=== PATIENT | female | born 1935 | race Caucasian/White ===

== ENCOUNTER 2023-03-17 23:12 | Emergency (ER) | payer MEDICARE, MEDICAID, SELFPAY ==
--- NOTE | ~2023-03-17 | CT_ITS ---
CT of the Abdomen and Pelvis: Indication: Abdominal pain Technique: 2.5 mm axial scans were obtained through the abdomen and pelvis following intravenous adm inistration of 85 cc of Omnipaque 350. Dose reduction technique was used on this scan by utilizing au tomated exposure control and iterative reconstruction technique. The dose-length product (DLP) was 10 58.00 mGy-cm. Findings: Scans through the lung bases demonstrate mild bibasilar atelectatic change. There is diffuse fatty infiltration of liver. There are very small layering gallstones. The spleen, p ancreas, adrenals and kidneys are within normal limits. There are atherosclerotic calcifications of t he aorta. No lymphadenopathy. No bowel obstruction or bowel wall thickening. There is no evidence to suggest acute appendicitis. Images through the pelvis were performed. Urinary bladder unremarkable. No pelvic mass seen. No ascit es. Impression: No acute abnormality. Cholelithiasis. Diffuse fatty infiltration of liver. Reviewed, dictated and finalized at location . RIBUTION SOLICITOR Impression: No acute abnormality. Cholelithiasis. Diffuse fatty infiltration of liver.
[2023-03-17 23:13] VITALS: BP 131/63; PULSE 78; RESP 18; TEMP 36.5; O2SAT 98
[2023-03-18 00:11] VITALS: BP 132/60; PULSE 73; RESP 16; O2SAT 97
[2023-03-18 00:13] LABS: Basophils Absolute Auto 0.1 K/mm3 (0.0-0.1); Basophils Percent Auto 0.7 % (0.2-1.2); Eosinophils Percent Auto 0.4 % (0-4.4); Hematocrit 34.1 % (37.0-47.0); Hemoglobin 10.5 g/dL (12.0-15.0); Immature Granulocyte Absolute 0.07 K/mm3 (0.00-0.031); Lymphocytes Absolute Auto 0.63 K/mm3 (0.9-3.2); Lymphocytes Percent Auto 9.3 % (18.3-44.2); Mean Corpuscular HGB Conc 30.8 g/dl (32-36); Mean Corpuscular Hemoglobin 27.3 pg (26-34); Mean Corpuscular Volume 88.8 fl (80-100); Neutrophils Percent Auto 74.6 % (45.5-73.1); Platelet Count Result 301 k/mm3 (150-375); Red Blood Count 3.84 M/mm3 (4.2-5.4); Red Cell Distribution Width 14.6 % (11.5-14.5); White Blood Count 6.8 K/mm3 (4.5-10.0)
[2023-03-18 00:38] LABS: Alanine Aminotransferase 20 U/L (6-35); Albumin Level 3.4 g/dL (3.5-5.1); Alkaline Phosphatase 128 U/L (38-126); Anion Gap 14 mmol/L (8-16); Aspartate Amino Transferase 20 U/L (14-36); Bilirubin,Total 1.2 mg/dL (0.2-1.3); Blood Urea Nitrogen 36 mg/dL (7-17); Carbon Dioxide 24 mmol/L (22-30); Chloride 104 mmol/L (98-107); Estimated CRCL calculation 28 ml/min; Estimated Glomerular Filt Rate 39; Glucose 277 mg/dL (65-110); Lipase 154 U/L (23-300); Potassium 3.9 mmol/L (3.4-5.0); Sodium 142 mmol/L (137-145)
[2023-03-18 00:40] LABS: Lactic Acid Reflex 1.3 mmol/L (0.7-2.0)
[2023-03-18 00:56] LABS: Estimated CRCL calculation 23 ml/min; Estimated Glomerular Filt Rate 31
[2023-03-18 01:01] LABS: INR 1.3; Partial Thromboplastin Time 39.1 SECONDS (22.3-36.8); Prothrombin Time 16.6 Seconds (11.1-14.7)
[2023-03-18 01:35] VITALS: BP 144/63; PULSE 54; RESP 15; TEMP 36.9; O2SAT 99
--- NOTE | 2023-03-18 01:41 | ED.GENADULT ---
HPI - General Adult General Chief complaint: Recheck/Abnormal Lab/Rx Stated complaint: ABNORMAL KUB AT FACILITY Time Seen by Provider: 03/17/23 23:29 History of Present Illness HPI narrative: Patient is a 7-year-old female who presents emergency department with chief complaint of abnormal abdominal x-ray. Patient from a local nursing facility apparently they did a KUB and notice there were loops of bowel that look enlarged. The patient currently has no complaint Related Data Allergies Allergy/AdvReac Type Severity Reaction Status Date / Time ciprofloxacin [From Cipro] Allergy Other Verified 03/18/23 02:55 levofloxacin Allergy Other Verified 03/18/23 02:55 Penicillins Allergy Other Verified 03/18/23 02:55 Sulfa (Sulfonamide Allergy Other Verified 03/18/23 02:55 Antibiotics) Review of Systems Review of Systems: A 10 system review of systems was completed on the patient and is negative except for what is stated in the HPI. Nursing and ancillary documentation was reviewed. PMFSH Social History Social History Smoking status: Never smoker Exam Narrative: GENERAL: Well-appearing, well-nourished, and in no acute distress. HEAD: Normocephalic, atraumatic. EYES: PERRLA and EOMI. ENT: Nares clear, no rhinorrhea or epistaxis. Mucous membranes moist. NECK: Supple. CHEST: Clear to auscultation. No respiratory distress. HEART: Regular rate and rhythm. No murmur heard. Normal peripheral pulses. ABDOMEN: Soft, nontender, nondistended, normal active bowel sounds. EXTREMITIES: Normal range of motion. No edema. SKIN: Warm, dry, no rash. NEURO: No focal deficits. Alert and oriented x1. PSYCH: Normal mood and affect. Course Vital Signs Vital signs: Vital Signs Temperature 36.5 C 03/17/23 23:13 Pulse Rate 78 03/17/23 23:13 Respiratory Rate 18 03/17/23 23:13 Blood Pressure 131/63 03/17/23 23:13 Pulse Oximetry 98 03/17/23 23:13 Oxygen Delivery Room Air 03/17/23 23:13 Temperature 36.9 C 03/18/23 01:35 Pulse Rate 54 L 03/18/23 01:35 Respiratory Rate 15 03/18/23 01:35 Blood Pressure 144/63 H 03/18/23 01:35 Pulse Oximetry 99 03/18/23 01:35 Oxygen Delivery Room Air 03/17/23 23:13 Medical Decision Making MDM Narrative Medical decision making narrative: Differential diagnosis includes small-bowel obstruction, intra-abdominal infection, Laboratory studies were obtained on the patient which showed a white blood cell count of 6.8 hemoglobin was 10.5 electrolytes showed a creatinine 1.6 glucose was 277 lactic acid was 1.3 bilirubin was 1.2 AST was 20 ALT was 20 alk-phos is [address] scan of the abdomen pelvis was read by [facility] and showed a distended gallbladder but otherwise no acute findings there is no evidence of acute diverticulitis no evidence of small-bowel obstruction and no evidence of acute appendicitis. Vital Signs Vital Signs: Vital Signs Temperature 36.5 C 03/17/23 23:13 Pulse Rate 78 03/17/23 23:13 Respiratory Rate 18 03/17/23 23:13 Blood Pressure 131/63 03/17/23 23:13 Pulse Oximetry 98 03/17/23 23:13 Oxygen Delivery Room Air 03/17/23 23:13 Temperature 36.9 C 03/18/23 01:35 Pulse Rate 54 L 03/18/23 01:35 Respiratory Rate 15 03/18/23 01:35 Blood Pressure 144/63 H 03/18/23 01:35 Pulse Oximetry 99 03/18/23 01:35 Oxygen Delivery Room Air 03/17/23 23:13 Lab Data 03/18/23 00:05 03/18/23 00:31 Labs: Lab Results 03/18/23 03/18/23 03/18/23 Range/Units 00:05 00:31 02:18 WBC 6.8 (4.5-10.0) K/mm3 RBC 3.84 L (4.2-5.4) M/mm3 Hgb 10.5 L (12.0-15.0) g/dL Hct 34.1 L (37.0-47.0) % MCV 88.8 (80-100) fl MCH 27.3 (26-34) pg MCHC 30.8 L (32-36) g/dl RDW 14.6 H (11.5-14.5) % Plt Count 301 (150-375) k/mm3 MPV 10.0 (7.4-10.4) fl Immature Gran % (Auto) 1.0 H
[2023-03-18 02:42] LABS: Appearance Urine Turbid (Clear); Bacteria Urine 4+ /hpf; Bilirubin Urine Negative (Negative); Blood Urine 2+ (Negative); Color Urine Yellow (Yellow); Glucose Urine UA 1+ mg/dL (Negative); Ketones Urine 2+ mg/dL (Negative); Leukocyte Esterase Ur 3+ LEU/UL (Negative); Nitrate Urine Negative (Negative); Protein Urine 3+ mg/dL (Negative); Specific Grav Ur 1.016 (1.001-1.035); Squamous Epithelial Cell Urine None seen /hpf (Few); Urobilinogen Urine 0.2 mg/dL (<2.0); WBC Urine >100 /hpf
[2023-03-18 02:45] LABS: Add Urine Microscopic? YES
[2023-03-18 04:10] VITALS: PULSE 63; RESP 16; O2SAT 98
== END 2023-03-18 04:10 ==
PROVIDERS: Emergency Provider Emergency Medicine; PCP Family Medicine
DX: R93.3 Abnormal findings on diagnostic imaging of other parts of digestive tract (principal); N39.0 Urinary tract infection, site not specified
CPT/HCPCS: 36415; 74177; 80053; 81001; 83605; 83690; 85025; 85610; 85730; 87077; 87086; 87186; 99284; Q9967

== ENCOUNTER 2023-03-25 08:39 | Outpatient (CLI) | payer MEDICARE, MEDICAID, SELFPAY ==
--- NOTE | ~2023-03-25 | NM_ITS ---
EXAMINATION: NM hepatobiliary wo pharm DATE: 03/25/2023 10:34 INDICATION: Cholelithiasis without obstruction COMPARISON: CT dated 03/18/2023 TECHNIQUE: 5 mCi Tc-99m mebrofenin (Choletec) was administered intravenously. Scintigraphic images o f the abdomen were obtained for one hour. At the 1 hour time point, the patient drank 8 oz Ensure, an d imaging was continued for 60 minutes. Gallbladder ejection fraction was calculated by the technolog ist. FINDINGS: There is normal clearance of radiotracer from the blood pool. There is homogeneous tracer u ptake by the liver. Activity progresses to the bowel and gallbladder. The gallbladder ejection fract ion (GBEF) is 80%. Note that with this technique, normal GBEF >= 33%. IMPRESSION: 1. Normal hepatobiliary scan Reviewed, dictated and finalized at location A. H SCIENCE TECHNICIAN
== END 2023-03-25 08:40 | disposition home or self-care (01) ==
PROVIDERS: PCP Family Medicine; Visit Provider Family Medicine
DX: K80.80 Other cholelithiasis without obstruction (principal)
CPT/HCPCS: 78226; A9537

== ENCOUNTER 2023-08-08 16:32 | Emergency (ER) | payer MEDICARE, MEDICAID, SELFPAY ==
--- NOTE | ~2023-08-08 | CT_ITS ---
EXAMINATION: CT brain wo con DATE: 08/08/2023 17:05 INDICATION: Head injury. TECHNIQUE: Computed tomography (CT) of the head was performed without intravenous contrast. The mA wa s adjusted according to patient size. Iterative reconstruction technique was employed. The dose-lengt h product was 605.33 mGy-cm. COMPARISON: None FINDINGS: There are old infarcts involving the right frontal parietal region and right temporal lobe. There are scattered areas of low attenuation in the cerebral white matter. There is no intracranial hemorrhage, acute infarction, or abnormal intracranial mass lesion. There is ex vacuo dilatation of t emporal horn right lateral ventricle. There are likely changes of ocular lens replacement surgeries. There is mild mucosal thickening in the paranasal sinuses. The mastoid air cells are normal. IMPRESSION: 1. 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 2. Mild nonspecific cerebral white matter disease, which likely represents chronic small vessel ische rima disease. Reviewed, dictated and finalized at location A. IMPRESSION: 1. 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 2. 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
[2023-08-08 16:33] VITALS: BP 142/55; PULSE 58; RESP 20; TEMP 36.4; O2SAT 100
--- NOTE | 2023-08-08 16:54 | PC.NURSE ---
pt taken to ct at this time
--- NOTE | 2023-08-08 17:05 | PC.NURSE ---
Pt returned to room 14
--- NOTE | 2023-08-08 17:16 | ED.FALL ---
HPI - Fall General Chief Complaint: Fall Stated Complaint: glf, hit head, blood thinners History of Present Illness HPI Narrative: 88-year-old female presents emergency department from local long-term for evaluation after having a ground level fall. 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 Patient is at her baseline currently. Patient does not recall the fall. Staff states that the fall was unwitnessed and are unsure the patient struck her head but they did note that the patient had hematoma. Patient denies any pain complaints. Related Data Allergies Allergy/AdvReac Type Severity Reaction Status Date / Time ciprofloxacin [From Cipro] Allergy Other Verified 03/18/23 02:55 levofloxacin Allergy Other Verified 03/18/23 02:55 Penicillins Allergy Other Verified 03/18/23 02:55 Sulfa (Sulfonamide Allergy Other Verified 03/18/23 02:55 Antibiotics) Review of Systems Review of Systems: All systems reviewed & are unremarkable except as noted in HPI and below PMFSH Social History Social History Smoking status: Never smoker Exam Narrative: APPEARANCE: Well appearing, no pain, no distress, well-nourished. HEAD: normocephalic, atraumatic. EYES: PERRLA/EOMI, conjunctivae clear. NOSE: Normal no drainage EARS:TMS clear with good light reflex. THROAT: Pharynx clear, no exudate. NECK: Supple. No adenopathy, no masses. RESPIRATORY: Airway patent, respirations nonlabored. Clear to auscultation bilaterally, no rales, rhonchi, wheezing. CARDIOVASCULAR: Regular rate and rhythm without murmurs rubs or gallops. ABDOMINAL: Soft, nontender, nondistended, normal bowel sounds MUSCULOSKELETAL: Moves all extremities. Strength/ROM intact, No edema, No calf tenderness. NEURO: Alert. Cranial nerves II through XII intact. Grossly intact SKIN: Warm, dry. Normal Color Course Vital Signs Vital signs: Vital Signs Temperature 97.5 F L 08/08/23 16:33 Pulse Rate 58 L 08/08/23 16:33 Respiratory Rate 20 08/08/23 16:33 Blood Pressure 142/55 H 08/08/23 16:33 Pulse Oximetry 100 08/08/23 16:33 Oxygen Delivery Room Air 08/08/23 16:33 Temperature 97.5 F L 08/08/23 16:33 Pulse Rate 55 L 08/08/23 17:43 Respiratory Rate 17 08/08/23 17:43 Blood Pressure 126/56 L 08/08/23 17:43 Pulse Oximetry 100 08/08/23 17:43 Oxygen Delivery Room Air 08/08/23 16:33 MDM - Fall MDM Narrative Medical decision making narrative: 88-year-old female presents to the emergency department for evaluation for a ground level fall and suspected head injury. Patient denies any pain or complaint. Patient had no cervical spine tenderness to palpation. Head CT showed no acute hemorrhage or infarct. On re-evaluation patient continues to deny any pain or complaint. Patient was discharged back to her care facility. Differential Diagnosis Differential diagnosis: Likely other (Subarachnoid hemorrhage, subdural hematoma, skull fracture, skeletal muscle injury) Imaging Data Radiologist's impression: Impressions Head CT 08/08/23 17:06 IMPRESSION: 1. 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 2. Mild nonspecific cerebral white matter disease, which likely represents chronic small vessel ischemic disease. Discharge Plan Discharge Clinical Impression: Head injury Patient Disposition: [place] Skilled Nursing/Asst Living Condition: Stable Instructions: Antibiotic Form Additional Instructions: Have close follow-up with your primary care physician Prescriptions: No Action cephalexin 500 mg capsule 500 mg PO Q12H 7 Days Qty: 14 0RF Follow-up/Referrals: Collette Walker MD [Primary Care Provider] -
[2023-08-08 17:43] VITALS: BP 126/56; PULSE 55; RESP 17; O2SAT 100
== END 2023-08-08 18:32 ==
PROVIDERS: Emergency Provider Emergency Medicine; PCP Family Medicine
DX: S09.90XA Unspecified injury of head, initial encounter (principal); F03.90 Unspecified dementia, unspecified severity, without behavioral disturbance, psychotic disturbance, mood disturbance, and anxiety; R90.82 White matter disease, unspecified; W19.XXXA Unspecified fall, initial encounter
CPT/HCPCS: 70450; 99284

== ENCOUNTER 2024-05-28 05:23 | Inpatient (IN) | payer OTHER, SELFPAY ==
[2024-05-28] VITALS (9 sets, daily range): BP systolic 105–162; BP diastolic 56–72; PULSE 58–76; RESP 15–19; TEMP 36.1–37.1; O2SAT 96–99; BMI 34.7
--- NOTE | ~2024-05-28 | CT_ITS ---
Non-contrast CT scan of the Abdomen and Pelvis Clinical indication: Abdominal distention Technique: 2.5 mm axial scans were obtained through the abdomen and pelvis without intravenous or or al contrast. Dose reduction technique was used on this scan by utilizing automated exposure control a nd iterative reconstruction technique. The dose-length product (DLP) was 1318.36 mGy-cm. COMPARISON: 03/18/2023 Findings: Images through the lung bases reveal no abnormalities. There is no evidence of renal or ureteral calculi. The kidneys and the ureters are nondilated. The liver, spleen, pancreas, and adrenals appear normal. Small layering gallstones/gallbladder sludge present. There are atherosclerotic calcifications of the aorta. . There is no evidence of bowel obstruction. Questionable minimal acute diverticulitis at the proximal transverse colon. Images through the pelvis were performed. There is no evidence of ascites or lymphadenopathy. Urinary bladder unremarkable. No pelvic mass seen. Status post hysterectomy. There is fracture of the L1 shanika tebral body, age indeterminate, but new since prior exam. Impression: Questionable minimal acute diverticulitis at the proximal transverse colon. L1 vertebral body compression fracture, age-indeterminate, likely subacute, new from prior exam. Cons ider MR to evaluate for marrow edema as indicated. Cholelithiasis/gallbladder sludge. Reviewed, dictated and finalized at [facility]. Impression: Questionable minimal acute diverticulitis at the proximal transverse colon. L1 vertebral body compression fracture, age-indeterminate, likely subacute, new from prior exam. Consider MR to evaluate for marrow edema as indicated. Cholelithiasis/gallbladder sludge.
--- NOTE | ~2024-05-28 | XR_ITS ---
Portable chest x-ray Comparison: None Clinical History: Altered mental status Findings: There is central congestive change and probable minimal basilar pulmonary edema. Cardiome diastinal silhouette is stable. Bones and soft tissues are unremarkable. Impression: Central congestive change and probable minimal bibasilar pulmonary edema. Reviewed, dictated and finalized at [facility]. Impression: Central congestive change and probable minimal bibasilar pulmonary edema.
--- NOTE | ~2024-05-28 | CT_ITS ---
CT head without contrast Indication: Altered mental status COMPARISON: 08/08/2023 Technique: Serial scans were obtained through the brain without the administration of contrast. Dose reduction technique was used on this scan by utilizing automated exposure control and iterative recon struction technique. The dose-length product (DLP) was 681.00 mGy-cm. Findings: There is no evidence of intracranial hemorrhage, mass lesion, or acute infarct. Stable righ t temporal lobe and right frontal lobe encephalomalacia. The ventricles and subarachnoid spaces are d ilated, consistent with advanced atrophy. Low attenuation regions are seen within the periventricula r white matter bilaterally, likely representing changes from chronic microvascular ischemic disease. There is no evidence of edema, mass effect or midline shift. The visualized paranasal sinuses and m astoid air cells are clear. Impression: No intracranial hemorrhage, mass, or acute infarct. Stable right temporal lobe and right frontal lobe encephalomalacia. Atrophy and chronic white matter changes, as above. Reviewed, dictated and finalized at location [facility]. Impression: No intracranial hemorrhage, mass, or acute infarct. Stable right temporal lobe and right frontal lobe encephalomalacia. Atrophy and chronic white matter changes, as above.
--- NOTE | ~2024-05-28 | US_ITS ---
EXAMINATION: US carotid duplex BI DATE: 05/29/2024 10:55 INDICATION: Transient ischemic attack. Cerebrovascular disease. TECHNIQUE: Grayscale, color Doppler, and pulsed Doppler images of the cervical carotid arteries were obtained. The degree of vessel stenosis is placed in one of the following categories: normal, <50%, 5 0-69%, >=70% but less than near-occlusion, near-occlusion, or total occlusion. Note that percent sten osis relative to normal distal artery lumen diameter is indirectly measured from velocity measurement s as described by Sj, et al. Radiology 2003; 229:340-346. COMPARISON: None. FINDINGS: RIGHT: The right common carotid artery (CCA) peak systolic velocity (PSV) is 79 cm/s. The right internal car otid artery (ICA) PSV is 61 cm/s. The right ICA end-diastolic velocity (EDV) is 8 cm/s. The right ICA /CCA PSV ratio is 0.8. Grayscale and color Doppler images yield an estimate of <50% diameter reductio n from plaque in the ICA. The external carotid artery (ECA) PSV is 85 cm/s. Per notation from the son ographer the patient was disoriented and confused and unable to remain still during evaluation preclu ding assessment of the vertebral arteries. LEFT: The left CCA PSV is 72 cm/s. The left ICA PSV is 54 cm/s. The left ICA EDV is 14 cm/s. The left ICA/C CA PSV ratio is 0.7. Grayscale and color Doppler images yield an estimate of <50% diameter reduction from plaque in the ICA. The ECA PSV is 93 cm/s. IMPRESSION: 1. <50% stenosis in the right internal carotid artery. 2. <50% stenosis in the left internal carotid artery. Reviewed, dictated and finalized at location [facility].
--- NOTE | ~2024-05-28 | MR_ITS ---
MRI of the brain Clinical History: Altered mental status, possible seizure Technique: Axial and sagittal T1-weighted images were acquired. These were followed by axial T2-weigh raul, diffusion weighted, gradient, and FLAIR images. Following intravenous administration of 18 cc Pr oHance gadolinium, T1-weighted fat-sat imaging was performed in the axial and coronal planes. Findings: There is no acute infarct, internal hemorrhage or mass lesion. There is chronic infarct ext ensively involving the anterior right temporal lobe. There are moderate to advanced chronic microvasc ular ischemic changes in the periventricular white matter. Ventricles and subarachnoid spaces are dilated. Orbits are unremarkable. There is mild sinus disease the floor the left maxillary sinus. Remaining paranasal sinuses and mastoid air cells are clear. [place] r intracranial flow voids appear intact. Sagittal midline structures are intact. No abnormal postcontrast enhancement identified. IMPRESSION: No acute abnormality. Chronic right temporal lobe infarct with background moderate to advanced chronic microvascular ischem ic change. Reviewed, dictated and finalized at location . IMPRESSION: No acute abnormality. Chronic right temporal lobe infarct with background moderate to advanced chroni c microvascular ischemic change.
--- NOTE | ~2024-05-28 | MR_ITS ---
EXAMINATION: MR lumbar spine wo con DATE: 05/30/2024 07:29 INDICATION: L1 fracture. TECHNIQUE: Magnetic resonance imaging (MRI) of the lumbar spine was performed without intravenous con trast. COMPARISON: CT 05/28/2024 FINDINGS: There is 11 degrees dextroscoliosis of lower lumbar spine. There is 9 degrees levocurvature of thoracolumbar spine. There is 3 mm anterolisthesis of L3 on L4 and L4 on L5. There is a burst fra cture of L1 with 1/5 loss of height, retropulsion of bone 4 mm into central spinal canal, and edema-l tyshawn marrow signal intensity. There is mildly decreased disc height at L3-L4, severely decreased disc height at L4-L5, and mildly decreased disc height at L5-S1. The distal spinal cord signal intensity i s normal. The conus medullaris is at L1-L2. The following disc levels are specifically discussed: L1-L2: The disc is bulging. There is moderate bilateral facet joint osteoarthritis. There is mild sebastian ateral neural foraminal stenosis. There is mild central canal stenosis. L2-L3: The disc is bulging. There is severe bilateral facet joint osteoarthritis. There is mild bilat eral neural foraminal stenosis. There is mild central canal stenosis. L3-L4: The disc is bulging and has an annular fissure. There is severe bilateral facet joint osteoart hritis. There is mild bilateral neural foraminal stenosis. There is mild central canal stenosis. L4-L5: The disc is bulging and has an annular fissure. There is severe bilateral facet joint osteoart hritis. There is moderate right and mild left neural foraminal stenosis. There is mild central canal stenosis. L5-S1: The disc is bulging. There is severe bilateral facet joint osteoarthritis. There is mild bilat eral neural foraminal stenosis. There is mild central canal stenosis. IMPRESSION: 1. L1 burst fracture, likely subacute. 2. Severe lumbar spondylosis. Reviewed, dictated and finalized at location A.
--- NOTE | 2024-05-28 05:26 | ECG_ITS ---
Test Date: 2024-05-28 05:29:43 Measurements Intervals [place] Rate: 68 P: 55 WA: 192 QRS: -9 QRSD: 78 T: 71 QT: 457 QTc: 489 Interpretive Statements SINUS RHYTHM NONSPECIFIC ST & T-WAVE ABNORMALITY PROLONGED QT INTERVAL No previous ECG available for comparison Electronically Signed On 05-28-2024 11:58:17 CDT by Duncan Gann M.D.
--- NOTE | 2024-05-28 05:28 | ED_ITS ---
HPI - General Adult General Chief complaint: Altered Mental Status Stated complaint: AMS, NEW ONSET SEIZURE? Time Seen by Provider: 05/28/24 05:26 History of Present Illness HPI narrative: Patient is a 8-year-old female who presents emergency department with chief complaint of altered mental status. Patient is from a local [facility] facility and apparently some tear between 445 and now became acutely altered per the EMS report the patient had rapid eye movement and may have had some seizure- like activity. He the patient has not been verbal since the incident patient was reported to have abdominal distension. Related Data Home Medications ?Medication ?Instructions ?Recorded ?Confirmed ?Last Taken ?Type No Home Medications 10/16/23 02/19/24 Unknown History Allergies Allergy/AdvReac Type Severity Reaction Status Date / Time ciprofloxacin (From Cipro) Allergy Other Verified 03/18/23 02:55 levofloxacin Allergy Other Verified 03/18/23 02:55 Penicillins Allergy Other Verified 03/18/23 02:55 Sulfa (Sulfonamide Allergy Other Verified 03/18/23 02:55 Antibiotics) Review of Systems 2 Review of Systems: A 10 system review of systems was completed on the patient and is negative except for what is stated in the HPI. Nursing and ancillary documentation was reviewed. [facility] Social History Social History Smoking status: Never smoker Course Vital Signs Vital signs: Vital Signs Temperature 37.1 C 05/28/24 05:21 Pulse Rate 72 05/28/24 05:21 Respiratory Rate 15 05/28/24 05:21 Blood Pressure 146/72 H 05/28/24 05:21 Pulse Oximetry 96 05/28/24 05:21 Oxygen Delivery Room Air 05/28/24 05:21 Temperature 37.1 C 05/28/24 05:21 Pulse Rate 72 05/28/24 05:21 Respiratory Rate 15 05/28/24 05:21 Blood Pressure 146/72 H 05/28/24 05:21 Pulse Oximetry 96 05/28/24 05:21 Oxygen Delivery Room Air 05/28/24 05:21 Medical Decision Making [facility] Narrative Medical decision making narrative: Differential diagnosis includes UTI, infection, ACS, intracranial hemorrhage, seizure, CVA The patient is contraindicated tPA as the patient may have had seizure-like activity also the patient has prior history of being on anticoagulants Patient initially was not able answer questions subsequently as the patient has been in the emergency department now she is able to answer questions at her baseline Vital Signs Vital Signs: Vital Signs Temperature 37.1 C 05/28/24 05:21 Pulse Rate 72 05/28/24 05:21 Respiratory Rate 15 05/28/24 05:21 Blood Pressure 146/72 H 05/28/24 05:21 Pulse Oximetry 96 05/28/24 05:21 Oxygen Delivery Room Air 05/28/24 05:21 Temperature 37.1 C 05/28/24 05:21 Pulse Rate 72 05/28/24 05:21 Respiratory Rate 15 05/28/24 05:21 Blood Pressure 146/72 H 05/28/24 05:21 Pulse Oximetry 96 05/28/24 05:21 Oxygen Delivery Room Air 05/28/24 05:21 Lab Data 05/28/24 05:43 05/28/24 05:43 Labs: Lab Results 05/28/24 Range/Units 05:43 WBC 7.7 (4.5-10.0) K/mm3 RBC 4.89 (4.2-5.4) M/mm3 Hgb 13.2 (12.0-15.0) g/dL Hct 42.1 (37.0-47.0) % MCV 86.1 (80-100) fl MCH 27.0 (26-34) pg MCHC 31.4 L (32-36) g/dl RDW 14.6 H (11.5-14.5) % Plt Count 332 (150-375) k/mm3 MPV 9.7 (7.4-10.4) fl Immature Gran % (Auto) 1.3 H (0-0.5) % Neut % (Auto) 69.3 (45.5-73.1) % Lymph % (Auto) 17.4 L (18.3-44.2) % [place] % (Auto) 8.6 H (2.6-8.5) % Eos % (Auto) 2.5 (0-4.4) % Baso % (Auto) 0.9 (0.2-1.2) % Lymph # (Auto) 1.33 (0.9-3.2) K/mm3 [place] # (Auto) 0.7 H (0.1-0.6) K/mm3 Eos # (Auto) 0.2 (0-0.3) K/mm3 Baso # (Auto) 0.1 (0.0-0.1) K/mm3 Abs Immat Gran (auto) 0.10 H (0.00-0.031) K/mm3 Absolute Neuts (auto) 5.3 (1.3-6.7) K/mm3 Absolute Nucleated RBC 0.000 (0.0-0.012) K/mm3 Nucleated RBC % 0.0 (0.0-0.2) % PT 13.2 (11.1-14.7) Seconds INR 1.0 APTT 27.2 (22.3-36.8) Seconds Sodium Pending Potassium Pending Chloride Pending Carbon Dioxide Pending Anion Gap Pending BUN Pending Creatinine Pending Estim Creat Clear Calc Pending Estimated GFR Pending Glucose Pending Lactic Acid 3.6 H (0.7-2.0) mmol/L Calcium Pending Magnesium Pending Total Bilirubin Pending AST Pending ALT Pending Alkaline Phosphatase Pending Troponin I Pending NT-Pro-B Natriuret Pep Pending Total Protein Pending Albumin Pending Lipase Pending Procalcitonin 0.1 ng/mL Urine Color Pending Urine Appearance Pending Urine pH Pending Ur Specific [place] Pending Urine Protein Pending Urine Glucose (UA) Pending Urine Ketones Pending Ur Blood (Man) Pending Urine Nitrate Pending Urine Bilirubin Pending Urine Urobilinogen Pending Leukocyte Esterase Rfl Pending Influenza A (RT-PCR) Negative (Negative) Influenza B (RT-PCR) Negative (Negative) RSV (RT-PCR) Negative (Negative) SARS-CoV-2 RNA (RT-PCR) Negative (Negative) ABG Data ABG results: 05/28/24 05:45 Puncture Site Right radial ABG pH 7.424 ABG pCO2 37.7 ABG pO2 69.3 L ABG PO2/FiO2 Ratio 3.30 ABG HCO3 24.1 ABG O2 Saturation 94.3 L ABG O2 Content 17.2 ABG Base Excess 0.0 A-a Gradient 35.3 Oxyhemoglobin 92.6 Total Hemoglobin 13.2 O2 Delivery Device Not Reportable O2 Liters/Min Not Reportable FiO2 21 Discharge Plan Discharge Clinical Impression: Altered mental status Patient Disposition: Still a Patient Condition: Stable Patient Language: Luxembourger Prescriptions: No Action No Home Medications Follow-up/Referrals: Denise,Collette Pineda MD [Primary Care Provider] - Time of Disposition: 06:38
--- OUTSIDE RECORDS SUMMARY | 2024-05-28 05:36 | XMS_ITS | Encounter Summary ---
Author Organization [facility] Health Address [address] [place] [address] Care Team Providers Care Sidewalk Repairer Name Role Phone Ramsey Peguero MD Primary Care Provider [phone] Encounter Details Date Type Department Care Team (Late st Contact Info) Description 11/17/2020 [facility] Outpatient Visit EXTERNAL NON-[facility] DEPT Geovanna Cardenas, PhD [facility] [address] Social History Tobacco Use Types Packs/Day Years Used Date Smoking Tobacco: Never Smokeless Tobacco: Never Alcohol Use Standard Drinks/Week Comments Not Currently 0 (1 standard drink = 0.6 oz pur e alcohol) rarely small amount Sex and Gender Information Value Date Recorded Sex Assigned at Not on file Gender Identity Not on file Sexual Orientation Not on file documented as of this encounter Plan of Treatment Not on file documented as of this encounter Visit Diagnoses Not on filedocumented in this encounter Care Teams Sidewalk Repairer Relationship Specialty Start Date End Date Ramsey Peguero MD [address] [place] [address] PCP - General 04/10/10 documented as of this encounter"
--- OUTSIDE RECORDS SUMMARY | 2024-05-28 05:36 | XMS_ITS | Clinical Summary ---
Author Organization [email or web address] [email or web address] Address [address] [address] Care Team Providers Care Pneumatic Press Hand Name Role Phone Ramsey Peguero MD Primary Care Provider [phone] Source Comments [facility] [email or web address],non-owned Affiliates and Associated Physician Practices is amultiple site organization consisting of ambulatory clinics and hospital sitesin [place], [place], [place] and [place]. This disclosure is being madepursuant to the Care Everywhere program and may not contain all information available regarding this patient. Last updated 17.[email or web address] Allergies Active Allergy Reactions Criticality Noted Date Comments Azithromycin Unknown 09/27/2020 Ciprofloxacin Urticaria,Rash Medium 09/27/2020 Nitrofurantoin Unknown 09/27/2020 Penicillins Unknown 09/27/2020 Quinolones Unknown 09/27/2020 Sulfa Drugs Unknown 09/27/2020 Tetracycline Unknown 09/27/2020 Medications * Be aware that medications may not be up to date on this document. Alwaysverify current medications with the patient. Medication Sig Dispensed Refills Start Date End Date Status metFORMIN (GLUCOPHAGE) 1000 MG tablet Take 1 tablet by mouth 2 times daily 09/16/2020 Active glimepiride (AMARYL) 2 MG tablet Take 1 tablet by mouth 2 times daily 09/16/2020 Active olmesartan (BENICAR) 5 MG tablet Take 1 tablet by mouth once daily Active aluminum & magnesium hydroxide (MAALOX) 200-200 MG/5ML suspension Take 5 mL by mouth every 6 hours as needed for Heartburn Active aspirin EC (ASPIRIN 81) 81 MG tablet Take 81 mg by mouth once daily Active lifitegrast (XIIDRA) 5 % opthalmic solution Instill 1 drop into both eyes 2 times daily 09/30/2019 Active estradiol (ESTRACE) 0.1 MG/GM vaginal cream Two times a week Active Probiotic Product (PROBIOTIC DAILY) capsule Take 1 capsule by mouth once daily Active Calcium Carbonate-Vit D-Min (CALCIUM 1200) 1552-6031 MG-UNIT CHEW Take 1 tablet by mouth once daily Active vitamin D3 (CHOLECALCIFEROL) 25 MCG (1000 UNITS) tablet Take 1,000 Units by mouth once daily Active multivitamin daily tablet Take 1 tablet by mouth daily with food Active B Complex Vitamins (VITAMIN B COMPLEX) tablet Take 1 tablet by mouth once daily Active vitamin C (ASCORBIC ACID) 1000 MG tablet Take 1,000 mg by mouth once daily Active zinc sulfate (ZINC-220) 220 (50 Zn) MG capsule Take 220 mg by mouth once daily Active magnesium 500 MG tablet Take 500 mg by mouth once daily Active Coenzyme Q10 (COQ10) 100 MG Take 1 capsule by mouth once daily Active Nutritional Supplements (OSTEO ADVANCE) TABS Take 1 tablet by mouth once daily Active Krill Oil 500 MG CAPS Take 1 tablet by mouth once daily Active Flaxseed, Linseed, (FLAX SEED OIL) 1000 MG Take 1 capsule by mouth once daily Active Conrad Oil (CONRAD SEED OIL EXTRACT) 1000 MG Take 1 capsule by mouth once daily Active psyllium (METAMUCIL) CAPS capsule Take 3 capsules by mouth 3 times daily Active Family History Medical History Relation Name Comments Alcohol abuse Brother Cancer Brother Diabetes - Type 1 Brother Heart Failure Brother High Cholesterol Brother Hypertension Brother Diabetes - Type 1 Father High Cholesterol Father Hypertension Father Renal Disease Father Alzheimer's Disease Mother Heart Failure Mother High Cholesterol Mother Hypertension Mother Thyroid Disease Mother Cancer - Breast Paternal Aunt Cancer Sister Cataract Sister High Cholesterol Sister Hypertension Sister Other Sister Thyroid Disease Sister Relation Name Status Comments Brother Father Mother Paternal Aunt Sister Social History Tobacco Use Types Packs/Day Years Used Date Smoking Tobacco: Never Smokeless Tobacco: Never Alcohol Use Standard Drinks/Week Comments Not Currently 0 (1 standard drink = 0.6 oz pur e alcohol) rarely small amount Sex and Gender Information Value Date Recorded Sex Assigned at Not on file Gender Identity Not on file Sexual Orientation Not on file Last Filed Vital Signs Vital Sign Reading Time Taken Comments Blood Pressure 140/64 09/27/2020 12:10 PM CDT Pulse 76 09/27/2020 12:10 PM CDT Temperature - - Respiratory Rate 14 09/27/2020 12:10 PM CDT Oxygen Saturation 98% 09/27/2020 12:10 PM CDT Inhaled Oxygen Concentration - - Weight 80.3 kg (177 lb) 09/27/2020 12:10 PM CDT Height 156.2 cm (5' 1.5 ) 09/27/2020 12:10 PM CD T Body Mass Index 32.9 09/27/2020 12:10 PM CDT Plan of Treatment Health Maintenance Due Date Last Done Comments BONE DENSITY TESTING 1935 MEDICARE AWV 12 MONTHS 1935 DTAP/TDAP/TD VACCINES (1 - Tdap) 1956 PNEUMOCOCCAL VACCINE 50+ (1 of 1 - PCV) 07/31/1987 ZOSTER VACCINE (1 of 2) 07/31/1987 Respiratory Syncytial Virus (RSV) Vaccine Pt: or over 60 yrs (1 - 1-dose 75+ series) 2012 COVID-19 VACCINE (3 - season) 2023 04/18/2020, 03/28/2020 INFLUENZA VACCINE (#1) 2023 0, 12/16/2018, 11/27/2017, Additional history exists DEPRESSION SCREENING 03/11/2024 HEPATITIS B VACCINE Aged Out No longe r eligible based on patient's age to complete this topic HIB VACCINE Aged Out No longer eligi ble based on patient's age to complete this topic HPV VACCINE Aged Out No longer eligi ble based on patient's age to complete this topic MENINGOCOCCAL (Group B) VACCINE SHARED DECISION-MAKING Aged Out No longer eligible based on patient's age to complete this topic MENINGOCOCCAL GROUPS A/C/Y/W VACCINE Aged Out No longer eligible based on patient's age to complete this topic Care Teams Pneumatic Press Hand Relationship Specialty Start Date End Date Ramsey Peguero MD [address] [place] [address] PCP - General 04/10/10
[2024-05-28 05:54] LABS: Alveolar/Arterial O2 Gradient 35.3 mmHg; Fractional Inspired Oxygen 21 %; HCO3 ABG 24.1 mEq/l (22.0-26.0); Oxygen Content ABG 17.2 %vol (16.0-22.0); Oxygen Saturation ABG 94.3 % (95.0-100.0); Oxyhemoglobin 92.6 % THb (90.0-100.0); PCO2 ABG 37.7 mmHg (35.0-45.0); PO2 ABG 69.3 mmHg (80.0-100.0); Total Hemoglobin 13.2 g/dL (12.0-18.0); pH ABG 7.424 (7.350-7.450)
[2024-05-28 05:56] LABS: Modified Allen's Test Pass; Site Drawn RIGHT RADIAL
[2024-05-28 06:04] LABS: Basophils Absolute Auto 0.1 K/mm3 (0.0-0.1); Basophils Percent Auto 0.9 % (0.2-1.2); Eosinophils Absolute Auto 0.2 K/mm3 (0-0.3); Eosinophils Percent Auto 2.5 % (0-4.4); Hematocrit 42.1 % (37.0-47.0); Hemoglobin 13.2 g/dL (12.0-15.0); Immature Granulocyte Percent A 1.3 % (0-0.5); Lymphocytes Absolute Auto 1.33 K/mm3 (0.9-3.2); Lymphocytes Percent Auto 17.4 % (18.3-44.2); Mean Corpuscular HGB Conc 31.4 g/dl (32-36); Mean Corpuscular Volume 86.1 fl (80-100); Mean Platelet Volume 9.7 fl (7.4-10.4); Monocytes Absolute Auto 0.7 K/mm3 (0.1-0.6); Monocytes Percent Auto 8.6 % (2.6-8.5); Neutrophils Absolute Auto 5.3 K/mm3 (1.3-6.7); Neutrophils Percent Auto 69.3 % (45.5-73.1); Platelet Count Result 332 k/mm3 (150-375); Red Blood Count 4.89 M/mm3 (4.2-5.4); Red Cell Distribution Width 14.6 % (11.5-14.5); White Blood Count 7.7 K/mm3 (4.5-10.0)
[2024-05-28 06:05] LABS: Lactic Acid Reflex 3.6 mmol/L (0.7-2.0)
[2024-05-28 06:09] LABS: Prothrombin Time 13.2 Seconds (11.1-14.7)
[2024-05-28 06:10] LABS: Partial Thromboplastin Time 27.2 Seconds (22.3-36.8)
[2024-05-28 06:27] LABS: Procalcitonin 0.1 ng/mL
[2024-05-28 06:29] LABS: Influenza A QL RT-PCR Negative (Negative); Influenza B QL RT-PCR Negative (Negative); RSV RNA, RT-PCR Negative (Negative); SARS-CoV-2 RNA PCR Negative (Negative)
[2024-05-28 06:43] LABS: Alanine Aminotransferase 31 U/L (6-35); Albumin Level 4.2 g/dL (3.5-5.1); Alkaline Phosphatase 193 U/L (38-126); Anion Gap 13 mmol/L (4-12); Aspartate Amino Transferase 22 U/L (14-36); Bilirubin,Total 0.8 mg/dL (0.2-1.3); Blood Urea Nitrogen 20 mg/dL (7-17); Calcium 5.3 mg/dL (8.4-10.2); Carbon Dioxide 28 mmol/L (22-30); Chloride 98 mmol/L (98-107); Estimated CRCL calculation 34 ml/min; Estimated Glomerular Filt Rate 43; Glucose 256 mg/dL (65-110); Lipase 267 U/L (23-300); Magnesium 1.7 mg/dL (1.6-2.3); NT Pro B Type Natriuretic Pept 366 pg/mL (19.9-100); Potassium 3.7 mmol/L (3.4-5.0); Sodium 139 mmol/L (137-145); Troponin I < 0.012 ng/mL (0.000-0.034)
[2024-05-28 06:49] LABS: Add Urine Microscopic? YES; Appearance Urine Clear (Clear); Bacteria Urine 4+ /hpf; Bilirubin Urine Negative (Negative); Blood Urine Negative (Negative); Color Urine Yellow (Yellow); Glucose Urine UA 1+ mg/dL (Negative); Ketones Urine Negative (Negative); Leukocyte Esterase Ur Negative LEU/UL (Negative); Need Manual Microscopic Reviewed; Nitrate Urine Positive (Negative); Non Pathogenic Casts 0-2; Protein Urine Negative (Negative); RBC Urine 0-2 /hpf (0-2); Specific Grav Ur 1.012 (1.001-1.035); Squamous Epithelial Cell Urine None Seen /hpf (Few); Urobilinogen Urine 0.2 mg/dL (<2.0); WBC Urine 0-5 /hpf (0-3)
[2024-05-28] MEDS: CALCIUM GLUCONATE 1,000 MG/10 ML VIAL 2000 MG IV PUSH (07:00)
[2024-05-28 07:50] LABS: Reflex Lactic Acid Yes or No Add Lactic
[2024-05-28 08:35] LABS: Lactic Acid 1.7 mmol/L (0.7-2.0)
--- NOTE | 2024-05-28 09:01 | ECG_ITS ---
Test Date: 2024-05-28 09:31:24 Measurements Intervals [place] Rate: 63 P: 14 TN: 176 QRS: -9 QRSD: 74 T: 74 QT: 397 QTc: 409 Interpretive Statements SINUS RHYTHM NONSPECIFIC ST & T-WAVE ABNORMALITY Compared to ECG 05/28/2024 05:29:43 Prolonged QT interval no longer present T-wave abnormality still present Electronically Signed On 05-28-2024 12:09:09 CDT by Duncan Gann M.D.
[2024-05-28 09:30] LABS: Troponin I < 0.012 ng/mL (0.000-0.034)
--- NOTE | 2024-05-28 10:05 | PC.NURSE ---
This patient, Gabriela Gutierrez, was admitted to 3 [facility] Surg Room 316-01. Patient/family oriented to hospital policies and general routines including ID bracelet, bed and alarms, visiting hours, pain management, procedures, bathroom and other care routines, personal items, smoking policy, room service/diet, and visiting hours. Information on how to activate the Rapid Response Team has been discussed. Patient/Family are encouraged to report perceived risks to care and to ask questions if they do not understand what they are told or what they should do.
--- NOTE | 2024-05-28 13:38 | PM.IMHP ---
H&P: HPI History of Present Illness Date/Time: 05/28/24 13:38 Chief Complaint: AMS-Seizures Narrative: ER-HPI narrative: Patient is a 8-year-old female who presents emergency department with chief complaint of altered mental status. Patient is from a local memory care facility and apparently some tear between 445 and now became acutely altered per the EMS report the patient had rapid eye movement and may have had some seizure-like activity. He the patient has not been verbal since the incident patient was reported to have abdominal distension. 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 MRI brain is ordered and pending, patient with c/o of abdominal distension Ct scan showed questionable minimal acute diverticulitis at the proximal transverse colon, will monitor. [facility] Past Medical History Medical History (Updated 05/29/24 @ 09:16 by Henok Kaplan MD) Cerebrovascular disease Social History Social History Smoking status: Never smoker Alcohol intake: never Substance use: never Do You Feel Safe in your Home?: Yes Lack of Transportation: No Lack of Food: Never True Current Housing: I Have Housing Concerned About Future Housing: No Difficulty Paying Gas/Electric Bills: No Difficulty Paying for Meds: No Currently Unemployed: No Education: Master's Degree or Higher Difficulty w/ Childcare or Family Care: No Spiritual care concerns: No Meds Home Medications and Allergies Home Medications ?Medication ?Instructions ?Recorded ?Confirmed ?Type acetaminophen 325 mg tablet 650 mg PO Q4H PRN pain 05/28/24 05/28/24 History (Tylenol) aluminum-mag hydroxide-simethicone 10 ml PO Q6H PRN indigestion 05/28/24 05/28/24 History 400 mg-400 mg-40 mg/5 mL oral susp (Maalox Maximum Strength) aspirin 81 mg chewable tablet 81 mg PO DAILY 05/28/24 05/28/24 History furosemide 40 mg tablet (Lasix) 40 mg PO DAILY 05/28/24 05/28/24 History glucagon HCl 1 mg solution for 1 mg subcut ONCE 05/28/24 05/28/24 History injection (Glucagon (HCl) Emergency Kit) insulin glargine 100 unit/mL (3 10 unit subcut DAILY 05/28/24 05/28/24 History mL) subcutaneous pen (Lantus Solostar U-100 Insulin) insulin glargine 100 unit/mL 10 unit subcut DAILY 05/28/24 05/28/24 History subcutaneous solution (Lantus U-100 Insulin) insulin lispro 100 unit/mL 1 sliding scale dose subcut 05/28/24 05/28/24 History subcutaneous half-unit pen USEASDIRECTD (Humalog Karsten KwikPen (U-100)) insulin lispro 100 unit/mL 5 unit subcut .COMPLEX 05/28/24 05/28/24 History subcutaneous half-unit pen (Humalog Karsten KwikPen (U-100)) losartan 25 mg tablet 25 mg PO DAILY 05/28/24 05/28/24 History magnesium hydroxide 400 mg/5 mL 10 ml PO DAILY 05/28/24 05/28/24 History oral suspension (Milk of Magnesia) metformin 1,000 mg tablet 1,000 mg PO BID 05/28/24 05/28/24 History omeprazole 20 mg tablet,delayed 20 mg PO DAILY 05/28/24 05/28/24 History release ondansetron 4 mg disintegrating 4 mg PO Q6H PRN nausea and vomiting 05/28/24 05/28/24 History tablet peg 400-propylene glycol (PF) 0.4 1 drp EACH EYE TID PRN dry eye(s) 05/28/24 05/28/24 History %-0.3 % eye drops in a dropperette (Systane (PF)) polyethylene glycol 3350 17 gram 17 g PO DAILY 05/28/24 05/28/24 History oral powder packet (Miralax) sennosides 8.6 mg capsule (senna) 8.6 mg PO BID 05/28/24 05/28/24 History trolamine salicylate 10 % topical 1 applic topical TID PRN muscle 05/28/24 05/28/24 History cream (Pain Relief (trolamine pain salicylate)) Allergies Allergy/AdvReac Type Severity Reaction Status Date / Time bromocriptine (From Cycloset) Allergy Unknown Verified 05/28/24 11:05 ciprofloxacin (From Cipro) Allergy Other Verified 03/18/23 02:55 levofloxacin Allergy Other Verified 03/18/23 02:55 morphine Allergy Unknown Verified 05/28/24 11:05 Penicillins Allergy Other Verified 03/18/23 02:55 Quinolones Allergy Hives Verified 05/28/24 11:05 Fexyhap-XIE-OcZ Reductase Allergy Unknown Verified 05/28/24 11:05 Inhibitor Sulfa (Sulfonamide Allergy Other Verified 03/18/23 02:55 Antibiotics) tetracycline Allergy Unknown Verified 05/28/24 11:05 warfarin Allergy Unknown Verified 05/28/24 11:05 cefuroxime AdvReac Mild Rash Verified 05/28/24 11:05 clindamycin AdvReac Hives Verified 05/28/24 11:05 Vital Signs Vital Signs - 24 hr 05/28/24 05:21 05/28/24 07:03 05/28/24 09:01 Temperature 37.1 C Pulse Rate 72 58 L 66 Respiratory Rate 15 19 16 Blood Pressure 146/72 H 128/70 162/69 H Pulse Oximetry 96 99 97 Oxygen Delivery Room Air 05/28/24 09:48 05/28/24 10:15 Temperature 36.1 C L Pulse Rate 62 68 Respiratory Rate 16 16 Blood Pressure 162/69 H 105/64 Pulse Oximetry 98 97 Oxygen Delivery Exam Narrative: Patient is comfortable, NAD HEENT: eyes are clear and none icteric LUNGS: Bilateral fair entry with rales HEART: RR S1S2 ABD: BS+, Soft and nontender Lower extremities: no edema SKIN: nonjaundiced Neuro: grossly intact. H&P: Results Labs Labs: Short CBC 05/28/24 Range/Units 05:43 WBC 7.7 (4.5-10.0) K/mm3 Hgb 13.2 (12.0-15.0) g/dL Hct 42.1 (37.0-47.0) % Plt Count 332 (150-375) k/mm3 BMP 05/28/24 05:43 Sodium 139 Potassium 3.7 Chloride 98 Carbon Dioxide 28 BUN 20 H D Creatinine 1.20 H Glucose 256 H Calcium 5.3 L* Cardiac Enzymes 05/28/24 05/28/24 Range/Units 05:43 09:03 Troponin I < 0.012 < 0.012 (0.000-0.034) ng/mL Liver Function 05/28/24 Range/Units 05:43 Total Bilirubin 0.8 (0.2-1.3) mg/dL AST 22 (14-36) U/L ALT 31 (6-35) U/L Alkaline Phosphatase 193 H (38-126) U/L Albumin 4.2 (3.5-5.1) g/dL Urine 05/28/24 Range/Units 05:43 Urine Color Yellow (Yellow) Urine Appearance Clear (Clear) Urine pH 5.0 (5.0-9.0) Ur Specific [place] 1.012 (1.001-1.035) Urine Protein Negative (Negative) mg/dL Urine Glucose (UA) 1+ H (Negative) mg/dL Assessment and Plan Assessment and plan (1) Dementia with anxiety: Qualifiers: Alzheimer's disease onset: late onset Dementia severity: moderate Dementia type: Alzheimer's Qualified Code(s): G30.1 - Alzheimer's disease with late onset; F02.B4 - Dementia in other diseases classified elsewhere, moderate, with anxiety Code(s): F03.94 - Unspecified dementia, unspecified severity, with anxiety Status: Acute (2) Altered mental status: Code(s): R41.82 - Altered mental status, unspecified Status: Acute (3) 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, unspecified, not intractable, without status epilepticus Status: Acute (4) Diabetes mellitus with diabetic dermatitis: Qualifiers: Diabetes mellitus intermediate teacher insulin use: without intermediate teacher use Diabetes mellitus type: type 2 Qualified Code(s): E11.620 - Type 2 diabetes mellitus with diabetic dermatitis Code(s): E11.620 - Type 2 diabetes mellitus with diabetic dermatitis Status: Acute (5) PVD (peripheral vascular disease): Code(s): I73.9 - Peripheral vascular disease, unspecified Status: Acute Plan 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 MRI brain is ordered and pending, patient with c/o of abdominal distension Ct scan showed questionable minimal acute diverticulitis at the proximal transverse colon, will monitor.
[2024-05-28 14:01] LABS: Vitamin D 25 Hydroxy 38.8 ng/mL
[2024-05-28 14:32] LABS: Folic Acid 17.6 ng/mL (2.76->20)
[2024-05-28] MEDS: metFORMIN HCL 500 MG TABLET 1000 MG PO (17:40)
[2024-05-28] MEDS: SENNOSIDES 8.6 MG TABLET PO (17:40)
[2024-05-28] MEDS: INSULIN ASPART (*BKC) 100 UNITS/ML SUB-Q ×2 (17:44→17:46)
[2024-05-28 17:45] LABS: Glucose Point of Care 227 mg/dl (65-105)
--- NOTE | 2024-05-28 17:48 | P.CONNEU_ITS ---
Assessment and Plan Assessment and plan (1) Altered mental status: Code(s): R41.82 - Altered mental status, unspecified Status: Acute (2) Dementia with anxiety: Qualifiers: Dementia type: Alzheimer's Alzheimer's disease onset: late onset D ementia severity: moderate Qualified Code(s): G30.1 - Alzheimer's disease with late onset; F02.B4 - Dementia in other diseases classified elsewhere, moderate, with anxiety Code(s): F03.94 - Unspecified dementia, unspecified severity, with anxiety Status: Acute (3) Cerebrovascular disease: Code(s): I67.9 - Cerebrovascular disease, unspecified Status: Acute Assessment and Plan: CT scan of brain shows old infarct in the right temporal lobe and right frontal lobe hence the possibility of recurrent cerebrovascular disease may be considered in the differential diagnosis. (4) CKD stage 3 due to type 2 diabetes mellitus: Code(s): E11.22 - Type 2 diabetes mellitus with diabetic chronic kidney disease; N18.30 - Chronic kidney disease, stage 3 unspecified Status: Acute Plan A change in mental status with subsequent return to somewhat of a baseline for a person with history of dementia does raise possibility of seizure disorder or transient ischemic attack or cardiac arrhythmia in terms of differential diagnosis. I would suggest continue to observe her. Serum B12 and vitamin-D and folic acid level and TSH were normal. Electrolytes were normal creatinine was slightly high at 1.00 and GFR was low at 43. Glucose 256. Lactic acid was high at 3.6. Underlying metabolic or infectious etiology may also be a consideration. CT scan of brain did not show any significant abnormalities there is area of encephalomalacia in the right temporal lobe and right frontal lobe which has been noted in the past also. I would suggest an EEG and carotid Doppler study and MRI of the brain besides clinical observation for any further recurrence of the symptoms. Please feel free to call me if you have any questions regarding this consultation. Consult date: 05/28/24 HPI: Gabriela Gutierrez is a 88 year old female Who I am evaluating for altered mental status. Patient wide awake and alert and able to talk but she does not know her current whereabouts. She carries diagnosis of dementia Alzheimer's type and she apparently came from a memory center. There is history of diabetes mellitus. I believe they EMT people have seen something that raise possibility of seizure- like activity. There is no prior history of seizures. She was unable to tell me the month or the year or where she lives at. She told me she lives in [place]. Review of Systems 2 Review of Systems: ROS unobtainable: Yes unobtainable due to mental status PMFSH Past Medical History Medical History (Updated 05/28/24 @ 17:56 by Venice Agrawal MD) Cerebrovascular disease Social History Social History Smoking status: Never smoker Alcohol intake: never Substance use: never Do You Feel Safe in your Home?: Yes Lack of Transportation: No Lack of Food: Never True Current Housing: I Have Housing Concerned About Future Housing: No Difficulty Paying Gas/Electric Bills: No Difficulty Paying for Meds: No Currently Unemployed: No Education: Master's Degree or Higher Difficulty w/ Childcare or Family Care: No Spiritual care concerns: No Meds Home Medications and Allergies Home Medications ?Medication ?Instructions ?Recorded ?Confirmed ?Type acetaminophen 325 mg tablet 650 mg PO Q4H PRN pain 05/28/24 05/28/24 History (Tylenol) aluminum-mag hydroxide-simethicone 10 ml PO Q6H PRN indigestion 05/28/24 05/28/24 History 400 mg-400 mg-40 mg/5 mL oral susp (Maalox Maximum Strength) aspirin 81 mg chewable tablet 81 mg PO DAILY 05/28/24 05/28/24 History furosemide 40 mg tablet (Lasix) 40 mg PO DAILY 05/28/24 05/28/24 History glucagon HCl 1 mg solution for 1 mg subcut ONCE 05/28/24 05/28/24 History injection (Glucagon (HCl) Emergency Kit) insulin glargine 100 unit/mL (3 10 unit subcut DAILY 05/28/24 05/28/24 History mL) subcutaneous pen (Lantus Solostar U-100 Insulin) insulin glargine 100 unit/mL 10 unit subcut DAILY 05/28/24 05/28/24 History subcutaneous solution (Lantus U-100 Insulin) insulin lispro 100 unit/mL 1 sliding scale dose subcut 05/28/24 05/28/24 History subcutaneous half-unit pen USEASDIRECTD (Humalog Karsten KwikPen (U-100)) insulin lispro 100 unit/mL 5 unit subcut .COMPLEX 05/28/24 05/28/24 History subcutaneous half-unit pen (Humalog Karsten IsaacPen (U-100)) losartan 25 mg tablet 25 mg PO DAILY 05/28/24 05/28/24 History magnesium hydroxide 400 mg/5 mL 10 ml PO DAILY 05/28/24 05/28/24 History oral suspension (Milk of Magnesia) metformin 1,000 mg tablet 1,000 mg PO BID 05/28/24 05/28/24 History omeprazole 20 mg tablet,delayed 20 mg PO DAILY 05/28/24 05/28/24 History release ondansetron 4 mg disintegrating 4 mg PO Q6H PRN nausea and vomiting 05/28/24 05/28/24 History tablet peg 400-propylene glycol (PF) 0.4 1 drp EACH EYE TID PRN dry eye(s) 05/28/24 05/28/24 History %-0.3 % eye drops in a dropperette (Systane (PF)) polyethylene glycol 3350 17 gram 17 g PO DAILY 05/28/24 05/28/24 History oral powder packet (Miralax) sennosides 8.6 mg capsule (senna) 8.6 mg PO BID 05/28/24 05/28/24 History trolamine salicylate 10 % topical 1 applic topical TID PRN muscle 05/28/24 05/28/24 History cream (Pain Relief (trolamine pain salicylate)) Allergies Allergy/AdvReac Type Severity Reaction Status Date / Time bromocriptine (From Cycloset) Allergy Unknown Verified 05/28/24 11:05 ciprofloxacin (From Cipro) Allergy Other Verified 03/18/23 02:55 levofloxacin Allergy Other Verified 03/18/23 02:55 morphine Allergy Unknown Verified 05/28/24 11:05 Penicillins Allergy Other Verified 03/18/23 02:55 Quinolones Allergy Hives Verified 05/28/24 11:05 Oyptehz-PKG-EdC Reductase Allergy Unknown Verified 05/28/24 11:05 Inhibitor Sulfa (Sulfonamide Allergy Other Verified 03/18/23 02:55 Antibiotics) tetracycline Allergy Unknown Verified 05/28/24 11:05 warfarin Allergy Unknown Verified 05/28/24 11:05 cefuroxime AdvReac Mild Rash Verified 05/28/24 11:05 clindamycin AdvReac Hives Verified 05/28/24 11:05 Vital Signs Vital Signs - 24 hr 05/28/24 05:21 05/28/24 07:03 05/28/24 09:01 Temperature 98.8 F Pulse Rate 72 58 L 66 Respiratory Rate 15 19 16 Blood Pressure 146/72 H 128/70 162/69 H Pulse Oximetry 96 99 97 Oxygen Delivery Room Air 05/28/24 09:48 05/28/24 10:15 05/28/24 14:00 Temperature 97.0 F L 97.0 F L Pulse Rate 62 68 76 Respiratory Rate 16 16 18 Blood Pressure 162/69 H 105/64 110/58 L Pulse Oximetry 98 97 98 Oxygen Delivery Exam 2 Narrative: Fully conscious alert, no aphasia or dysarthria. She does follow single step command but unable to follow 2 step commands. She does not cooperate very much for the evaluation of visual field. There is no facial asymmetry. Tongue was midline. Other cranials were grossly within normal limits. Motor system moving both upper and lower limbs however does not cooperate fully for me manual motor examination. Sensory is grossly intact. No involuntary movements. No cogwheeling was noted. No evidence of physical abuse noted. No evidence of external trauma to the head. Carotid artery the palpable. No bruit. Results Labs 05/28/24 05:43 05/28/24 05:43 Labs: Short CBC 05/28/24 Range/Units 05:43 WBC 7.7 (4.5-10.0) K/mm3 Hgb 13.2 (12.0-15.0) g/dL Hct 42.1 (37.0-47.0) % Plt Count 332 (150-375) k/mm3 [facility] 05/28/24 05:43 Sodium 139 Potassium 3.7 Chloride 98 Carbon Dioxide 28 BUN 20 H D Creatinine 1.20 H Glucose 256 H Calcium 5.3 L* Cardiac Enzymes 05/28/24 05/28/24 Range/Units 05:43 09:03 Troponin I < 0.012 < 0.012 (0.000-0.034) ng/mL Liver Function 05/28/24 Range/Units 05:43 Total Bilirubin 0.8 (0.2-1.3) mg/dL AST 22 (14-36) U/L ALT 31 (6-35) U/L Alkaline Phosphatase 193 H (38-126) U/L Albumin 4.2 (3.5-5.1) g/dL Urine 05/28/24 Range/Units 05:43 Urine Color Yellow (Yellow) Urine Appearance Clear (Clear) Urine pH 5.0 (5.0-9.0) Ur Specific [place] 1.012 (1.001-1.035) Urine Protein Negative (Negative) mg/dL Urine Glucose (UA) 1+ H (Negative) mg/dL
[2024-05-28 20:41] LABS: Glucose Point of Care 131 mg/dl (65-105)
[2024-05-29] VITALS (9 sets, daily range): BP systolic 122–129; BP diastolic 52–61; PULSE 56–72; RESP 14–17; TEMP 36.1–36.9; O2SAT 98–100
[2024-05-29 06:12] LABS: Hematocrit 38.4 % (37.0-47.0); Hemoglobin 11.8 g/dL (12.0-15.0); Mean Corpuscular HGB Conc 30.7 g/dl (32-36); Mean Corpuscular Hemoglobin 26.8 pg (26-34); Mean Corpuscular Volume 87.3 fl (80-100); Mean Platelet Volume 9.7 fl (7.4-10.4); Platelet Count Result 305 k/mm3 (150-375); Red Cell Distribution Width 14.4 % (11.5-14.5); White Blood Count 8.2 K/mm3 (4.5-10.0)
[2024-05-29 06:25] LABS: Anion Gap 10 mmol/L (4-12); Blood Urea Nitrogen 18 mg/dL (7-17); Calcium 5.8 mg/dL (8.4-10.2); Carbon Dioxide 29 mmol/L (22-30); Chloride 100 mmol/L (98-107); Estimated CRCL calculation 33 ml/min; Estimated Glomerular Filt Rate 47; Glucose 169 mg/dL (65-110); Potassium 4.2 mmol/L (3.4-5.0); Sodium 139 mmol/L (137-145)
[2024-05-29] MEDS: CALCIUM GLUC 2,000 MG/NS 100ML 2,000 MG/100 ML BAG 100 MG IVPB ×2 (06:56→13:10)
[2024-05-29 07:39] LABS: Glucose Point of Care 173 mg/dl (65-105)
[2024-05-29] MEDS: MAGNESIUM HYDROXIDE SUSP 30 ML UDC 10 ML PO (09:22)
[2024-05-29] MEDS: INSULIN GLARGINE (*BKC) 100 UNITS/ML 10 UNITS SUB-Q (09:23)
[2024-05-29] MEDS: polyethylene glycoL 3350 17 GM POWD.PACK PO (09:24)
[2024-05-29] MEDS: FUROSEMIDE 40 MG TABLET PO (09:25)
[2024-05-29] MEDS: PANTOPRAZOLE 40 MG TABLET PO (09:25)
[2024-05-29] MEDS: SENNOSIDES 8.6 MG TABLET PO ×2 (09:25→16:24)
[2024-05-29] MEDS: metFORMIN HCL 500 MG TABLET 1000 MG PO ×2 (09:25→16:24)
[2024-05-29] MEDS: ASPIRIN 81 MG CHEWABLE TABLET PO (09:25)
[2024-05-29] MEDS: LOSARTAN POTASSIUM 25 MG TABLET PO (09:26)
[2024-05-29 11:25] LABS: Glucose Point of Care 203 mg/dl (65-105)
--- NOTE | 2024-05-29 11:33 | PM.IMPN ---
Progress Note: A&P Assessment and Plan (1) Dementia with anxiety: Qualifiers: Alzheimer's disease onset: late onset Dementia severity: moderate Dementia type: Alzheimer's Qualified Code(s): G30.1 - Alzheimer's disease with late onset; F02.B4 - Dementia in other diseases classified elsewhere, moderate, with anxiety Code(s): F03.94 - Unspecified dementia, unspecified severity, with anxiety Status: Acute (2) Altered mental status: Code(s): R41.82 - Altered mental status, unspecified Status: Acute (3) 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, unspecified, not intractable, without status epilepticus Status: Acute (4) Diabetes mellitus with diabetic dermatitis: Qualifiers: Diabetes mellitus joint terminal attack controller insulin use: without joint terminal attack controller use Diabetes mellitus type: type 2 Qualified Code(s): E11.620 - Type 2 diabetes mellitus with diabetic dermatitis Code(s): E11.620 - Type 2 diabetes mellitus with diabetic dermatitis Status: Acute (5) PVD (peripheral vascular disease): Code(s): I73.9 - Peripheral vascular disease, unspecified Status: Acute Plan This is an 88-year-old female who presents to the ER with altered mental status. Patient has underlying dementia and from a local memory care center. Per EMS patient had rapid eye movement and had seizure-like activity has been nonverbal since the incident. Details not available. On ED evaluation her vitals were stable. Initially was unable to answer questions however was back to her baseline subsequently. Laboratory studies showed WBC of 7.7 hemoglobin 13.2 hematocrit of 42 platelet count of 332 ABG 7.42/37/69/24. Lactic acid high at 3.6. Chem panel with creatinine 1.1. Unremarkable electrolytes. Calcium low at 5.8. Troponin negative. Repeat lactate was 1.7. Vitamin-D 38.8 normal folate normal B12 normal at [address] head with no acute abnormality with stable right temporal lobe and right frontal lobe in encephalomalacia. He is admitted for further treatment. Neurology consulted. EEG pending and MRI brain with no acute abnormality. Chronic right temporal lobe infarct with background moderate to advanced chronic microvascular ischemic change noted. Carotid Doppler with less than 50% stenosis right and left internal carotid artery. Chest x-ray with central congestive change and probable minimal bibasilar pulmonary edema. CT abdomen pelvis with questionable minimal acute diverticulitis at proximal transverse colon. L1 vertebral body compression fracture age indeterminate likely subacute new from prior exam. Cholelithiasis/gallbladder sludge. UA negative urine culture growing E coli. Patient asymptomatic. 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 This is a chronic problem not able to take calcium supplement at home Will give calcium gluconate History of parathyroidectomy L1 vertebral body compression fracture age indeterminate no reports of back pain likely subacute. Will get MRI to further evaluate. This fracture was not present in March 2023 scan. If marrow edema and recent may benefit from TLSO brace. Neurosurgery consultation Minimal acute diverticulitis at proximal transverse colon questionable will treat with Zosyn. All also cover for UTI Hypertension Type 2 diabetes on insulin DVT prophylaxis Lovenox CKD stage 3 Code status full code Subjective Date/time seen: 05/29/24 11:33 Interval history: No overnight events reported. No new complaints. Patient almost back to baseline. Senior Environmental Technician at bedside Review of Systems Review of Systems: All systems reviewed & are unremarkable except as noted in HPI and below Exam Narrative: Patient is comfortable, NAD HEENT: eyes are clear and none icteric LUNGS: Bilateral fair entry with rales HEART: RR S1S2 ABD: BS+, Soft and nontender Lower extremities: no edema SKIN: nonjaundiced Neuro: grossly intact. Objective Data Vital Signs Vital Signs: Vital Signs - 24 hr 05/28/24 14:00 05/28/24 16:00 05/28/24 20:00 Temperature 97.0 F L Pulse Rate 76 66 67 Respiratory Rate 18 Blood Pressure 110/58 L Pulse Oximetry 98 Oxygen Delivery 05/28/24 21:34 05/29/24 00:00 05/29/24 04:00 Temperature 97.7 F Pulse Rate 69 56 L 57 L Respiratory Rate 16 Blood Pressure 127/56 L Pulse Oximetry 99 Oxygen Delivery 05/29/24 05:32 05/29/24 08:00 05/29/24 08:00 Temperature 97.2 F L Pulse Rate 70 59 L Respiratory Rate 16 Blood Pressure 129/61 Pulse Oximetry 100 100 Oxygen Delivery Room Air Intake/Output Intake/Output: Intake & Output 05/26/24 05/27/24 05/28/24 05/29/24 23:59 23:59 23:59 23:59 Intake Total 237 337 Output Total 300 Balance 237 37 Meds/Results Medications: Active Medications Generic Name Dose Route Start Last Admin Trade Name Freq PRN Reason Stop Dose Admin Acetaminophen 650 mg 05/28/24 14:33 Acetaminophen 325 Mg Tablet PO Q4H PRN pain Al Hydrox/Mg Hydrox/Simethicone 20 ml 05/28/24 14:53 Mag Hydrox/Al Hydrox/Simeth 30 Ml Udc PO Q6H PRN Indigestion Artificial Tears 1 drop 05/28/24 14:59 Artificial Tears Ophth Soln 15 Ml Bottle EACH EYE TID PRN Dry Eye(s) Aspirin 81 mg 05/29/24 09:00 05/29/24 09:25 Aspirin 81 Mg Chewable Tablet PO 81 mg DAILY OSCAR Administration Dextrose 12.5 gm 05/28/24 14:34 Dextrose 50% 25 Gm/50 Ml Syringe IV PUSH PRN PRN Hypoglycemia Protocol Furosemide 40 mg 05/29/24 09:00 05/29/24 09:25 Furosemide 40 Mg Tablet PO 40 mg DAILY OSCAR Administration Glucagon 1 mg 05/28/24 14:34 Glucagon For Inj 1 Mg Vial IM PRN PRN Hypoglycemia Protocol Glucose 15 gm 05/28/24 14:34 Glucose Oral Gel 15 Gm Of Glucse In 37.5 Gm Tube PO PRN PRN Hypoglycemia Protocol Dextrose 1,000 mls @ 100 mls/hr 05/28/24 14:34 Dextrose 5% 1,000 Ml IVPB PRN PRN Hypoglycemia Protocol Insulin Aspart 5 units 05/28/24 17:00 05/29/24 07:50 Insulin Aspart (*Bkc) 100 Units/Ml SUB-Q Not Given TIDWM OSCAR Insulin Aspart 1 - 2 units 05/28/24 21:00 05/28/24 23:01 Insulin Aspart (*Bkc) 100 Units/Ml SUB-Q Not Given [facility] Protocol Insulin Aspart 2 - 5 units 05/28/24 17:00 05/29/24 09:10 Insulin Aspart (*Bkc) 100 Units/Ml SUB-Q Not Given TIDWM [facility] Protocol Insulin Glargine 10 units 05/29/24 09:00 05/29/24 09:23 Insulin Glargine (*Bkc) 100 Units/Ml SUB-Q 10 units DAILY OSCAR Administration Losartan Potassium 25 mg 05/29/24 09:00 05/29/24 09:26 Losartan Potassium 25 Mg Tablet PO 25 mg DAILY OSCAR Administration Magnesium Hydroxide 10 ml 05/29/24 09:00 05/29/24 09:22 Magnesium Hydroxide Susp 30 Ml Udc PO 10 ml DAILY OSCAR Administration Metformin HCl 1,000 mg 05/28/24 17:00 05/29/24 09:25 Metformin Hcl 500 Mg Tablet PO 1,000 mg BID OSCAR Administration Ondansetron HCl 4 mg 05/28/24 14:33 Ondansetron Hcl Odt 4 Mg Tablet PO Q6H PRN nausea and vomiting Pantoprazole Sodium 40 mg 05/29/24 09:00 05/29/24 09:25 Pantoprazole 40 Mg Tablet PO 40 mg QAM OSCAR Administration Polyethylene Glycol 17 gm 05/29/24 09:00 05/29/24 09:24 Polyethylene Glycol 3350 17 Gm Powd.Pack PO 17 gm DAILY OSCAR Administration Senna 8.6 mg 05/28/24 17:00 05/29/24 09:25 Sennosides 8.6 Mg Tablet PO 8.6 mg BID OSCAR Administration Trolamine Salicylate 1 applic 05/28/24 14:33 Trolamine Salicylate 10% (*Bkc) 113 Gm Cream TOPICAL TID PRN muscle pain Radiology Results: ITS Impressions Abdomen/Pelvis CT 05/28/24 06:21 Impression: Questionable minimal acute diverticulitis at the proximal transverse colon. L1 vertebral body compression fracture, age-indeterminate, likely subacute, new from prior exam. Consider MR to evaluate for marrow edema as indicated. Cholelithiasis/gallbladder sludge. Head CT 05/28/24 06:23 Impression: No intracranial hemorrhage, mass, or acute infarct. Stable right temporal lobe and right frontal lobe encephalomalacia. Atrophy and chronic white matter changes, as above. Chest X-Ray 05/28/24 06:24 Impression: Central congestive change and probable minimal bibasilar pulmonary edema. Carotid Doppler Study 05/29/24 11:02 IMPRESSION: 1. <50% stenosis in the right internal carotid artery. 2. <50% stenosis in the left internal carotid artery. Brain MRI 05/29/24 11:09 IMPRESSION: No acute abnormality. Chronic right temporal lobe infarct with background moderate to advanced chronic microvascular ischemic change. Labs Labs: Laboratory Results - last 24 hr 05/28/24 05/28/24 05/28/24 13:06 17:41 20:19 WBC RBC Hgb Hct MCV MCH MCHC RDW Plt Count MPV Sodium Potassium Chloride Carbon Dioxide Anion Gap BUN Creatinine Estim Creat Clear Calc Estimated GFR Glucose POC Capillary Glucose 227 H 131 H Calcium Vitamin B12 585.0 Vitamin D 25-Hydroxy 38.8 Folate 17.6 TSH 1.660 05/29/24 05/29/24 05/29/24 05:29 07:31 11:17 WBC 8.2 RBC 4.40 Hgb 11.8 L Hct 38.4 MCV 87.3 MCH 26.8 MCHC 30.7 L RDW 14.4 Plt Count 305 MPV 9.7 Sodium 139 Potassium 4.2 Chloride 100 Carbon Dioxide 29 Anion Gap 10 BUN 18 H Creatinine 1.11 H Estim Creat Clear Calc 33 Estimated GFR 47 L Glucose 169 H POC Capillary Glucose 173 H 203 H Calcium 5.8 L* Vitamin B12 Vitamin D 25-Hydroxy Folate TSH
[2024-05-29] MEDS: INSULIN ASPART (*BKC) 100 UNITS/ML SUB-Q ×3 (11:50→16:25)
--- NOTE | 2024-05-29 13:27 | PCNEURO ---
EEG has been completed this AM. There will not be a Neurologist here to read it until this weekend.
[2024-05-29] MEDS: PIPERACILLN/TAZ 3.375GM/NS50ML 3.375 GM/50 ML BAG IVPB ×2 (14:36→20:26)
--- NOTE | 2024-05-29 16:19 | WPDNEUROSGPN ---
Progress Note: A&P Assessment and Plan (1) Burst fracture of lumbar vertebra: Code(s): S32.001A - Stable burst fracture of unspecified lumbar vertebra, initial encounter for closed fracture Status: Acute Plan I received a consult request this afternoon or this patient who was found to have an L1 burst fracture after presenting from her care home for altered mental status. I will see the patient in formal consult tomorrow. I have contacted [facility] who will fit her for an LSO brace either later today or tomorrow morning. She may be up and out of bed even without the brace and may work with physical therapy. Subjective Date/time seen: 05/29/24 16:19 Objective Data Vital Signs Vital Signs: Vital Signs - 24 hr 05/28/24 20:00 05/28/24 21:34 05/29/24 00:00 Temperature 97.7 F Pulse Rate 67 69 56 L Respiratory Rate 16 Blood Pressure 127/56 L Pulse Oximetry 99 Oxygen Delivery 05/29/24 04:00 05/29/24 05:32 05/29/24 08:00 Temperature 97.2 F L Pulse Rate 57 L 70 Respiratory Rate 16 Blood Pressure 129/61 Pulse Oximetry 100 100 Oxygen Delivery Room Air 05/29/24 08:00 05/29/24 12:00 05/29/24 14:00 Temperature 98.5 F Pulse Rate 59 L 67 72 Respiratory Rate 17 Blood Pressure 122/53 L Pulse Oximetry 100 Oxygen Delivery Intake/Output Intake/Output: Intake & Output 05/26/24 05/27/24 05/28/24 05/29/24 23:59 23:59 23:59 23:59 Intake Total 237 487 Output Total 300 Balance 237 187 Meds/Results Medications: Active Medications Generic Name Dose Route Start Last Admin Trade Name Freq PRN Reason Stop Dose Admin Acetaminophen 650 mg 05/28/24 14:33 Acetaminophen 325 Mg Tablet PO Q4H PRN pain Al Hydrox/Mg Hydrox/Simethicone 20 ml 05/28/24 14:53 Mag Hydrox/Al Hydrox/Simeth 30 Ml Udc PO Q6H PRN Indigestion Artificial Tears 1 drop 05/28/24 14:59 Artificial Tears Ophth Soln 15 Ml Bottle EACH EYE TID PRN Dry Eye(s) Aspirin 81 mg 05/29/24 09:00 05/29/24 09:25 Aspirin 81 Mg Chewable Tablet PO 81 mg DAILY OSCAR Administration Dextrose 12.5 gm 05/28/24 14:34 Dextrose 50% 25 Gm/50 Ml Syringe IV PUSH PRN PRN Hypoglycemia Protocol Furosemide 40 mg 05/29/24 09:00 05/29/24 09:25 Furosemide 40 Mg Tablet PO 40 mg DAILY OSCAR Administration Glucagon 1 mg 05/28/24 14:34 Glucagon For Inj 1 Mg Vial IM PRN PRN Hypoglycemia Protocol Glucose 15 gm 05/28/24 14:34 Glucose Oral Gel 15 Gm Of Glucse In 37.5 Gm Tube PO PRN PRN Hypoglycemia Protocol Dextrose 1,000 mls @ 100 mls/hr 05/28/24 14:34 Dextrose 5% 1,000 Ml IVPB PRN PRN Hypoglycemia Protocol Piperacillin/Tazobactam/Dextrose 3.375 gm in 50 mls @ 100 mls/hr 05/29/24 14:00 05/29/24 15:06 Zosyn 3.375 Gm/Ns 50 Ml IVPB Infused Q6H OSCAR Infusion Insulin Aspart 5 units 05/28/24 17:00 05/29/24 11:50 Insulin Aspart (*Bkc) 100 Units/Ml SUB-Q 5 units TIDWM OSCAR Administration Insulin Aspart 1 - 2 units 05/28/24 21:00 05/28/24 23:01 Insulin Aspart (*Bkc) 100 Units/Ml SUB-Q Not Given HS [facility]SCAR Protocol Insulin Aspart 2 - 5 units 05/28/24 17:00 05/29/24 11:50 Insulin Aspart (*Bkc) 100 Units/Ml SUB-Q 2 units TIDWM OSCAR Administration Protocol Insulin Glargine 10 units 05/29/24 09:00 05/29/24 09:23 Insulin Glargine (*Bkc) 100 Units/Ml SUB-Q 10 units DAILY OSCAR Administration Losartan Potassium 25 mg 05/29/24 09:00 05/29/24 09:26 Losartan Potassium 25 Mg Tablet PO 25 mg DAILY OSCAR Administration Magnesium Hydroxide 10 ml 05/29/24 09:00 05/29/24 09:22 Magnesium Hydroxide Susp 30 Ml Udc PO 10 ml DAILY OSCAR Administration Metformin HCl 1,000 mg 05/28/24 17:00 05/29/24 09:25 Metformin Hcl 500 Mg Tablet PO 1,000 mg BID OSCAR Administration Ondansetron HCl 4 mg 05/28/24 14:33 Ondansetron Hcl Odt 4 Mg Tablet PO Q6H PRN nausea and vomiting Pantoprazole Sodium 40 mg 05/29/24 09:00 05/29/24 09:25 Pantoprazole 40 Mg Tablet PO 40 mg QAM OSCAR Administration Polyethylene Glycol 17 gm 05/29/24 09:00 05/29/24 09:24 Polyethylene Glycol 3350 17 Gm Powd.Pack PO 17 gm DAILY OSCAR Administration Senna 8.6 mg 05/28/24 17:00 05/29/24 09:25 Sennosides 8.6 Mg Tablet PO 8.6 mg BID OSCAR Administration Trolamine Salicylate 1 applic 05/28/24 14:33 Trolamine Salicylate 10% (*Bkc) 113 Gm Cream TOPICAL TID PRN muscle pain Radiology Results: ITS Impressions Abdomen/Pelvis CT 05/28/24 06:21 Impression: Questionable minimal acute diverticulitis at the proximal transverse colon. L1 vertebral body compression fracture, age-indeterminate, likely subacute, new from prior exam. Consider MR to evaluate for marrow edema as indicated. Cholelithiasis/gallbladder sludge. Head CT 05/28/24 06:23 Impression: No intracranial hemorrhage, mass, or acute infarct. Stable right temporal lobe and right frontal lobe encephalomalacia. Atrophy and chronic white matter changes, as above. Chest X-Ray 05/28/24 06:24 Impression: Central congestive change and probable minimal bibasilar pulmonary edema. Carotid Doppler Study 05/29/24 11:02 IMPRESSION: 1. <50% stenosis in the right internal carotid artery. 2. <50% stenosis in the left internal carotid artery. Brain MRI 05/29/24 11:09 IMPRESSION: No acute abnormality. Chronic right temporal lobe infarct with background moderate to advanced chronic microvascular ischemic change. Labs Labs: Laboratory Results - last 24 hr 05/28/24 05/28/24 05/29/24 17:41 20:19 05:29 WBC 8.2 RBC 4.40 Hgb 11.8 L Hct 38.4 MCV 87.3 MCH 26.8 MCHC 30.7 L RDW 14.4 Plt Count 305 MPV 9.7 Sodium 139 Potassium 4.2 Chloride 100 Carbon Dioxide 29 Anion Gap 10 BUN 18 H Creatinine 1.11 H Estim Creat Clear Calc 33 Estimated GFR 47 L Glucose 169 H POC Capillary Glucose 227 H 131 H Calcium 5.8 L* 05/29/24 05/29/24 07:31 11:17 WBC RBC Hgb Hct MCV MCH MCHC RDW Plt Count MPV Sodium Potassium Chloride Carbon Dioxide Anion Gap BUN Creatinine Estim Creat Clear Calc Estimated GFR Glucose POC Capillary Glucose 173 H 203 H Calcium
[2024-05-29 16:34] LABS: Glucose Point of Care 131 mg/dl (65-105)
[2024-05-29 21:23] LABS: Glucose Point of Care 195 mg/dl (65-105)
[2024-05-30] VITALS (8 sets, daily range): BP systolic 117–145; BP diastolic 50–60; PULSE 59–78; RESP 14–20; TEMP 36.2–37.1; O2SAT 97–100
[2024-05-30] MEDS: PIPERACILLN/TAZ 3.375GM/NS50ML 3.375 GM/50 ML BAG IVPB ×4 (01:32→20:54)
--- NOTE | 2024-05-30 06:59 | PC.NURSE ---
Patient off unit to get MRI of lumbar. Transported by lab animal technician.
[2024-05-30 07:00] LABS: Hematocrit 37.5 % (37.0-47.0); Hemoglobin 11.8 g/dL (12.0-15.0); Mean Corpuscular HGB Conc 31.5 g/dl (32-36); Mean Corpuscular Volume 85.8 fl (80-100); Mean Platelet Volume 9.7 fl (7.4-10.4); Platelet Count Result 285 k/mm3 (150-375); Red Blood Count 4.37 M/mm3 (4.2-5.4); Red Cell Distribution Width 14.2 % (11.5-14.5); White Blood Count 6.8 K/mm3 (4.5-10.0)
[2024-05-30 07:25] LABS: Anion Gap 9 mmol/L (4-12); Blood Urea Nitrogen 17 mg/dL (7-17); Carbon Dioxide 27 mmol/L (22-30); Chloride 102 mmol/L (98-107); Estimated CRCL calculation 36 ml/min; Estimated Glomerular Filt Rate 51; Glucose 183 mg/dL (65-110); Potassium 3.8 mmol/L (3.4-5.0); Sodium 138 mmol/L (137-145)
[2024-05-30 07:53] LABS: Glucose Point of Care 191 mg/dl (65-105)
[2024-05-30] MEDS: CALCIUM GLUC 2,000 MG/NS 100ML 2,000 MG/100 ML BAG 100 MG IVPB (09:50)
[2024-05-30] MEDS: polyethylene glycoL 3350 17 GM POWD.PACK PO (10:05)
[2024-05-30] MEDS: MAGNESIUM HYDROXIDE SUSP 30 ML UDC 10 ML PO (10:05)
[2024-05-30] MEDS: ASPIRIN 81 MG CHEWABLE TABLET PO (10:07)
[2024-05-30] MEDS: PANTOPRAZOLE 40 MG TABLET PO (10:07)
[2024-05-30] MEDS: metFORMIN HCL 500 MG TABLET 1000 MG PO ×2 (10:08→17:33)
[2024-05-30] MEDS: LOSARTAN POTASSIUM 25 MG TABLET PO (10:08)
[2024-05-30] MEDS: FUROSEMIDE 40 MG TABLET PO (10:09)
[2024-05-30] MEDS: SENNOSIDES 8.6 MG TABLET PO ×2 (10:09→17:33)
[2024-05-30] MEDS: INSULIN GLARGINE (*BKC) 100 UNITS/ML 10 UNITS SUB-Q (10:13)
[2024-05-30 11:51] LABS: Glucose Point of Care 259 mg/dl (65-105)
--- NOTE | 2024-05-30 12:54 | P.CONNS_ITS ---
Assessment and Plan Assessment and plan (1) Burst fracture of lumbar vertebra: Code(s): S32.001A - Stable burst fracture of unspecified lumbar vertebra, initial encounter for closed fracture Status: Acute Plan Ms. Gutierrez is an 88-year-old female admitted for a seizure who was found to have an L1 burst fracture on abdominal imaging obtained seemingly for abdominal distention on admission. She does not complain of back pain or lower-extremity symptoms. She has not been out of bed since admission. She does not have any obvious focal neurologic deficit on exam. Imaging reveals a L1 burst fracture with no kyphosis, minimal retropulsion, and no significant central stenosis. She has been fitted for an LSO brace which she can wear for comfort when out of bed. She does not need to wear this in bed or at rest. She may be out of bed to chair. I recommend PT/OT evaluations for mobilization. I will arrange for follow up in our clinic in 4-6 weeks. Consult date: 05/30/24 HPI: Gabriela Gutierrez is a 88 year old female with hisotry of DM, HTN, dementia who was admitted on 05/28 for altered mental status related to a suspected seizure at her memory-care center. She was non-verbal on arrival to the hospital, but there was a report of abdominal distention which is presumably why an abdominal CT was obtained. This also showed an L1 burst fracture for which Neurosurgery was consulted. She has made improvements with her ability to speak, and on evaluation today she denied any back or leg pain or paresthesias. She does not think she has been out of bed or up to walk since admission and is unaware of whether she has pain when upright. Review of Systems 2 Review of Systems: All systems reviewed & are unremarkable except as noted in HPI and below [facility] Past Medical History Medical History (Updated 05/29/24 @ 16:22 by Krystal Choudhary MD) Cerebrovascular disease Social History Social History Smoking status: Never smoker Alcohol intake: never Substance use: never Do You Feel Safe in your Home?: Yes Lack of Transportation: No Lack of Food: Never True Current Housing: I Have Housing Concerned About Future Housing: No Difficulty Paying Gas/Electric Bills: No Difficulty Paying for Meds: No Currently Unemployed: No Education: Master's Degree or Higher Difficulty w/ Childcare or Family Care: No Spiritual care concerns: No Meds Home Medications and Allergies Home Medications ?Medication ?Instructions ?Recorded ?Confirmed ?Type acetaminophen 325 mg tablet 650 mg PO Q4H PRN pain 05/28/24 05/28/24 History (Tylenol) aluminum-mag hydroxide-simethicone 10 ml PO Q6H PRN indigestion 05/28/24 05/28/24 History 400 mg-400 mg-40 mg/5 mL oral susp (Maalox Maximum Strength) aspirin 81 mg chewable tablet 81 mg PO DAILY 05/28/24 05/28/24 History furosemide 40 mg tablet (Lasix) 40 mg PO DAILY 05/28/24 05/28/24 History glucagon HCl 1 mg solution for 1 mg subcut ONCE 05/28/24 05/28/24 History injection (Glucagon (HCl) Emergency Kit) insulin glargine 100 unit/mL (3 10 unit subcut DAILY 05/28/24 05/28/24 History mL) subcutaneous pen (Lantus Solostar U-100 Insulin) insulin glargine 100 unit/mL 10 unit subcut DAILY 05/28/24 05/28/24 History subcutaneous solution (Lantus U-100 Insulin) insulin lispro 100 unit/mL 1 sliding scale dose subcut 05/28/24 05/28/24 History subcutaneous half-unit pen USEASDIRECTD (Humalog Karsten KwikPen (U-100)) insulin lispro 100 unit/mL 5 unit subcut .COMPLEX 05/28/24 05/28/24 History subcutaneous half-unit pen (Humalog Karsten KwikPen (U-100)) losartan 25 mg tablet 25 mg PO DAILY 05/28/24 05/28/24 History magnesium hydroxide 400 mg/5 mL 10 ml PO DAILY 05/28/24 05/28/24 History oral suspension (Milk of Magnesia) metformin 1,000 mg tablet 1,000 mg PO BID 05/28/24 05/28/24 History omeprazole 20 mg tablet,delayed 20 mg PO DAILY 05/28/24 05/28/24 History release ondansetron 4 mg disintegrating 4 mg PO Q6H PRN nausea and vomiting 05/28/24 05/28/24 History tablet peg 400-propylene glycol (PF) 0.4 1 drp EACH EYE TID PRN dry eye(s) 05/28/24 05/28/24 History %-0.3 % eye drops in a dropperette (Systane (PF)) polyethylene glycol 3350 17 gram 17 g PO DAILY 05/28/24 05/28/24 History oral powder packet (Miralax) sennosides 8.6 mg capsule (senna) 8.6 mg PO BID 05/28/24 05/28/24 History trolamine salicylate 10 % topical 1 applic topical TID PRN muscle 05/28/24 05/28/24 History cream (Pain Relief (trolamine pain salicylate)) Allergies Allergy/AdvReac Type Severity Reaction Status Date / Time bromocriptine (From Cycloset) Allergy Unknown Verified 05/28/24 11:05 ciprofloxacin (From Cipro) Allergy Other Verified 03/18/23 02:55 levofloxacin Allergy Other Verified 03/18/23 02:55 morphine Allergy Unknown Verified 05/28/24 11:05 Penicillins Allergy Other Verified 03/18/23 02:55 Quinolones Allergy Hives Verified 05/28/24 11:05 [id number] Reductase Allergy Unknown Verified 05/28/24 11:05 Inhibitor Sulfa (Sulfonamide Allergy Other Verified 03/18/23 02:55 Antibiotics) tetracycline Allergy Unknown Verified 05/28/24 11:05 warfarin Allergy Unknown Verified 05/28/24 11:05 cefuroxime AdvReac Mild Rash Verified 05/28/24 11:05 clindamycin AdvReac Hives Verified 05/28/24 11:05 Vital Signs Vital Signs - 24 hr 05/29/24 14:00 05/29/24 16:00 05/29/24 20:02 Temperature 98.5 F Pulse Rate 72 64 62 Respiratory Rate 17 Blood Pressure 122/53 L Pulse Oximetry 100 Oxygen Delivery 05/29/24 20:56 05/29/24 21:50 05/30/24 00:02 Temperature 96.9 F L Pulse Rate 63 62 Respiratory Rate 14 Blood Pressure 125/52 L Pulse Oximetry 98 Oxygen Delivery Room Air 05/30/24 04:02 05/30/24 05:32 Temperature 97.1 F L Pulse Rate 59 L 65 Respiratory Rate 14 Blood Pressure 145/60 H Pulse Oximetry 100 Oxygen Delivery Exam 2 Narrative: Expressive aphasia Alert and oriented to self. Nonsensical words used to answer questions related to location and date Unable to name 2/2 objects but able to repeat phrase after some hesitation Some difficulty with following commands due to aphasia EOMI Symmetric smile Midline tongue protrusion Moving all extremities well with equal strength, but this is again somewhat limited due to her aphasia Lifting legs off bed Sensation intact to light touch Results Labs 05/30/24 06:27 05/30/24 06:27 Labs: Short CBC 05/30/24 Range/Units 06:27 WBC 6.8 (4.5-10.0) K/mm3 Hgb 11.8 L (12.0-15.0) g/dL Hct 37.5 (37.0-47.0) % Plt Count 285 (150-375) k/mm3 BMP 05/30/24 06:27 Sodium 138 Potassium 3.8 Chloride 102 Carbon Dioxide 27 BUN 17 Creatinine 1.02 H Glucose 183 H Calcium 6.0 L Imaging My impression: I personally reviewed the CT lumbar spine which shows an L1 burst fracture which shows 20% loss of height, no kyphosis, and 2-3mm of retropulsion without significant central stenosis I personally reviewed the MRI lumbar spine which shows an acute L1 burst fracture with small amount of retropulsion and no central stenosis
[2024-05-30] MEDS: INSULIN ASPART (*BKC) 100 UNITS/ML SUB-Q ×2 (13:05→17:37)
--- NOTE | 2024-05-30 13:06 | P.PNIM_ITS ---
Progress Note: A&P Assessment and Plan (1) Dementia with anxiety: Qualifiers: Dementia type: Alzheimer's Alzheimer's disease onset: late onset Dementia severity: moderate Qualified Code(s): G30.1 - Alzheimer's disease with late onset; F02.B4 - Dementia in other diseases classified elsewhere, moderate, with anxiety Code(s): F03.94 - Unspecified dementia, unspecified severity, with anxiety Status: Acute (2) Altered mental status: Code(s): R41.82 - Altered mental status, unspecified Status: Acute (3) 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, unspecified, not intractable, without status epilepticus Status: Acute (4) Diabetes mellitus with diabetic dermatitis: Qualifiers: Diabetes mellitus type: type 2 Diabetes mellitus buttermaker continuous churn insulin use: without buttermaker continuous churn use Qualified Code(s): E11.620 - Type 2 diabetes mellitus with diabetic dermatitis Code(s): E11.620 - Type 2 diabetes mellitus with diabetic dermatitis Status: Acute (5) PVD (peripheral vascular disease): Code(s): I73.9 - Peripheral vascular disease, unspecified Status: Acute Plan This is an 88-year-old female who presents to the ER with altered mental status. Patient has underlying dementia and from a local memory care center. Per EMS patient had rapid eye movement and had seizure-like activity has been nonverbal since the incident. Details not available. On ED evaluation her vitals were stable. Initially was unable to answer questions however was back to her baseline subsequently. Laboratory studies showed WBC of 7.7 hemoglobin 13.2 hematocrit of 42 platelet count of 332 ABG 7.42/37/69/24. Lactic acid high at 3.6. Chem panel with creatinine 1.1. Unremarkable electrolytes. Calcium low at 5.8. Troponin negative. Repeat lactate was 1.7. Vitamin-D 38.8 normal folate normal B12 normal at [address] head with no acute abnormality with stable right temporal lobe and right frontal lobe in encephalomalacia. He is admitted for further treatment. Neurology consulted. EEG pending and MRI brain with no acute abnormality. Chronic right temporal lobe infarct with background moderate to advanced chronic microvascular ischemic change noted. Carotid Doppler with less than 50% christophe nosis right and left internal carotid artery. Chest x-ray with central congestive change and probable minimal bibasilar pulmonary edema. CT abdomen pelvis with questionable minimal acute diverticulitis at proximal transverse colon. L1 vertebral body compression fracture age indeterminate likely subacute new from prior exam. Cholelithiasis/gallbladder sludge. UA negative urine culture growing E coli. Patient asymptomatic. Will hold off on antibiotic however on Zosyn. 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 This is a chronic problem not able to take calcium supplement at home Will give calcium gluconate History of parathyroidectomy L1 vertebral body compression fracture age indeterminate no reports of back pain likely subacute. Will get MRI to further evaluate. This fracture was not present in March 2023 scan. If marrow edema and recent may benefit from TLSO brace. Neurosurgery consultation Minimal acute diverticulitis at proximal transverse colon questionable will treat with Zosyn. This will also cover for UTI Hypertension Type 2 diabetes on insulin DVT prophylaxis Lovenox CKD stage 3 Code status full code Subjective Date/time seen: 05/30/24 13:06 Interval history: No overnight events. Patient demented. Denies any abdominal pain. Denies any back pain. Review of Systems Review of Systems: All systems reviewed & are unremarkable except as noted in HPI and below Exam Narrative: Patient is comfortable, NAD HEENT: eyes are clear and none icteric LUNGS: Bilateral fair entry with rales HEART: RR S1S2 ABD: BS+, Soft and nontender Lower extremities: no edema SKIN: nonjaundiced Neuro: grossly intact. Objective Data Vital Signs Vital Signs: Vital Signs - 24 hr 05/29/24 14:00 05/29/24 16:00 05/29/24 20:02 Temperature 98.5 F Pulse Rate 72 64 62 Respiratory Rate 17 Blood Pressure 122/53 L Pulse Oximetry 100 Oxygen Delivery 05/29/24 20:56 05/29/24 21:50 05/30/24 00:02 Temperature 96.9 F L Pulse Rate 63 62 Respiratory Rate 14 Blood Pressure 125/52 L Pulse Oximetry 98 Oxygen Delivery Room Air 05/30/24 04:02 05/30/24 05:32 Temperature 97.1 F L Pulse Rate 59 L 65 Respiratory Rate 14 Blood Pressure 145/60 H Pulse Oximetry 100 Oxygen Delivery Intake/Output Intake/Output: Intake & Output 05/27/24 05/28/24 05/29/24 05/30/24 23:59 23:59 23:59 23:59 Intake Total 237 1037 680 Output Total 800 400 Balance 237 237 280 Meds/Results Medications: Active Medications Generic Name Dose Route Start Last Admin Trade Name Freq PRN Reason Stop Dose Admin Acetaminophen 650 mg 05/28/24 14:33 Acetaminophen 325 Mg Tablet PO Q4H PRN pain Al Hydrox/Mg Hydrox/Simethicone 20 ml 05/28/24 14:53 Mag Hydrox/Al Hydrox/Simeth 30 Ml Udc PO Q6H PRN Indigestion Artificial Tears 1 drop 05/28/24 14:59 Artificial Tears Ophth Soln 15 Ml Bottle EACH EYE TID PRN Dry Eye(s) Aspirin 81 mg 05/29/24 09:00 05/30/24 10:07 Aspirin 81 Mg Chewable Tablet PO 81 mg DAILY OSCAR Administration Dextrose 12.5 gm 05/28/24 14:34 Dextrose 50% 25 Gm/50 Ml Syringe IV PUSH PRN PRN Hypoglycemia Protocol Furosemide 40 mg 05/29/24 09:00 05/30/24 10:09 Furosemide 40 Mg Tablet PO 40 mg DAILY OSCAR Administration Glucagon 1 mg 05/28/24 14:34 Glucagon For Inj 1 Mg Vial IM PRN PRN Hypoglycemia Protocol Glucose 15 gm 05/28/24 14:34 Glucose Oral Gel 15 Gm Of Glucse In 37.5 Gm Tube PO PRN PRN Hypoglycemia Protocol Dextrose 1,000 mls @ 100 mls/hr 05/28/24 14:34 Dextrose 5% 1,000 Ml IVPB PRN PRN Hypoglycemia Protocol Piperacillin/Tazobactam/Dextrose 3.375 gm in 50 mls @ 100 mls/hr 05/29/24 14:00 05/30/24 10:32 Zosyn 3.375 Gm/Ns 50 Ml IVPB Infused Q6H [facility] Infusion Insulin Aspart 5 units 05/28/24 17:00 05/30/24 09:56 Insulin Aspart (*Bkc) 100 Units/Ml SUB-Q Not Given TIDWM [facility]SCAR Insulin Aspart 1 - 2 units 05/28/24 21:00 05/29/24 20:34 Insulin Aspart (*Bkc) 100 Units/Ml SUB-Q Not Given HS [facility] Protocol Insulin Aspart 2 - 5 units 05/28/24 17:00 05/30/24 09:57 Insulin Aspart (*Bkc) 100 Units/Ml SUB-Q Not Given TIDWM [facility] Protocol Insulin Glargine 10 units 05/29/24 09:00 05/30/24 10:13 Insulin Glargine (*Bkc) 100 Units/Ml SUB-Q 10 units DAILY OSCAR Administration Losartan Potassium 25 mg 05/29/24 09:00 05/30/24 10:08 Losartan Potassium 25 Mg Tablet PO 25 mg DAILY OSCAR Administration Magnesium Hydroxide 10 ml 05/29/24 09:00 05/30/24 10:05 Magnesium Hydroxide Susp 30 Ml Udc PO 10 ml DAILY OSCAR Administration Metformin HCl 1,000 mg 05/28/24 17:00 05/30/24 10:08 Metformin Hcl 500 Mg Tablet PO 1,000 mg BID OSCAR Administration Ondansetron HCl 4 mg 05/28/24 14:33 Ondansetron Hcl Odt 4 Mg Tablet PO Q6H PRN nausea and vomiting Pantoprazole Sodium 40 mg 05/29/24 09:00 05/30/24 10:07 Pantoprazole 40 Mg Tablet PO 40 mg QAM [facility] Administration Polyethylene Glycol 17 gm 05/29/24 09:00 05/30/24 10:05 Polyethylene Glycol 3350 17 Gm Powd.Pack PO 17 gm DAILY OSCAR Administration Senna 8.6 mg 05/28/24 17:00 05/30/24 10:09 Sennosides 8.6 Mg Tablet PO 8.6 mg BID OSCAR Administration Trolamine Salicylate 1 applic 05/28/24 14:33 Trolamine Salicylate 10% (*Bkc) 113 Gm Cream TOPICAL TID PRN muscle pain Radiology Results: ITS Impressions Abdomen/Pelvis CT 05/28/24 06:21 Impression: Questionable minimal acute diverticulitis at the proximal transverse colon. L1 vertebral body compression fracture, age-indeterminate, likely subacute, new from prior exam. Consider MR to evaluate for marrow edema as indicated. Cholelithiasis/gallbladder sludge. Head CT 05/28/24 06:23 Impression: No intracranial hemorrhage, mass, or acute infarct. Stable right temporal lobe and right frontal lobe encephalomalacia. Atrophy and chronic white matter changes, as above. Chest X-Ray 05/28/24 06:24 Impression: Central congestive change and probable minimal bibasilar pulmonary edema. Carotid Doppler Study 05/29/24 11:02 IMPRESSION: 1. <50% stenosis in the right internal carotid artery. 2. <50% stenosis in the left internal carotid artery. Brain MRI 05/29/24 11:09 IMPRESSION: No acute abnormality. Chronic right temporal lobe infarct with background moderate to advanced chronic microvascular ischemic change. Labs Labs: Laboratory Results - last 24 hr 05/29/24 05/29/24 05/30/24 16:19 20:33 06:27 WBC 6.8 RBC 4.37 Hgb 11.8 L Hct 37.5 MCV 85.8 MCH 27.0 MCHC 31.5 L RDW 14.2 Plt Count 285 MPV 9.7 Sodium 138 Potassium 3.8 Chloride 102 Carbon Dioxide 27 Anion Gap 9 BUN 17 Creatinine 1.02 H Estim Creat Clear Calc 36 Estimated GFR 51 L Glucose 183 H POC Capillary Glucose 131 H 195 H Calcium 6.0 L 05/30/24 05/30/24 07:41 11:36 WBC RBC Hgb Hct MCV MCH MCHC RDW Plt Count MPV Sodium Potassium Chloride Carbon Dioxide Anion Gap BUN Creatinine Estim Creat Clear Calc Estimated GFR Glucose POC Capillary Glucose 191 H 259 H Calcium
[2024-05-30 16:25] LABS: Glucose Point of Care 215 mg/dl (65-105)
--- NOTE | 2024-05-30 16:41 | WPDNEUROLOGY ---
Neurology EEG Report General Information Date of Study: 05/29/24 TEST Electroencephalogram DIAGNOSIS dementia and sudden changes in mental status CONDITION OF RECORDING bedside EEG NUMBER 25-33 CLINICAL HISTORY history of sudden change in mental status in a patient with history of dementia EEG DESCRIPTION the background activity consists of mixed frequency low amplitude activity predominantly in theta range. Significant muscle tension artifacts were noted. Patient unable to cooperate during the study since he could not keep eyes closed and would not keep her jaw relaxed. She kept clenching her jaw which produced muscle tension artifacts throughout. Hyperventilation or photic stimulation are not performed. The test was ended early due to the patient's movement and pulling off some of the electrodes. IMPRESSION This is a limited EEG recording performed in the awake state due to presence of significant muscle tension artifact due to clenching of the jaw. Patient unable to cooperate. During the portion which could be interpreted there is diffuse background slowing suggestive of generalized encephalopathy. No focal or paroxysmal abnormalities were noted. If clinically relevant a follow-up study with recording of sleep may be helpful.
--- NOTE | 2024-05-30 17:47 | WPDNEUROPN ---
Progress Note: A&P Assessment and Plan (1) 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, unspecified, not intractable, without status epilepticus Status: Acute (2) Burst fracture of lumbar vertebra: Code(s): S32.001A - Stable burst fracture of unspecified lumbar vertebra, initial encounter for closed fracture Status: Acute (3) Alzheimer's dementia with anxiety: Code(s): G30.9 - Alzheimer's disease, unspecified; F02.84 - Dementia in other diseases classified elsewhere, unspecified severity, with anxiety Status: Acute Plan I discussed with the hospitalist team regarding the patient. MRI of the brain did not show any acute or new findings however there is a chronic right temporal infarct with background of moderate to severe chronic microvascular ischemic changes. Of course this could be a source for her having a seizure. The overall picture does raise possibility of partial complex seizures and hence I would suggest to keep her Keppra 500 mg twice a day. Carotid Doppler study shows less than 50% narrowing in both carotid arteries. EEG was inconclusive since there is significant muscle tension artifact. In the readable portion no focal or paroxysmal epileptiform abnormalities were seen. Subjective Date/time seen: 05/30/24 17:47 Interval history: Patient 88 years old white female seen for follow-up evaluation. I saw her previously on 05/28/2024 for change in mental status. She underwent MRI of the brain and carotid Doppler study and EEG as I had suggested. The patient did have some episode at the beginning that was suspicious or seizure-like activity. She has not had any further spells. There is also finding of a burst fracture of L1 for which the patient is being evaluated by the neuro surgical service. There is history of diabetes mellitus. She denies any active symptoms. Review of Systems Review of Systems: No additional symptoms reported at this time. Exam Narrative: Fully conscious alert. No aphasia or dysarthria. No involuntary movements. Exam showed cranial nerves and motor system was within acceptable normal limits. Objective Data Vital Signs Vital Signs: Vital Signs - 24 hr 05/29/24 20:02 05/29/24 20:56 05/29/24 21:50 Temperature 96.9 F L Pulse Rate 62 63 Respiratory Rate 14 Blood Pressure 125/52 L Pulse Oximetry 98 Oxygen Delivery Room Air 05/30/24 00:02 05/30/24 04:02 05/30/24 05:32 Temperature 97.1 F L Pulse Rate 62 59 L 65 Respiratory Rate 14 Blood Pressure 145/60 H Pulse Oximetry 100 Oxygen Delivery 05/30/24 14:00 Temperature 97.9 F Pulse Rate 72 Respiratory Rate 20 Blood Pressure 117/52 L Pulse Oximetry 97 Oxygen Delivery Intake/Output Intake/Output: Intake & Output 05/27/24 05/28/24 05/29/24 05/30/24 23:59 23:59 23:59 23:59 Intake Total 237 1037 680 Output Total 800 400 Balance 237 237 280 Meds/Results Medications: Active Medications Generic Name Dose Route Start Last Admin Trade Name Freq PRN Reason Stop Dose Admin Acetaminophen 650 mg 05/28/24 14:33 Acetaminophen 325 Mg Tablet PO Q4H PRN pain Al Hydrox/Mg Hydrox/Simethicone 20 ml 05/28/24 14:53 Mag Hydrox/Al Hydrox/Simeth 30 Ml Udc PO Q6H PRN Indigestion Artificial Tears 1 drop 05/28/24 14:59 Artificial Tears Ophth Soln 15 Ml Bottle EACH EYE TID PRN Dry Eye(s) Aspirin 81 mg 05/29/24 09:00 05/30/24 10:07 Aspirin 81 Mg Chewable Tablet PO 81 mg DAILY OSCAR Administration Dextrose 12.5 gm 05/28/24 14:34 Dextrose 50% 25 Gm/50 Ml Syringe IV PUSH PRN PRN Hypoglycemia Protocol Furosemide 40 mg 05/29/24 09:00 05/30/24 10:09 Furosemide 40 Mg Tablet PO 40 mg DAILY OSCAR Administration Glucagon 1 mg 05/28/24 14:34 Glucagon For Inj 1 Mg Vial IM PRN PRN Hypoglycemia Protocol Glucose 15 gm 05/28/24 14:34 Glucose Oral Gel 15 Gm Of Glucse In 37.5 Gm Tube PO PRN PRN Hypoglycemia Protocol Dextrose 1,000 mls @ 100 mls/hr 05/28/24 14:34 Dextrose 5% 1,000 Ml IVPB PRN PRN Hypoglycemia Protocol Piperacillin/Tazobactam/Dextrose 3.375 gm in 50 mls @ 100 mls/hr 05/29/24 14:00 05/30/24 13:37 Zosyn 3.375 Gm/Ns 50 Ml IVPB 100 mls/hr Q6H [facility] Administration Insulin Aspart 5 units 05/28/24 17:00 05/30/24 17:44 Insulin Aspart (*Bkc) 100 Units/Ml SUB-Q Not Given TIDWM [facility] Insulin Aspart 1 - 2 units 05/28/24 21:00 05/29/24 20:34 Insulin Aspart (*Bkc) 100 Units/Ml SUB-Q Not Given HS [facility] Protocol Insulin Aspart 2 - 5 units 05/28/24 17:00 05/30/24 17:37 Insulin Aspart (*Bkc) 100 Units/Ml SUB-Q 2 units TIDWM OSCAR Administration Protocol Insulin Glargine 10 units 05/29/24 09:00 05/30/24 10:13 Insulin Glargine (*Bkc) 100 Units/Ml SUB-Q 10 units DAILY OSCAR Administration Levetiracetam 500 mg 05/30/24 21:00 Levetiracetam 500 Mg Tablet PO Q12HR [facility] Losartan Potassium 25 mg 05/29/24 09:00 05/30/24 10:08 Losartan Potassium 25 Mg Tablet PO 25 mg DAILY OSCAR Administration Magnesium Hydroxide 10 ml 05/29/24 09:00 05/30/24 10:05 Magnesium Hydroxide Susp 30 Ml Udc PO 10 ml DAILY OSCAR Administration Metformin HCl 1,000 mg 05/28/24 17:00 05/30/24 17:33 Metformin Hcl 500 Mg Tablet PO 1,000 mg BID OSCAR Administration Ondansetron HCl 4 mg 05/28/24 14:33 Ondansetron Hcl Odt 4 Mg Tablet PO Q6H PRN nausea and vomiting Pantoprazole Sodium 40 mg 05/29/24 09:00 05/30/24 10:07 Pantoprazole 40 Mg Tablet PO 40 mg QAM [facility]AR Administration Polyethylene Glycol 17 gm 05/29/24 09:00 05/30/24 10:05 Polyethylene Glycol 3350 17 Gm Powd.Pack PO 17 gm DAILY OSCAR Administration Senna 8.6 mg 05/28/24 17:00 05/30/24 17:33 Sennosides 8.6 Mg Tablet PO 8.6 mg BID OSCAR Administration Trolamine Salicylate 1 applic 05/28/24 14:33 Trolamine Salicylate 10% (*Bkc) 113 Gm Cream TOPICAL TID PRN muscle pain Radiology Results: ITS Impressions Abdomen/Pelvis CT 05/28/24 06:21 Impression: Questionable minimal acute diverticulitis at the proximal transverse colon. L1 vertebral body compression fracture, age-indeterminate, likely subacute, new from prior exam. Consider MR to evaluate for marrow edema as indicated. Cholelithiasis/gallbladder sludge. Head CT 05/28/24 06:23 Impression: No intracranial hemorrhage, mass, or acute infarct. Stable right temporal lobe and right frontal lobe encephalomalacia. Atrophy and chronic white matter changes, as above. Chest X-Ray 05/28/24 06:24 Impression: Central congestive change and probable minimal bibasilar pulmonary edema. Carotid Doppler Study 05/29/24 11:02 IMPRESSION: 1. <50% stenosis in the right internal carotid artery. 2. <50% stenosis in the left internal carotid artery. Brain MRI 05/29/24 11:09 IMPRESSION: No acute abnormality. Chronic right temporal lobe infarct with background moderate to advanced chronic microvascular ischemic change. Labs Labs: Laboratory Results - last 24 hr 05/29/24 05/30/24 05/30/24 20:33 06:27 07:41 WBC 6.8 RBC 4.37 Hgb 11.8 L Hct 37.5 MCV 85.8 MCH 27.0 MCHC 31.5 L RDW 14.2 Plt Count 285 MPV 9.7 Sodium 138 Potassium 3.8 Chloride 102 Carbon Dioxide 27 Anion Gap 9 BUN 17 Creatinine 1.02 H Estim Creat Clear Calc 36 Estimated GFR 51 L Glucose 183 H POC Capillary Glucose 195 H 191 H Calcium 6.0 L 05/30/24 05/30/24 11:36 16:19 WBC RBC Hgb Hct MCV MCH MCHC RDW Plt Count MPV Sodium Potassium Chloride Carbon Dioxide Anion Gap BUN Creatinine Estim Creat Clear Calc Estimated GFR Glucose POC Capillary Glucose 259 H 215 H Calcium
[2024-05-30 20:45] LABS: Glucose Point of Care 127 mg/dl (65-105)
[2024-05-30] MEDS: levETIRAcetam 500 MG TABLET PO (20:55)
[2024-05-31] VITALS (10 sets, daily range): BP systolic 103–157; BP diastolic 43–58; PULSE 57–78; RESP 18–20; TEMP 35.7–37; O2SAT 98–99
[2024-05-31] MEDS: PIPERACILLN/TAZ 3.375GM/NS50ML 3.375 GM/50 ML BAG IVPB ×2 (01:35→08:44)
[2024-05-31 07:37] LABS: Hematocrit 39.9 % (37.0-47.0); Hemoglobin 12.1 g/dL (12.0-15.0); Mean Corpuscular HGB Conc 30.3 g/dl (32-36); Mean Corpuscular Hemoglobin 26.7 pg (26-34); Mean Corpuscular Volume 88.1 fl (80-100); Mean Platelet Volume 9.4 fl (7.4-10.4); Platelet Count Result 320 k/mm3 (150-375); Red Blood Count 4.53 M/mm3 (4.2-5.4); Red Cell Distribution Width 14.7 % (11.5-14.5); White Blood Count 8.4 K/mm3 (4.5-10.0)
[2024-05-31 07:45] LABS: Anion Gap 9 mmol/L (4-12); Blood Urea Nitrogen 23 mg/dL (7-17); Calcium 6.4 mg/dL (8.4-10.2); Carbon Dioxide 31 mmol/L (22-30); Chloride 100 mmol/L (98-107); Estimated CRCL calculation 22 ml/min; Estimated Glomerular Filt Rate 29; Glucose 150 mg/dL (65-110); Potassium 4.8 mmol/L (3.4-5.0); Sodium 140 mmol/L (137-145)
[2024-05-31 08:24] LABS: Glucose Point of Care 237 mg/dl (65-105)
[2024-05-31] MEDS: PANTOPRAZOLE 40 MG TABLET PO (08:24)
[2024-05-31] MEDS: FUROSEMIDE 40 MG TABLET PO (08:24)
[2024-05-31] MEDS: ASPIRIN 81 MG CHEWABLE TABLET PO (08:24)
[2024-05-31] MEDS: SENNOSIDES 8.6 MG TABLET PO ×2 (08:24→17:44)
[2024-05-31] MEDS: levETIRAcetam 500 MG TABLET PO ×2 (08:24→21:11)
[2024-05-31] MEDS: metFORMIN HCL 500 MG TABLET 1000 MG PO ×2 (08:24→17:44)
[2024-05-31] MEDS: LOSARTAN POTASSIUM 25 MG TABLET PO (08:25)
[2024-05-31] MEDS: INSULIN GLARGINE (*BKC) 100 UNITS/ML 10 UNITS SUB-Q (08:25)
[2024-05-31] MEDS: INSULIN ASPART (*BKC) 100 UNITS/ML SUB-Q ×5 (08:26→17:51)
[2024-05-31 11:34] LABS: Glucose Point of Care 142 mg/dl (65-105)
--- NOTE | 2024-05-31 12:49 | P.PNIM_ITS ---
Progress Note: A&P Assessment and Plan (1) Dementia with anxiety: Qualifiers: Dementia type: Alzheimer's Alzheimer's disease onset: late onset Dementia severity: moderate Qualified Code(s): G30.1 - Alzheimer's disease with late onset; F02.B4 - Dementia in other diseases classified elsewhere, moderate, with anxiety Code(s): F03.94 - Unspecified dementia, unspecified severity, with anxiety Status: Acute (2) Altered mental status: Code(s): R41.82 - Altered mental status, unspecified Status: Acute (3) 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, unspecified, not intractable, without status epilepticus Status: Acute (4) Diabetes mellitus with diabetic dermatitis: Qualifiers: Diabetes mellitus type: type 2 Diabetes mellitus intermediate project manager insulin use: without intermediate project manager use Qualified Code(s): E11.620 - Type 2 diabetes mellitus with diabetic dermatitis Code(s): E11.620 - Type 2 diabetes mellitus with diabetic dermatitis Status: Acute (5) PVD (peripheral vascular disease): Code(s): I73.9 - Peripheral vascular disease, unspecified Status: Acute Plan This is an 88-year-old female who presents to the ER with altered mental status. Patient has underlying dementia and from a local memory care center. Per EMS patient had rapid eye movement and had seizure-like activity has been nonverbal since the incident. Details not available. On ED evaluation her vitals were stable. Initially was unable to answer questions however was back to her baseline subsequently. Laboratory studies showed WBC of 7.7 hemoglobin 13.2 hematocrit of 42 platelet count of 332 ABG 7.42/37/69/24. Lactic acid high at 3.6. Chem panel with creatinine 1.1. Unremarkable electrolytes. Calcium low at 5.8. Troponin negative. Repeat lactate was 1.7. Vitamin-D 38.8 normal folate normal B12 normal at [address] head with no acute abnormality with stable right temporal lobe and right frontal lobe in encephalomalacia. He is admitted for further treatment. Neurology consulted. EEG pending and MRI brain with no acute abnormality. Chronic right temporal lobe infarct with background moderate to advanced chronic microvascular ischemic change noted. Carotid Doppler with less than 50% christophe nosis right and left internal carotid artery. Chest x-ray with central congestive change and probable minimal bibasilar pulmonary edema. CT abdomen pelvis with questionable minimal acute diverticulitis at proximal transverse colon. L1 vertebral body compression fracture age indeterminate likely subacute new from prior exam. Cholelithiasis/gallbladder sludge. UA negative urine culture growing E coli. Patient asymptomatic. Will hold off on antibiotic however on Zosyn. Urine culture growing E coli pansensitive. 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 This is a chronic problem not able to take calcium supplement at home Continue calcium gluconate. Continue oral calcium supplementation History of parathyroidectomy L1 vertebral body compression fracture age indeterminate no reports of back pain likely subacute. MRI performed pending result This fracture was not present in March 2023 scan. If marrow edema and recent may benefit from TLSO brace. Neurosurgery consultation. TLSO brace when ambulating ordered by Neurosurgery Minimal acute diverticulitis at proximal transverse colon questionable will treat with Zosyn. This will also cover for UTI. Will switch to Augmentin AVRIL creatinine bumped up today to 1.6. Will continue to monitor. Hold diuretics and losartan today. Hypertension Type 2 diabetes on insulin DVT prophylaxis Lovenox CKD stage 3 Code status full code Subjective Date/time seen: 05/31/24 12:49 Interval history: No overnight events. Denies any new complaints. Denies back pain or abdominal pain. No diarrhea. No nausea vomiting. Review of Systems Review of Systems: All systems reviewed & are unremarkable except as noted in HPI and below Exam Narrative: Patient is comfortable, NAD HEENT: eyes are clear and none icteric LUNGS: Bilateral fair entry with rales HEART: RR S1S2 ABD: BS+, Soft and nontender Lower extremities: no edema SKIN: nonjaundiced Neuro: grossly intact. Objective Data Vital Signs Vital Signs: Vital Signs - 24 hr 05/30/24 14:00 05/30/24 16:01 05/30/24 20:00 Temperature 97.9 F Pulse Rate 72 71 74 Respiratory Rate 20 Blood Pressure 117/52 L Pulse Oximetry 97 Oxygen Delivery 05/30/24 21:14 05/31/24 00:00 05/31/24 04:00 Temperature 98.8 F Pulse Rate 78 64 69 Respiratory Rate 18 Blood Pressure 128/50 L Pulse Oximetry 97 Oxygen Delivery 05/31/24 04:46 05/31/24 08:00 05/31/24 08:00 Temperature 98.6 F Pulse Rate 67 57 L Respiratory Rate 18 Blood Pressure 104/58 L Pulse Oximetry 99 Oxygen Delivery Room Air 05/31/24 08:25 05/31/24 12:00 Temperature Pulse Rate 58 L 66 Respiratory Rate Blood Pressure 157/58 H Pulse Oximetry Oxygen Delivery Intake/Output Intake/Output: Intake & Output 05/28/24 05/29/24 05/30/24 05/31/24 23:59 23:59 23:59 23:59 Intake Total 237 1037 1308 50 Output Total 800 1100 250 Balance 237 237 208 -200 Meds/Results Medications: Active Medications Generic Name Dose Route Start Last Admin Trade Name Freq PRN Reason Stop Dose Admin Acetaminophen 650 mg 05/28/24 14:33 Acetaminophen 325 Mg Tablet PO Q4H PRN pain Al Hydrox/Mg Hydrox/Simethicone 20 ml 05/28/24 14:53 Mag Hydrox/Al Hydrox/Simeth 30 Ml Udc PO Q6H PRN Indigestion Amoxicillin/Clavulanate Potassium 1 tablet 05/31/24 21:00 Amoxicillin/Clavulanate K 875-125 Mg Tab PO Q12HR OSCAR Artificial Tears 1 drop 05/28/24 14:59 Artificial Tears Ophth Soln 15 Ml Bottle EACH EYE TID PRN Dry Eye(s) Aspirin 81 mg 05/29/24 09:00 05/31/24 08:24 Aspirin 81 Mg Chewable Tablet PO 81 mg DAILY OSCAR Administration Dextrose 12.5 gm 05/28/24 14:34 Dextrose 50% 25 Gm/50 Ml Syringe IV PUSH PRN PRN Hypoglycemia Protocol Furosemide 40 mg 05/29/24 09:00 05/31/24 08:24 Furosemide 40 Mg Tablet PO 40 mg DAILY OSCAR Administration Glucagon 1 mg 05/28/24 14:34 Glucagon For Inj 1 Mg Vial IM PRN PRN Hypoglycemia Protocol Glucose 15 gm 05/28/24 14:34 Glucose Oral Gel 15 Gm Of Glucse In 37.5 Gm Tube PO PRN PRN Hypoglycemia Protocol Dextrose 1,000 mls @ 100 mls/hr 05/28/24 14:34 Dextrose 5% 1,000 Ml IVPB PRN PRN Hypoglycemia Protocol Insulin Aspart 5 units 05/28/24 17:00 05/31/24 11:46 Insulin Aspart (*Bkc) 100 Units/Ml SUB-Q 5 units TIDWM OSCAR Administration Insulin Aspart 1 - 2 units 05/28/24 21:00 05/30/24 20:55 Insulin Aspart (*Bkc) 100 Units/Ml SUB-Q Not Given HS [facility] Protocol Insulin Aspart 2 - 5 units 05/28/24 17:00 05/31/24 11:42 Insulin Aspart (*Bkc) 100 Units/Ml SUB-Q Not Given TIDWM [facility] Protocol Insulin Glargine 10 units 05/29/24 09:00 05/31/24 08:25 Insulin Glargine (*Bkc) 100 Units/Ml SUB-Q 10 units DAILY OSCAR Administration Levetiracetam 500 mg 05/30/24 21:00 05/31/24 08:24 Levetiracetam 500 Mg Tablet PO 500 mg Q12HR OSCAR Administration Losartan Potassium 25 mg 05/29/24 09:00 05/31/24 08:25 Losartan Potassium 25 Mg Tablet PO 25 mg DAILY OSCAR Administration Magnesium Hydroxide 10 ml 05/29/24 09:00 05/31/24 08:45 Magnesium Hydroxide Susp 30 Ml Udc PO Not Given DAILY OSCAR Metformin HCl 1,000 mg 05/28/24 17:00 05/31/24 08:24 Metformin Hcl 500 Mg Tablet PO 1,000 mg BID OSCAR Administration Ondansetron HCl 4 mg 05/28/24 14:33 Ondansetron Hcl Odt 4 Mg Tablet PO Q6H PRN nausea and vomiting Pantoprazole Sodium 40 mg 05/29/24 09:00 05/31/24 08:24 Pantoprazole 40 Mg Tablet PO 40 mg QAM OSCAR Administration Polyethylene Glycol 17 gm 05/29/24 09:00 05/31/24 08:45 Polyethylene Glycol 3350 17 Gm Powd.Pack PO Not Given DAILY OSCAR Senna 8.6 mg 05/28/24 17:00 05/31/24 08:24 Sennosides 8.6 Mg Tablet PO 8.6 mg BID OSCAR Administration Trolamine Salicylate 1 applic 05/28/24 14:33 Trolamine Salicylate 10% (*Bkc) 113 Gm Cream TOPICAL TID PRN muscle pain Radiology Results: ITS Impressions Abdomen/Pelvis CT 05/28/24 06:21 Impression: Questionable minimal acute diverticulitis at the proximal transverse colon. L1 vertebral body compression fracture, age-indeterminate, likely subacute, new from prior exam. Consider MR to evaluate for marrow edema as indicated. Cholelithiasis/gallbladder sludge. Head CT 05/28/24 06:23 Impression: No intracranial hemorrhage, mass, or acute infarct. Stable right temporal lobe and right frontal lobe encephalomalacia. Atrophy and chronic white matter changes, as above. Chest X-Ray 05/28/24 06:24 Impression: Central congestive change and probable minimal bibasilar pulmonary edema. Carotid Doppler Study 05/29/24 11:02 IMPRESSION: 1. <50% stenosis in the right internal carotid artery. 2. <50% stenosis in the left internal carotid artery. Brain MRI 05/29/24 11:09 IMPRESSION: No acute abnormality. Chronic right temporal lobe infarct with background moderate to advanced chronic microvascular ischemic change. Labs Labs: Laboratory Results - last 24 hr 05/30/24 05/30/24 05/31/24 16:19 19:48 07:27 WBC 8.4 RBC 4.53 Hgb 12.1 Hct 39.9 MCV 88.1 MCH 26.7 MCHC 30.3 L RDW 14.7 H Plt Count 320 MPV 9.4 Sodium 140 Potassium 4.8 Chloride 100 Carbon Dioxide 31 H Anion Gap 9 BUN 23 H Creatinine 1.66 H Estim Creat Clear Calc 22 Estimated GFR 29 L Glucose 150 H POC Capillary Glucose 215 H 127 H Calcium 6.4 L 05/31/24 05/31/24 08:17 11:30 WBC RBC Hgb Hct MCV MCH MCHC RDW Plt Count MPV Sodium Potassium Chloride Carbon Dioxide Anion Gap BUN Creatinine Estim Creat Clear Calc Estimated GFR Glucose POC Capillary Glucose 237 H 142 H Calcium
[2024-05-31 16:12] LABS: Glucose Point of Care 215 mg/dl (65-105)
[2024-05-31] MEDS: AMOXICILLIN/CLAVULANATE K 875-125 MG TAB 1 TABLET PO (21:11)
[2024-05-31 21:28] LABS: Glucose Point of Care 152 mg/dl (65-105)
[2024-06-01] VITALS (10 sets, daily range): BP systolic 117–130; BP diastolic 58–71; PULSE 62–77; RESP 18–20; TEMP 36.4–37.1; O2SAT 97–98
[2024-06-01 06:28] LABS: Hematocrit 42.4 % (37.0-47.0); Hemoglobin 12.8 g/dL (12.0-15.0); Mean Corpuscular HGB Conc 30.2 g/dl (32-36); Mean Corpuscular Hemoglobin 26.7 pg (26-34); Mean Corpuscular Volume 88.5 fl (80-100); Mean Platelet Volume 9.6 fl (7.4-10.4); Platelet Count Result 321 k/mm3 (150-375); Red Blood Count 4.79 M/mm3 (4.2-5.4); Red Cell Distribution Width 14.7 % (11.5-14.5); White Blood Count 8.9 K/mm3 (4.5-10.0)
[2024-06-01 06:44] LABS: Alanine Aminotransferase 18 U/L (6-35); Albumin Level 3.7 g/dL (3.5-5.1); Alkaline Phosphatase 141 U/L (38-126); Anion Gap 9 mmol/L (4-12); Aspartate Amino Transferase 17 U/L (14-36); Bilirubin,Total 0.5 mg/dL (0.2-1.3); Blood Urea Nitrogen 29 mg/dL (7-17); Calcium 6.2 mg/dL (8.4-10.2); Carbon Dioxide 28 mmol/L (22-30); Chloride 102 mmol/L (98-107); Estimated CRCL calculation 23 ml/min; Estimated Glomerular Filt Rate 30; Glucose 143 mg/dL (65-110); Magnesium 2.1 mg/dL (1.6-2.3); Potassium 4.3 mmol/L (3.4-5.0); Sodium 139 mmol/L (137-145)
[2024-06-01 08:23] LABS: Glucose Point of Care 170 mg/dl (65-105)
[2024-06-01 08:28] LABS: Methylmalonic Acid 226 nmol/L (85-423)
[2024-06-01] MEDS: INSULIN ASPART (*BKC) 100 UNITS/ML SUB-Q ×2 (08:38→12:09)
[2024-06-01] MEDS: INSULIN GLARGINE (*BKC) 100 UNITS/ML 10 UNITS SUB-Q (08:39)
[2024-06-01] MEDS: AMOXICILLIN/CLAVULANATE K 875-125 MG TAB 1 TABLET PO ×2 (08:40→21:10)
[2024-06-01] MEDS: levETIRAcetam 500 MG TABLET PO ×2 (08:40→21:10)
[2024-06-01] MEDS: PANTOPRAZOLE 40 MG TABLET PO (08:40)
[2024-06-01] MEDS: SENNOSIDES 8.6 MG TABLET PO ×2 (08:40→16:40)
[2024-06-01] MEDS: ASPIRIN 81 MG CHEWABLE TABLET PO (08:41)
[2024-06-01] MEDS: metFORMIN HCL 500 MG TABLET 1000 MG PO (08:41)
[2024-06-01 12:23] LABS: Glucose Point of Care 178 mg/dl (65-105)
--- NOTE | 2024-06-01 14:30 | P.PNIM_ITS ---
Progress Note: A&P Assessment and Plan (1) Dementia with anxiety: Qualifiers: Dementia type: Alzheimer's Alzheimer's disease onset: late onset Dementia severity: moderate Qualified Code(s): G30.1 - Alzheimer's disease with late onset; F02.B4 - Dementia in other diseases classified elsewhere, moderate, with anxiety Code(s): F03.94 - Unspecified dementia, unspecified severity, with anxiety Status: Acute (2) Altered mental status: Code(s): R41.82 - Altered mental status, unspecified Status: Acute (3) 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, unspecified, not intractable, without status epilepticus Status: Acute (4) Diabetes mellitus with diabetic dermatitis: Qualifiers: Diabetes mellitus type: type 2 Diabetes mellitus 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 Patient has underlying dementia and from a local memory care center. Per EMS patient had rapid eye movement and had seizure-like activity has been nonverbal since the incident. Details not available. On ED evaluation her vitals were stable. Initially was unable to answer questions however was back to her baseline subsequently. Laboratory studies showed WBC of 7.7 hemoglobin 13.2 hematocrit of 42 platelet count of 332 ABG 7.42/37/69/24. Lactic acid high at 3.6. Chem panel with creatinine 1.1. Unremarkable electrolytes. Calcium low at 5.8. Troponin negative. Repeat lactate was 1.7. Vitamin-D 38.8 normal folate normal B12 normal at [address] head with no acute abnormality with stable right temporal lobe and right frontal lobe in encephalomalacia. Chest x-ray with central congestive change and probable minimal bibasilar pulmonary edema. CT abdomen pelvis with questionable minimal acute diverticulitis at proximal transverse colon. L1 vertebral body compression fracture age indeterminate likely subacute new from prior exam. Cholelithiasis/gallbladder sludge. He is admitted for further treatment. Neurology consulted. EEG inconclusive and MRI brain with no acute abnormality. Chronic right temporal lobe infarct with background moderate to advanced chronic microvascular ischemic change noted. Carotid Doppler with less than 50% stenosis right and left internal carotid artery. Since possibility of seizure discussed with neurology and started on Keppra. UA negative urine culture growing E coli. Patient asymptomatic. Will hold off on antibiotic however on Zosyn. Urine culture growing E coli pansensitive. 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 This is a chronic problem not able to take calcium supplement at home Continue calcium gluconate. Continue oral calcium supplementation History of parathyroidectomy L1 vertebral body compression fracture age indeterminate no reports of back pain likely subacute. MRI performed pending result This fracture was not present in March 2023 scan. If marrow edema and recent may benefit from TLSO brace. Neurosurgery consultation. TLSO brace when ambulating ordered by Neurosurgery. Will have PT OT see Minimal acute diverticulitis at proximal transverse colon questionable will treat with Zosyn. This will also cover for UTI. Will switch to Augmentin to finish the course AVRIL creatinine bumped up today to 1.6. Will continue to monitor. Held losartan and diuretic. Creatinine stable today continue to monitor Hypertension Type 2 diabetes on insulin DVT prophylaxis Lovenox CKD stage 3 Code status full code Subjective Date/time seen: 06/01/24 14:30 Interval history: No overnight events. No new complaints. Denies any back pain or abdominal pain. Has not been up yet. Therapy evaluation pending Review of Systems 2 Review of Systems: All systems reviewed & are unremarkable except as noted in HPI and below Exam Narrative: Patient is comfortable, NAD HEENT: eyes are clear and none icteric LUNGS: Bilateral fair entry with rales HEART: RR S1S2 ABD: BS+, Soft and nontender Lower extremities: no edema SKIN: nonjaundiced Neuro: grossly intact. Objective Data Vital Signs Vital Signs: Vital Signs - 24 hr 05/31/24 16:02 05/31/24 20:03 05/31/24 21:13 Temperature Pulse Rate 72 78 Respiratory Rate Blood Pressure Pulse Oximetry Oxygen Delivery Room Air 05/31/24 21:28 06/01/24 00:03 06/01/24 04:03 Temperature 97.6 F Pulse Rate 78 73 62 Respiratory Rate 20 Blood Pressure 104/51 L Pulse Oximetry 98 Oxygen Delivery 06/01/24 06:00 06/01/24 08:00 06/01/24 08:00 Temperature 98.0 F Pulse Rate 68 64 Respiratory Rate 20 Blood Pressure 117/71 Pulse Oximetry 97 Oxygen Delivery Room Air 06/01/24 12:00 06/01/24 13:55 Temperature 97.6 F Pulse Rate 63 66 Respiratory Rate 20 Blood Pressure 130/58 L Pulse Oximetry 98 Oxygen Delivery Intake/Output Intake/Output: Intake & Output 05/29/24 05/30/24 05/31/24 06/01/24 23:59 23:59 23:59 23:59 Intake Total 1037 1308 490 410 Output Total 800 1100 1050 200 Balance 237 208 -560 210 Meds/Results Medications: Active Medications Generic Name Dose Route Start Last Admin Trade Name Freq PRN Reason Stop Dose Admin Acetaminophen 650 mg 05/28/24 14:33 Acetaminophen 325 Mg Tablet PO Q4H PRN pain Al Hydrox/Mg Hydrox/Simethicone 20 ml 05/28/24 14:53 Mag Hydrox/Al Hydrox/Simeth 30 Ml Udc PO Q6H PRN Indigestion Amoxicillin/Clavulanate Potassium 1 tablet 05/31/24 21:00 06/01/24 08:40 Amoxicillin/Clavulanate K 875-125 Mg Tab PO 1 tablet Q12HR OSCAR Administration Artificial Tears 1 drop 05/28/24 14:59 Artificial Tears Ophth Soln 15 Ml Bottle EACH EYE TID PRN Dry Eye(s) Aspirin 81 mg 05/29/24 09:00 06/01/24 08:41 Aspirin 81 Mg Chewable Tablet PO 81 mg DAILY OSCAR Administration Dextrose 12.5 gm 05/28/24 14:34 Dextrose 50% 25 Gm/50 Ml Syringe IV PUSH PRN PRN Hypoglycemia Protocol Furosemide 40 mg 05/29/24 09:00 05/31/24 08:24 Furosemide 40 Mg Tablet PO 40 mg DAILY OSCAR Administration Glucagon 1 mg 05/28/24 14:34 Glucagon For Inj 1 Mg Vial IM PRN PRN Hypoglycemia Protocol Glucose 15 gm 05/28/24 14:34 Glucose Oral Gel 15 Gm Of Glucse In 37.5 Gm Tube PO PRN PRN Hypoglycemia Protocol Dextrose 1,000 mls @ 100 mls/hr 05/28/24 14:34 Dextrose 5% 1,000 Ml IVPB PRN PRN Hypoglycemia Protocol Insulin Aspart 5 units 05/28/24 17:00 06/01/24 12:09 Insulin Aspart (*Bkc) 100 Units/Ml SUB-Q 5 units TIDWM OSCAR Administration Insulin Aspart 1 - 2 units 05/28/24 21:00 05/31/24 21:13 Insulin Aspart (*Bkc) 100 Units/Ml SUB-Q Not Given HS [facility] Protocol Insulin Aspart 2 - 5 units 05/28/24 17:00 06/01/24 12:10 Insulin Aspart (*Bkc) 100 Units/Ml SUB-Q Not Given TIDWM [facility] Protocol Insulin Glargine 10 units 05/29/24 09:00 06/01/24 08:39 Insulin Glargine (*Bkc) 100 Units/Ml SUB-Q 10 units DAILY OSCAR Administration Levetiracetam 500 mg 05/30/24 21:00 06/01/24 08:40 Levetiracetam 500 Mg Tablet PO 500 mg Q12HR OSCAR Administration Losartan Potassium 25 mg 05/29/24 09:00 05/31/24 08:25 Losartan Potassium 25 Mg Tablet PO 25 mg DAILY OSCAR Administration Magnesium Hydroxide 10 ml 05/29/24 09:00 06/01/24 08:41 Magnesium Hydroxide Susp 30 Ml Udc PO Not Given DAILY OSCAR Metformin HCl 1,000 mg 05/28/24 17:00 06/01/24 08:41 Metformin Hcl 500 Mg Tablet PO 1,000 mg BID OSCAR Administration Ondansetron HCl 4 mg 05/28/24 14:33 Ondansetron Hcl Odt 4 Mg Tablet PO Q6H PRN nausea and vomiting Pantoprazole Sodium 40 mg 05/29/24 09:00 06/01/24 08:40 Pantoprazole 40 Mg Tablet PO 40 mg QAM OSCAR Administration Polyethylene Glycol 17 gm 05/29/24 09:00 06/01/24 08:41 Polyethylene Glycol 3350 17 Gm Powd.Pack PO Not Given DAILY OSCAR Senna 8.6 mg 05/28/24 17:00 06/01/24 08:40 Sennosides 8.6 Mg Tablet PO 8.6 mg BID OSCAR Administration Trolamine Salicylate 1 applic 05/28/24 14:33 Trolamine Salicylate 10% (*Bkc) 113 Gm Cream TOPICAL TID PRN muscle pain Radiology Results: ITS Impressions Abdomen/Pelvis CT 05/28/24 06:21 Impression: Questionable minimal acute diverticulitis at the proximal transverse colon. L1 vertebral body compression fracture, age-indeterminate, likely subacute, new from prior exam. Consider MR to evaluate for marrow edema as indicated. Cholelithiasis/gallbladder sludge. Head CT 05/28/24 06:23 Impression: No intracranial hemorrhage, mass, or acute infarct. Stable right temporal lobe and right frontal lobe encephalomalacia. Atrophy and chronic white matter changes, as above. Chest X-Ray 05/28/24 06:24 Impression: Central congestive change and probable minimal bibasilar pulmonary edema. Carotid Doppler Study 05/29/24 11:02 IMPRESSION: 1. <50% stenosis in the right internal carotid artery. 2. <50% stenosis in the left internal carotid artery. Brain MRI 05/29/24 11:09 IMPRESSION: No acute abnormality. Chronic right temporal lobe infarct with background moderate to advanced chronic microvascular ischemic change. Lumbar Spine MRI 05/31/24 17:04 IMPRESSION: 1. L1 burst fracture, likely subacute. 2. Severe lumbar spondylosis. Labs Labs: Laboratory Results - last 24 hr 05/28/24 05/31/24 05/31/24 13:06 16:08 20:52 WBC RBC Hgb Hct MCV MCH MCHC RDW Plt Count MPV Sodium Potassium Chloride Carbon Dioxide Anion Gap BUN Creatinine Estim Creat Clear Calc Estimated GFR Glucose POC Capillary Glucose 215 H 152 H Calcium Magnesium Total Bilirubin AST ALT Alkaline Phosphatase Total Protein Albumin Methylmalonic Acid 226 06/01/24 06/01/24 06/01/24 06:14 08:19 12:08 WBC 8.9 RBC 4.79 Hgb 12.8 Hct 42.4 MCV 88.5 MCH 26.7 MCHC 30.2 L RDW 14.7 H Plt Count 321 MPV 9.6 Sodium 139 Potassium 4.3 Chloride 102 Carbon Dioxide 28 Anion Gap 9 BUN 29 H Creatinine 1.62 H Estim Creat Clear Calc 23 Estimated GFR 30 L Glucose 143 H POC Capillary Glucose 170 H 178 H Calcium 6.2 L Magnesium 2.1 Total Bilirubin 0.5 AST 17 ALT 18 Alkaline Phosphatase 141 H Total Protein 7.0 Albumin 3.7 Methylmalonic Acid
[2024-06-01 16:09] LABS: Vitamin B1 6 nmol/L (8-30)
[2024-06-01] MEDS: THIAMINE HCL 100 MG TABLET PO (16:40)
[2024-06-01 16:51] LABS: Glucose Point of Care 56 mg/dl (65-105)
[2024-06-01 17:21] LABS: Glucose Point of Care 106 mg/dl (65-105)
[2024-06-01 21:03] LABS: Glucose Point of Care 197 mg/dl (65-105)
[2024-06-02 00:03] VITALS: PULSE 67
[2024-06-02 04:02] VITALS: PULSE 60
[2024-06-02 05:34] VITALS: BP 118/56; PULSE 69; RESP 16; TEMP 37; O2SAT 98
[2024-06-02 06:18] LABS: Basophils Absolute Auto 0.1 K/mm3 (0.0-0.1); Basophils Percent Auto 0.9 % (0.2-1.2); Eosinophils Absolute Auto 0.2 K/mm3 (0-0.3); Eosinophils Percent Auto 1.8 % (0-4.4); Hematocrit 40.1 % (37.0-47.0); Hemoglobin 12.5 g/dL (12.0-15.0); Immature Granulocyte Absolute 0.06 K/mm3 (0.00-0.031); Immature Granulocyte Percent A 0.6 % (0-0.5); Lymphocytes Absolute Auto 1.03 K/mm3 (0.9-3.2); Lymphocytes Percent Auto 10.7 % (18.3-44.2); Mean Corpuscular HGB Conc 31.2 g/dl (32-36); Mean Corpuscular Hemoglobin 27.1 pg (26-34); Mean Corpuscular Volume 86.8 fl (80-100); Mean Platelet Volume 9.6 fl (7.4-10.4); Monocytes Absolute Auto 0.8 K/mm3 (0.1-0.6); Monocytes Percent Auto 8.2 % (2.6-8.5); Neutrophils Absolute Auto 7.5 K/mm3 (1.3-6.7); Neutrophils Percent Auto 77.8 % (45.5-73.1); Platelet Count Result 308 k/mm3 (150-375); Red Blood Count 4.62 M/mm3 (4.2-5.4); Red Cell Distribution Width 14.7 % (11.5-14.5); White Blood Count 9.6 K/mm3 (4.5-10.0)
[2024-06-02 06:31] LABS: Alanine Aminotransferase 17 U/L (6-35); Albumin Level 3.6 g/dL (3.5-5.1); Alkaline Phosphatase 129 U/L (38-126); Anion Gap 9 mmol/L (4-12); Aspartate Amino Transferase 16 U/L (14-36); Bilirubin,Total 0.7 mg/dL (0.2-1.3); Blood Urea Nitrogen 30 mg/dL (7-17); Calcium 6.1 mg/dL (8.4-10.2); Carbon Dioxide 29 mmol/L (22-30); Chloride 101 mmol/L (98-107); Estimated CRCL calculation 30 ml/min; Estimated Glomerular Filt Rate 42; Glucose 173 mg/dL (65-110); Potassium 4.2 mmol/L (3.4-5.0); Sodium 139 mmol/L (137-145)
[2024-06-02 07:55] LABS: Glucose Point of Care 175 mg/dl (65-105)
[2024-06-02 08:00] VITALS: PULSE 61
[2024-06-02] MEDS: polyethylene glycoL 3350 17 GM POWD.PACK PO (08:47)
[2024-06-02] MEDS: ASPIRIN 81 MG CHEWABLE TABLET PO (08:47)
[2024-06-02] MEDS: levETIRAcetam 500 MG TABLET PO (08:47)
[2024-06-02] MEDS: THIAMINE HCL 100 MG TABLET PO (08:47)
[2024-06-02] MEDS: SENNOSIDES 8.6 MG TABLET PO (08:47)
[2024-06-02] MEDS: MAGNESIUM HYDROXIDE SUSP 30 ML UDC 10 ML PO (08:47)
[2024-06-02] MEDS: PANTOPRAZOLE 40 MG TABLET PO (08:47)
[2024-06-02] MEDS: metFORMIN HCL 500 MG TABLET 1000 MG PO (08:47)
[2024-06-02] MEDS: AMOXICILLIN/CLAVULANATE K 875-125 MG TAB 1 TABLET PO (08:47)
[2024-06-02] MEDS: INSULIN ASPART (*BKC) 100 UNITS/ML SUB-Q ×2 (09:04→12:39)
[2024-06-02] MEDS: INSULIN GLARGINE (*BKC) 100 UNITS/ML 10 UNITS SUB-Q (09:05)
--- NOTE | 2024-06-02 11:07 | PCPTNOTE ---
Addendum entered by Nereyda Collins DPT 06/02/24 11:09: RN aware. Original Note: Attempted evaluation 1105, patient drowsy and not participating any sort of active movement. Will follow.
[2024-06-02 11:35] LABS: Glucose Point of Care 149 mg/dl (65-105)
[2024-06-02 12:00] VITALS: PULSE 69
[2024-06-02 14:00] VITALS: BP 105/46; PULSE 74; RESP 14; TEMP 36.5; O2SAT 97
--- NOTE | 2024-06-02 14:13 | PM.DS ---
DS: Admitting Diagnosis Discharge Date 06/02/2024 Admitting Diagnosis Altered mental status/seizure DS: Discharge Diagnosis Discharge Diagnosis (1) Dementia with anxiety: Qualifiers: Dementia type: Alzheimer's Alzheimer's disease onset: late onset Dementia severity: moderate Qualified Code(s): G30.1 - Alzheimer's disease with late onset; F02.B4 - Dementia in other diseases classified elsewhere, moderate, with anxiety Code(s): F03.94 - Unspecified dementia, unspecified severity, with anxiety Status: Acute (2) Altered mental status: Code(s): R41.82 - Altered mental status, unspecified Status: Acute (3) 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, unspecified, not intractable, without status epilepticus Status: Acute (4) Diabetes mellitus with diabetic dermatitis: Qualifiers: Diabetes mellitus type: type 2 Diabetes mellitus biomass facilitator insulin use: without biomass facilitator use Qualified Code(s): E11.620 - Type 2 diabetes mellitus with diabetic dermatitis Code(s): E11.620 - Type 2 diabetes mellitus with diabetic dermatitis Status: Acute (5) PVD (peripheral vascular disease): Code(s): I73.9 - Peripheral vascular disease, unspecified Status: Acute DS: Summary Hospital Course Hospital Course: This is an 88-year-old female who presents to the ER with altered mental status. Patient has underlying dementia and from a local memory care center. Per EMS patient had rapid eye movement and had seizure-like activity has been nonverbal since the incident. Details not available. On ED evaluation her vitals were stable. Initially was unable to answer questions however was back to her baseline subsequently. Laboratory studies showed WBC of 7.7 hemoglobin 13.2 hematocrit of 42 platelet count of 332 ABG 7.42/37/69/24. Lactic acid high at 3.6. Chem panel with creatinine 1.1. Unremarkable electrolytes. Calcium low at 5.8. Troponin negative. Repeat lactate was 1.7. Vitamin-D 38.8 normal folate normal B12 normal at [address] head with no acute abnormality with stable right temporal lobe and right frontal lobe in encephalomalacia. Chest x-ray with central congestive change and probable minimal bibasilar pulmonary edema. CT abdomen pelvis with questionable minimal acute diverticulitis at proximal transverse colon. L1 vertebral body compression fracture age indeterminate likely subacute new from prior exam. Cholelithiasis/gallbladder sludge. He is admitted for further treatment. Neurology consulted. EEG inconclusive and MRI brain with no acute abnormality. Chronic right temporal lobe infarct with background moderate to advanced chronic microvascular ischemic change noted. Carotid Doppler with less than 50% stenosis right and left internal carotid artery. Since possibility of seizure discussed with neurology and started on Keppra. Continue Keppra at discharge UA negative urine culture growing E coli. Patient asymptomatic. Will hold off on antibiotic however on Zosyn. Urine culture growing E coli pansensitive. Will switch to Augmentin to cover for UTI as well as possible diverticulitis. 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 This is a chronic problem not able to take calcium supplement at home Continue calcium gluconate. Continue oral calcium supplementation History of parathyroidectomy L1 vertebral body compression fracture age indeterminate no reports of back pain likely subacute. MRI performed and reported subacute L1 burst fracture. This fracture was not present in March 2023 scan. TLSO brace has been fitted and she will use when ambulating. Neurosurgery consultation. Follow-up with neurosurgery as an outpatient basis. TLSO brace when ambulating ordered by Neurosurgery. PT OT evaluated the patient during the hospital stay. Minimal acute diverticulitis at proximal transverse colon questionable will treat with Zosyn. This will also cover for UTI. Will switch to Augmentin to finish the 7 days course AVRIL creatinine bumped up today to 1.6. Will continue to monitor. Held losartan and diuretic. Creatinine stable and improved by the time of discharge. Continue to monitor. Will resume losartan however will stop Lasix. Hypertension Type 2 diabetes on insulin DVT prophylaxis Lovenox CKD stage 3 Code status full code Time Spent with Patient Time attestation: Total time spent providing and/or coordinating discharge services: 40 minutes Exam Narrative: Patient is comfortable, NAD HEENT: eyes are clear and none icteric LUNGS: Bilateral fair entry with rales HEART: RR S1S2 ABD: BS+, Soft and nontender Lower extremities: no edema SKIN: nonjaundiced Neuro: grossly intact. DS: Data Data Completed and Pending Labs on day of discharge: Labs from last 24 hours 06/02/24 06/02/24 06/02/24 11:23 07:39 06:04 WBC 9.6 RBC 4.62 Hgb 12.5 Hct 40.1 MCV 86.8 MCH 27.1 MCHC 31.2 L RDW 14.7 H Plt Count 308 MPV 9.6 Immature Gran % (Auto) 0.6 H Neut % (Auto) 77.8 H Lymph % (Auto) 10.7 L [place] % (Auto) 8.2 Eos % (Auto) 1.8 Baso % (Auto) 0.9 Lymph # (Auto) 1.03 [place] # (Auto) 0.8 H Eos # (Auto) 0.2 Baso # (Auto) 0.1 Abs Immat Gran (auto) 0.06 H Absolute Neuts (auto) 7.5 H Absolute Nucleated RBC 0.000 Nucleated RBC % 0.0 Sodium 139 Potassium 4.2 Chloride 101 Carbon Dioxide 29 Anion Gap 9 BUN 30 H Creatinine 1.22 H Estim Creat Clear Calc 30 Estimated GFR 42 L Glucose 173 H POC Capillary Glucose 149 H 175 H Calcium 6.1 L Magnesium 2.0 Total Bilirubin 0.7 AST 16 ALT 17 Alkaline Phosphatase 129 H Total Protein 7.0 Albumin 3.6 Vitamin B1 06/01/24 06/01/24 06/01/24 20:44 17:11 16:43 WBC RBC Hgb Hct MCV MCH MCHC RDW Plt Count MPV Immature Gran % (Auto) Neut % (Auto) Lymph % (Auto) [place] % (Auto) Eos % (Auto) Baso % (Auto) Lymph # (Auto) [place] # (Auto) Eos # (Auto) Baso # (Auto) Abs Immat Gran (auto) Absolute Neuts (auto) Absolute Nucleated RBC Nucleated RBC % Sodium Potassium Chloride Carbon Dioxide Anion Gap BUN Creatinine Estim Creat Clear Calc Estimated GFR Glucose POC Capillary Glucose 197 H 106 H 56 L* Calcium Magnesium Total Bilirubin AST ALT Alkaline Phosphatase Total Protein Albumin Vitamin B1 05/28/24 13:06 WBC RBC Hgb Hct MCV MCH MCHC RDW Plt Count MPV Immature Gran % (Auto) Neut % (Auto) Lymph % (Auto) [place] % (Auto) Eos % (Auto) Baso % (Auto) Lymph # (Auto) [place] # (Auto) Eos # (Auto) Baso # (Auto) Abs Immat Gran (auto) Absolute Neuts (auto) Absolute Nucleated RBC Nucleated RBC % Sodium Potassium Chloride Carbon Dioxide Anion Gap BUN Creatinine Estim Creat Clear Calc Estimated GFR Glucose POC Capillary Glucose Calcium Magnesium Total Bilirubin AST ALT Alkaline Phosphatase Total Protein Albumin Vitamin B1 6 L Imaging Radiologist's impression: ITS Impressions Abdomen/Pelvis CT 05/28/24 06:21 Impression: Questionable minimal acute diverticulitis at the proximal transverse colon. L1 vertebral body compression fracture, age-indeterminate, likely subacute, new from prior exam. Consider MR to evaluate for marrow edema as indicated. Cholelithiasis/gallbladder sludge. Head CT 05/28/24 06:23 Impression: No intracranial hemorrhage, mass, or acute infarct. Stable right temporal lobe and right frontal lobe encephalomalacia. Atrophy and chronic white matter changes, as above. Chest X-Ray 05/28/24 06:24 Impression: Central congestive change and probable minimal bibasilar pulmonary edema. Carotid Doppler Study 05/29/24 11:02 IMPRESSION: 1. <50% stenosis in the right internal carotid artery. 2. <50% stenosis in the left internal carotid artery. Brain MRI 05/29/24 11:09 IMPRESSION: No acute abnormality. Chronic right temporal lobe infarct with background moderate to advanced chronic microvascular ischemic change. Lumbar Spine MRI 05/31/24 17:04 IMPRESSION: 1. L1 burst fracture, likely subacute. 2. Severe lumbar spondylosis. Discharge Plan Discharge Attending physician on discharge: Surya Jacques Consulting providers: [place] Agrawal; Krystal Choudhary Discharging Clinician: Surya Jacques Anticipated Discharge Date/Time: 06/02/24 14:16 Patient Disposition: NH Group Home/Asst Living Activity: as tolerated Diet: heart healthy and diabetic Patient Instructions: Antibiotic Form Patient Language: Ethiopian Stand Alone Forms: General Discharge Information Follow-up/Referrals: Adeola,Clive Fish DO [Primary Care Provider] - 1 Week Venice Agrawal MD [Physician] - 4 Weeks Krystal Choudhary MD [Physician] - 4 Weeks Discharge Medications: New levetiracetam [Keppra] 500 mg Tablet 500 mg PO Q12HR Qty: 60 0RF thiamine HCl (vitamin B1) [Vitamin B-1] 100 mg Tablet 100 mg PO QAM Qty: 30 0RF amoxicillin-pot clavulanate [Augmentin] 500-125 mg tablet 1 tablet PO Q12H Qty: 6 0RF Continued aspirin 81 mg tablet,chewable 81 mg PO DAILY glucagon HCl [Glucagon (HCl) Emergency Kit] 1 mg recon soln 1 mg subcut ONCE insulin lispro [Humalog Karsten KwikPen U-100] 100 unit/mL insulin pen, half-unit 5 unit subcut .COMPLEX Rx Instructions: 5 units subcutaneously with meals; insulin lispro [Humalog Karsten KwikPen U-100] 100 unit/mL insulin pen, half-unit 1 sliding scale dose subcut USEASDIRECTD insulin glargine [Lantus Solostar U-100 Insulin] 100 unit/mL (3 mL) insulin pen 10 unit subcut DAILY insulin glargine [Lantus U-100 Insulin] 100 unit/mL solution 10 unit subcut DAILY losartan 25 mg tablet 25 mg PO DAILY alum-mag hydroxide-simeth [Maalox Maximum Strength] 400-400-40 mg/5 mL suspension 10 ml PO Q6H PRN (Reason: indigestion) metformin 1,000 mg tablet 1,000 mg PO BID magnesium hydroxide [Milk of Magnesia] 400 mg/5 mL suspension 10 ml PO DAILY omeprazole 20 mg tablet,delayed release (DR/EC) 20 mg PO DAILY ondansetron 4 mg tablet,disintegrating 4 mg PO Q6H PRN (Reason: nausea and vomiting) trolamine salicylate [Pain Relief (trolamine salicy)] 10 % cream 1 applic topical TID PRN (Reason: muscle pain) senna 8.6 mg capsule 8.6 mg PO BID acetaminophen [Tylenol] 325 mg tablet 650 mg PO Q4H PRN (Reason: pain) polyethylene glycol 3350 [Miralax] 17 gram powder in packet 17 g PO DAILY Systane (PF) 0.4-0.3 % dropperette 1 drp EACH EYE TID PRN (Reason: dry eye(s)) Discontinued furosemide [Lasix] 40 mg tablet 40 mg PO DAILY Date of admission: 05/28/24 11:40 Primary Care Provider: Adeola,Clive Fish Admitting Provider: Elkin Arroyo Attending physician on admission: Elkin Arroyo Condition: Stable
[2024-06-02 17:07] LABS: Glucose Point of Care 66 mg/dl (65-105)
[2024-06-02 17:25] LABS: Glucose Point of Care 91 mg/dl (65-105)
== END 2024-06-02 17:30 | DRG 101 ==
LOC: ANHED 06:38 → ANH3MEDSUR 08:41
PROVIDERS: Family Medicine; Psychiatry & Neurology Neurology; Admitting Provider Hospitalist; Emergency Provider Emergency Medicine; PCP Internal Medicine; Visit Provider Internal Medicine
DX: R56.9 Unspecified convulsions (principal); F02.B4 Dementia in other diseases classified elsewhere, moderate, with anxiety; K57.32 Diverticulitis of large intestine without perforation or abscess without bleeding; N39.0 Urinary tract infection, site not specified; S32.011A Stable burst fracture of first lumbar vertebra, initial encounter for closed fracture; I12.9 Hypertensive chronic kidney disease with stage 1 through stage 4 chronic kidney disease, or unspecified chronic kidney disease; N18.30 Chronic kidney disease, stage 3 unspecified; E11.22 Type 2 diabetes mellitus with diabetic chronic kidney disease; E11.51 Type 2 diabetes mellitus with diabetic peripheral angiopathy without gangrene; E83.51 Hypocalcemia; K80.20 Calculus of gallbladder without cholecystitis without obstruction; G30.9 Alzheimer's disease, unspecified; Z20.822 Contact with and (suspected) exposure to COVID-19; Z86.73 Personal history of transient ischemic attack (TIA), and cerebral infarction without residual deficits; Z79.82 Long term (current) use of aspirin; Z79.4 Long term (current) use of insulin
CPT/HCPCS: 36415; 36600; 70450; 70553; 71045; 72148; 74176; 80048; 80053; 81001; 82306; 82607; 82746; 82805; 82948; 83605; 83690; 83735; 83880; 83921; 84145; 84425; 84443; 84484; 85018; 85025; 85027; 85610; 85730; 87086; 87186; 87637; 93005; 93880; 95816; 97166; A9270; A9579; G0378; J0612; J0613; J1815; J2543

== ENCOUNTER 2024-06-15 14:03 | Inpatient (IN) | payer OTHER, SELFPAY ==
[2024-06-15] VITALS (8 sets, daily range): BP systolic 87–144; BP diastolic 57–82; PULSE 63–87; RESP 16–27; TEMP 36.1–36.6; O2SAT 97–100
--- NOTE | ~2024-06-15 | XR_ITS ---
EXAMINATION: XR lumbar spine 2-3V DATE: 06/16/2024 16:48 INDICATION: L1 burst fracture TECHNIQUE: Anteroposterior and lateral views of the lumbar spine were obtained. COMPARISON: Lumbar spine MR dated 05/30/2024 FINDINGS: 13 degrees thoracolumbar levoscoliosis and 10 degrees lower lumbar dextrocurvature. Sagittal alignmen t is normal. No significant interval change in approximately 20% central to anterior vertebral body h eight loss such with the previously noted L1 burst fracture. Remaining vertebral body heights are nor mal. There is severe disc height loss at L4-L5 and mild disc height loss at L3-L4 and L5-S1. There is slight widening of the disc spaces at T12-L1 and L1-L2 on either side of the burst fracture. Severe right and moderate left sacroiliac osteoarthritis. Mild bilateral hip osteoarthritis. There are a few surgical clips projecting along the right anterior margin of L1-L3. IMPRESSION: 1. L1 burst fracture with no change in 20% anterior to central vertebral body height loss. 2. Mild S-shaped scoliosis of the lumbar and lower thoracic spine with severe lower lumbar spondylosi s. Reviewed, dictated and finalized at location B. IMPRESSION: 1. L1 burst fracture with no change in 20% anterior to central vertebral body h eight loss. 2. Mild S-shaped scoliosis of the lumbar and lower thoracic spine with severe l ower lumbar spondylosis.
--- NOTE | 2024-06-15 15:27 | ED_ITS ---
HPI - General Adult General Chief complaint: GI Bleed <Thania Sosa PA-C - Last Filed: 06/15/24 19:04> Stated complaint: Blood in stool-[place], A/O x 2 <Thania Sosa PA-C - Last Filed: 06/15/24 19:04> Time Seen by Provider: 06/15/24 15:28 <Thania Sosa PA-C - Last Filed: 06/15/24 19:04> This is a 88 year old female that presents to the ER blood in stool. Reports she had a bowel movement at her facility which contained blood. Facility sent her in for further evaluation. No previous history of GI bleeding. She takes Aspirin daily. <Thania Sosa PA-C - Last Filed: 06/15/24 19:04> Source: other (patient's caregiver) <Thania Sosa PA-C - Last Filed: 06/15/24 19:04> Mode of arrival: wheelchair <Thania Sosa PA-C - Last Filed: 06/15/24 19:04> Limitations: dementia <Thania Sosa PA-C - Last Filed: 06/15/24 19:04> History of Present Illness HPI narrative: Agree with HPI. Recent hospitalization here. <Bernard Avelar MD - Last Filed: 06/15/24 18:47> Related Data Home medications: Home Medications ?Medication ?Instructions ?Recorded ?Confirmed ?Last Taken ?Type acetaminophen 325 mg tablet 650 mg PO Q4H PRN pain 05/28/24 06/09/24 Unknown History (Tylenol) aluminum-mag hydroxide-simethicone 10 ml PO Q6H PRN indigestion 05/28/24 06/09/24 Unknown History 400 mg-400 mg-40 mg/5 mL oral susp (Maalox Maximum Strength) aspirin 81 mg chewable tablet 81 mg PO DAILY 05/28/24 06/09/24 Unknown History glucagon HCl 1 mg solution for 1 mg subcut ONCE 05/28/24 06/09/24 Unknown History injection (Glucagon (HCl) Emergency Kit) insulin glargine 100 unit/mL (3 10 unit subcut DAILY 05/28/24 06/09/24 Unknown History mL) subcutaneous pen (Lantus Solostar U-100 Insulin) insulin glargine 100 unit/mL 10 unit subcut DAILY 05/28/24 06/09/24 Unknown History subcutaneous solution (Lantus U-100 Insulin) insulin lispro 100 unit/mL 1 sliding scale dose subcut 05/28/24 06/09/24 Unknown History subcutaneous half-unit pen USEASDIRECTD (Humalog Karsten KwikPen (U-100)) insulin lispro 100 unit/mL 5 unit subcut .COMPLEX 05/28/24 06/09/24 Unknown History subcutaneous half-unit pen (Humalog Karsten KwikPen (U-100)) losartan 25 mg tablet 25 mg PO DAILY 05/28/24 06/09/24 Unknown History magnesium hydroxide 400 mg/5 mL 10 ml PO DAILY 05/28/24 06/09/24 Unknown History oral suspension (Milk of Magnesia) metformin 1,000 mg tablet 1,000 mg PO BID 05/28/24 06/09/24 Unknown History omeprazole 20 mg tablet,delayed 20 mg PO DAILY 05/28/24 06/09/24 Unknown History release ondansetron 4 mg disintegrating 4 mg PO Q6H PRN nausea and vomiting 05/28/24 06/09/24 Unknown History tablet peg 400-propylene glycol (PF) 0.4 1 drp EACH EYE TID PRN dry eye(s) 05/28/24 06/09/24 Unknown History %-0.3 % eye drops in a dropperette (Systane (PF)) polyethylene glycol 3350 17 gram 17 g PO DAILY 05/28/24 06/09/24 05/27/24 08:45 History oral powder packet (Miralax) sennosides 8.6 mg capsule (senna) 8.6 mg PO BID 05/28/24 06/09/24 Unknown History trolamine salicylate 10 % topical 1 applic topical TID PRN muscle 05/28/24 06/09/24 Unknown History cream (Pain Relief (trolamine pain salicylate)) <Thania Sosa PA-C - Last Filed: 06/15/24 19:04> Allergies/adverse reactions: Allergies Allergy/AdvReac Type Severity Reaction Status Date / Time bromocriptine (From Cycloset) Allergy Unknown Verified 06/09/24 15:41 ciprofloxacin (From Cipro) Allergy Other Verified 06/09/24 15:41 levofloxacin Allergy Other Verified 06/09/24 15:41 morphine Allergy Unknown Verified 06/09/24 15:41 Penicillins Allergy Other Verified 06/09/24 15:41 Quinolones Allergy Hives Verified 06/09/24 15:41 [id number]-[id number]-[id number] Reductase Allergy Unknown Verified 06/09/24 15:41 Inhibitor Sulfa (Sulfonamide Allergy Other Verified 06/09/24 15:41 Antibiotics) tetracycline Allergy Unknown Verified 06/09/24 15:41 warfarin Allergy Unknown Verified 06/09/24 15:41 cefuroxime AdvReac Mild Rash Verified 06/09/24 15:41 clindamycin AdvReac Hives Verified 06/09/24 15:41 <Thania Sosa PA-C - Last Filed: 06/15/24 19:04> Review of Systems 2 Review of Systems: ROS unobtainable: Yes unobtainable due to mental status <Bernard Avelar MD - Last Filed: 06/15/24 18:47> PMFSH Past Medical History Medical History: Medical History (Updated 06/15/24 @ 18:45 by Bernard Avelar MD) Alzheimer's dementia with anxiety Seizure cerebral CKD stage 3 due to type 2 diabetes mellitus Cholelithiasis Diabetes mellitus with diabetic dermatitis PVD (peripheral vascular disease) Benign essential HTN Cerebrovascular disease <Thania Sosa PA-C - Last Filed: 06/15/24 19:04> Social History Social History: Social History Smoking status: Never smoker Alcohol intake: never Substance use: never Do You Feel Safe in your Home?: Yes Lack of Transportation: No Lack of Food: Never True Current Housing: I Have Housing Concerned About Future Housing: No Difficulty Paying Gas/Electric Bills: No Difficulty Paying for Meds: No Currently Unemployed: No Education: Master's Degree or Higher Difficulty w/ Childcare or Family Care: No Spiritual care concerns: No <Thania Sosa PA-C - Last Filed: 06/15/24 19:04> Exam 2 Narrative: GENERAL: Well-appearing, well-nourished, and in no acute distress. HEAD: Normocephalic, atraumatic. ENT: Mucous membranes moist. CHEST: Clear to auscultation. No respiratory distress. HEART: Regular rate and rhythm. Normal peripheral pulses. ABDOMEN: Soft, nontender, nondistended. Maroon stool that is soft but not liquid on digital rectal exam. No external hemorrhoids. EXTREMITIES: Normal range of motion. No edema. SKIN: Warm, dry, no rash. NEURO: Alert and oriented x3. PSYCH: Normal mood and affect. <Bernard Avelar MD - Last Filed: 06/15/24 18:47> Course Course Emergency Course: Patient caregiver informed of diagnosis and treatment plan. GI consulted. Admit to hospitalist service. B.i.d. PPI, clear liquids, NPO at midnight. < Bernard Avelar MD - Last Filed: 06/15/24 18:47> Vital Signs Vital signs: Vital Signs Temperature 97.9 F 06/15/24 14:34 Pulse Rate 76 06/15/24 14:34 Respiratory Rate 16 06/15/24 14:34 Blood Pressure 134/60 06/15/24 14:34 Pulse Oximetry 99 06/15/24 14:34 Oxygen Delivery Room Air 06/15/24 14:34 Temperature 97.9 F 06/15/24 14:34 Pulse Rate 77 06/15/24 16:54 Respiratory Rate 18 06/15/24 16:54 Blood Pressure 125/57 L 06/15/24 16:54 Pulse Oximetry 99 06/15/24 16:54 Oxygen Delivery Room Air 06/15/24 16:54 <Thania Sosa PA-C - Last Filed: 06/15/24 19:04> Vital Signs Temperature 97.9 F 06/15/24 14:34 Pulse Rate 76 06/15/24 14:34 Respiratory Rate 16 06/15/24 14:34 Blood Pressure 134/60 06/15/24 14:34 Pulse Oximetry 99 06/15/24 14:34 Oxygen Delivery Room Air 06/15/24 14:34 Temperature 97.9 F 06/15/24 14:34 Pulse Rate 77 06/15/24 16:54 Respiratory Rate 18 06/15/24 16:54 Blood Pressure 125/57 L 06/15/24 16:54 Pulse Oximetry 99 06/15/24 16:54 Oxygen Delivery Room Air 06/15/24 16:54 <Bernard Avelar MD - Last Filed: 06/15/24 18:47> Medical Decision Making Vital Signs Vital Signs: Vital Signs Temperature 97.9 F 06/15/24 14:34 Pulse Rate 76 06/15/24 14:34 Respiratory Rate 16 06/15/24 14:34 Blood Pressure 134/60 06/15/24 14:34 Pulse Oximetry 99 06/15/24 14:34 Oxygen Delivery Room Air 06/15/24 14:34 Temperature 97.9 F 06/15/24 14:34 Pulse Rate 77 06/15/24 16:54 Respiratory Rate 18 06/15/24 16:54 Blood Pressure 125/57 L 06/15/24 16:54 Pulse Oximetry 99 06/15/24 16:54 Oxygen Delivery Room Air 06/15/24 16:54 <Thania Sosa PA-C - Last Filed: 06/15/24 19:04> Vital Signs Temperature 97.9 F 06/15/24 14:34 Pulse Rate 76 06/15/24 14:34 Respiratory Rate 16 06/15/24 14:34 Blood Pressure 134/60 06/15/24 14:34 Pulse Oximetry 99 06/15/24 14:34 Oxygen Delivery Room Air 06/15/24 14:34 Temperature 97.9 F 06/15/24 14:34 Pulse Rate 77 06/15/24 16:54 Respiratory Rate 18 06/15/24 16:54 Blood Pressure 125/57 L 06/15/24 16:54 Pulse Oximetry 99 06/15/24 16:54 Oxygen Delivery Room Air 06/15/24 16:54 <Bernard Avelar MD - Last Filed: 06/15/24 18:47> Lab Data Result diagrams: 06/15/24 16:52 06/15/24 16:52 <Thania Sosa PA-C - Last Filed: 06/15/24 19:04> Labs: Lab Results 06/15/24 Range/Units 16:52 WBC 10.2 H (4.5-10.0) K/mm3 RBC 4.32 (4.2-5.4) M/mm3 Hgb 11.6 L (12.0-15.0) g/dL Hct 37.2 (37.0-47.0) % MCV 86.1 (80-100) fl MCH 26.9 (26-34) pg MCHC 31.2 L (32-36) g/dl RDW 15.2 H (11.5-14.5) % Plt Count 364 (150-375) k/mm3 MPV 9.4 (7.4-10.4) fl Immature Gran % (Auto) 1.1 H (0-0.5) % Neut % (Auto) 74.6 H (45.5-73.1) % Lymph % (Auto) 15.0 L (18.3-44.2) % [place] % (Auto) 7.1 (2.6-8.5) % Eos % (Auto) 1.5 (0-4.4) % Baso % (Auto) 0.7 (0.2-1.2) % Lymph # (Auto) 1.53 (0.9-3.2) K/mm3 [place] # (Auto) 0.7 H (0.1-0.6) K/mm3 Eos # (Auto) 0.2 (0-0.3) K/mm3 Baso # (Auto) 0.1 (0.0-0.1) K/mm3 Abs Immat Gran (auto) 0.11 H (0.00-0.031) K/mm3 Absolute Neuts (auto) 7.6 H (1.3-6.7) K/mm3 Absolute Nucleated RBC 0.000 (0.0-0.012) K/mm3 Nucleated RBC % 0.0 (0.0-0.2) % PT 14.3 (11.1-14.7) Seconds INR 1.1 APTT 25.8 (22.3-36.8) Seconds Sodium 136 L (137-145) mmol/L Potassium 4.6 (3.4-5.0) mmol/L Chloride 101 (98-107) mmol/L Carbon Dioxide 23 (22-30) mmol/L Anion Gap 12 (4-12) mmol/L BUN 24 H (7-17) mg/dL Creatinine 0.95 (0.7-1.0) mg/dL Estim Creat Clear Calc 39 ml/min Estimated GFR 56 L (59 - ) Glucose 212 H (65-110) mg/dL Calcium 6.6 L (8.4-10.2) mg/dL Total Bilirubin 0.2 (0.2-1.3) mg/dL AST 16 (14-36) U/L ALT 21 (6-35) U/L Alkaline Phosphatase 181 H (38-126) U/L Total Protein 7.0 (6.3-8.2) g/dL Albumin 3.6 (3.5-5.1) g/dL Blood Type B Positive Antibody Screen Negative <Thania Sosa PA-C - Last Filed: 06/15/24 19:04> Lab Results 06/15/24 Range/Units 16:52 WBC 10.2 H (4.5-10.0) K/mm3 RBC 4.32 (4.2-5.4) M/mm3 Hgb 11.6 L (12.0-15.0) g/dL Hct 37.2 (37.0-47.0) % MCV 86.1 (80-100) fl MCH 26.9 (26-34) pg MCHC 31.2 L (32-36) g/dl RDW 15.2 H (11.5-14.5) % Plt Count 364 (150-375) k/mm3 MPV 9.4 (7.4-10.4) fl Immature Gran % (Auto) 1.1 H (0-0.5) % Neut % (Auto) 74.6 H (45.5-73.1) % Lymph % (Auto) 15.0 L (18.3-44.2) % [place] % (Auto) 7.1 (2.6-8.5) % Eos % (Auto) 1.5 (0-4.4) % Baso % (Auto) 0.7 (0.2-1.2) % Lymph # (Auto) 1.53 (0.9-3.2) K/mm3 [place] # (Auto) 0.7 H (0.1-0.6) K/mm3 Eos # (Auto) 0.2 (0-0.3) K/mm3 Baso # (Auto) 0.1 (0.0-0.1) K/mm3 Abs Immat Gran (auto) 0.11 H (0.00-0.031) K/mm3 Absolute Neuts (auto) 7.6 H (1.3-6.7) K/mm3 Absolute Nucleated RBC 0.000 (0.0-0.012) K/mm3 Nucleated RBC % 0.0 (0.0-0.2) % PT 14.3 (11.1-14.7) Seconds INR 1.1 APTT 25.8 (22.3-36.8) Seconds Sodium 136 L (137-145) mmol/L Potassium 4.6 (3.4-5.0) mmol/L Chloride 101 (98-107) mmol/L Carbon Dioxide 23 (22-30) mmol/L Anion Gap 12 (4-12) mmol/L BUN 24 H (7-17) mg/dL Creatinine 0.95 (0.7-1.0) mg/dL Estim Creat Clear Calc 39 ml/min Estimated GFR 56 L (59 - ) Glucose 212 H (65-110) mg/dL Calcium 6.6 L (8.4-10.2) mg/dL Total Bilirubin 0.2 (0.2-1.3) mg/dL AST 16 (14-36) U/L ALT 21 (6-35) U/L Alkaline Phosphatase 181 H (38-126) U/L Total Protein 7.0 (6.3-8.2) g/dL Albumin 3.6 (3.5-5.1) g/dL Blood Type B Positive Antibody Screen Negative <Bernard Avelar MD - Last Filed: 06/15/24 18:47> Discharge Plan Discharge Clinical Impression: Acute upper GI bleeding <Thania Sosa PA-C - Last Filed: 06/15/24 19:04> Patient Disposition: Still a Patient <Thania Sosa PA-C - Last Filed: 06/15/24 19:04> Condition: Stable <Thania Sosa PA-C - Last Filed: 06/15/24 19:04> Patient Language: [place]ian <Thania Sosa PA-C - Last Filed: 06/15/24 19:04> Prescriptions: No Action aspirin 81 mg tablet,chewable 81 mg PO DAILY glucagon HCl [Glucagon (HCl) Emergency Kit] 1 mg recon soln 1 mg subcut ONCE insulin lispro [Humalog Karsten KwikPen U-100] 100 unit/mL insulin pen, half- unit 5 unit subcut .COMPLEX Rx Instructions: 5 units subcutaneously with meals; insulin lispro [Humalog Karsten KwikPen U-100] 100 unit/mL insulin pen, half- unit 1 sliding scale dose subcut USEASDIRECTD insulin glargine [Lantus Solostar U-100 Insulin] 100 unit/mL (3 mL) insulin pen 10 unit subcut DAILY insulin glargine [Lantus U-100 Insulin] 100 unit/mL solution 10 unit subcut DAILY losartan 25 mg tablet 25 mg PO DAILY alum-mag hydroxide-simeth [Maalox Maximum Strength] 400-400-40 mg/5 mL suspension 10 ml PO Q6H PRN (Reason: indigestion) metformin 1,000 mg tablet 1,000 mg PO BID magnesium hydroxide [Milk of Magnesia] 400 mg/5 mL suspension 10 ml PO DAILY omeprazole 20 mg tablet,delayed release (DR/EC) 20 mg PO DAILY ondansetron 4 mg tablet,disintegrating 4 mg PO Q6H PRN (Reason: nausea and vomiting) trolamine salicylate [Pain Relief (trolamine salicy)] 10 % cream 1 applic topical TID PRN (Reason: muscle pain) senna 8.6 mg capsule 8.6 mg PO BID acetaminophen [Tylenol] 325 mg tablet 650 mg PO Q4H PRN (Reason: pain) polyethylene glycol 3350 [Miralax] 17 gram powder in packet 17 g PO DAILY Systane (PF) 0.4-0.3 % dropperette 1 drp EACH EYE TID PRN (Reason: dry eye(s)) levetiracetam [Keppra] 500 mg Tablet 500 mg PO Q12HR Qty: 60 0RF thiamine HCl (vitamin B1) [Vitamin B-1] 100 mg Tablet 100 mg PO QAM Qty: 30 0RF <Thania Sosa PA-C - Last Filed: 06/15/24 19:04> Follow-up/Referrals: Adeola,Clive Fish DO [Primary Care Provider] - <Thania Sosa PA-C - Last Filed: 06/15/24 19:04>
--- OUTSIDE RECORDS SUMMARY | 2024-06-15 16:07 | XMS_ITS | Continuity of Care Document ---
Author Organization [facility] Address [address] [place] [address] Phone Care Team Providers Care Parts Interpreter Name Role Phone Rupal Jain PA-C Unavailable Unavailable Allergies, Adverse Reactions, Alerts Substance Reaction Status Criticality NITROFURANTOIN MACROCRYSTALLINE Active No Information nitrofurantoin Active No Informatio n Quinolones Active No Information Sulfa (Sulfonamide Antibiotics) Active No Information CIPROFLOXACIN HCL Active No Informa tion ciprofloxacin Active No Information PENICILLIN Active No Information Medications Medication Instructions Dosage Effective Dates (start - stop) Status Comments METFORMIN HCL ER (unknown strength) Not Available - Active BENICAR (unknown strength) Not Available - Active ASPIRIN EC (unknown strength) Not Available - Active XIIDRA (unknown strength) Not Available - Active ESTRACE (unknown strength) Not Available - Active Procedures Procedure Date RADEX KNE COMPL 4/MORE VIEWS OFFICE/OUTPATIENT VISIT NEW Advance Directives Directive Yes / No Effective Date File Name No Information Encounters Encounter Description Practice Location Reason(s) For Visit Diagnoses Date Provider Providers Copied on Encounter OFFICE/OUTPAT IENT VISIT NEW [facility] , [address], [place], [address], tel:[phone] [facility] Pain in right kneeBody mass index (BMI) 30.0-30.9, adult Cristobal Goldsmith. [address], [place], [place], [id number]. tel:[phone] Referring Provider: Ramsey Peguero, [address] [place] [address], [place], [address] . tel:[phone] Family History Family Member Type Diagnosis Age At Onset Father Problem (finding) Renal disease Father Problem (finding) Maternal history of libby betes mellitus Payers Payer name Insurance type Covered democrat ID Truong richards(s) Medicare E2 OT [id number] Miscellaneous/Courtesy Claim OT ILL LISA Social History Type Description Quantity Date Captured Comments Alcohol Use Details No Caffeine Use Details Unknown Tobacco Use Status Never smoked tobacco 2016 Smoking Status Never smoker Non-Smoking Tobacco Use Details : No Details Available : No Details Available Sex Female Vital Signs Date / Time: Height Weight BMI Pulse Rate Blood Pressure Temperature Respiratory Rate Body Surface Area Head Circumference Head Circ. Percentile Wt./Joao. Percentile BMI percentile Pulse Ox Inhaled Ox 2:46 PM 61.00 in 74.389 kg (164.00 lbs) 30.9 9 kg/m eter (2) 119/61 mm[Hg] Chief Complaint And Reason For Visit No Information Reason For Referral Reason For Referral No Information Plan Of Treatment Date Type Action Status Referral Ordered: RADEX KNE COMPL 4/MORE VIEWS RT knee ordered History Of Present Illness Encounter Date Complaint History Of Prese nt Illness No Information Functional Status Date Functional Assessmen t No Information Instructions Date Instruction Additional Infor mation Discussed treatment options Rela raul to Pain in right knee Call for increase in pain Relate d to Pain in right knee Weight loss from baseline weight Related to Body mass index (BMI) 30.0-30.9, adult Assessments Type Assessment Date assessment Pain in right knee assessment Body mass index (BMI) 30.0-30.9, adult Patient Care Teams Name Effective Dates (start - stop) Status Members No Information
--- OUTSIDE RECORDS SUMMARY | 2024-06-15 16:07 | XMS_ITS | Encounter Summary ---
Author Organization [facility] Address [address] [place] [address] Phone Care Team Providers Care Glass Science Engineer Name Role Phone Unknown, Notinfile Primary Care Provider Unavail able Unknown, Notinfile Primary Care Provider Unavail able Ramsey Peguero MD Primary Care Provider + [phone] Meera Arredondo CARBON PLANT GRINDER Primary Care Provi marjorie Sony Martel MD Unavailable +[phone] Ramsey Peguero MD Primary Care Provider + [phone] Ximena Kulkarni MD Primary Care Provider [phone] Ramsey Peguero MD Primary Care Provider + [phone] Renae Nguyen MD Primary Care Provider Soumya Lockwood CARBON PLANT GRINDER Primary Care Provider Tia Medeiros MD Unavailable [phone] Renny Maldonado MD Unavailable +[phone] Hernandez Méndez DDS Unavailable [phone] Stephie Mcintosh OD Unavailable [phone] Leatha Landon MD Unavailable [phone] Ruel Lucio PhD Unavailable +[phone] Encounter Details Date Type Department Care Team (Latest Contact Info) Description 06/26/2017 Orders Only [facility] CONVERSION Scanning, Provider Social History Tobacco Use Types Packs/Day Years Used Date Smoking Tobacco: Never Alcohol Use Standard Drinks/Week Comments No 0 (1 standard drink = 0.6 oz pur e alcohol) Comments Unknown Sex and Gender Information Value Date Recorded Sex Assigned at Not on file Legal Sex Female 8:21 PM MANAGEMENT TRAINEE MARKETING Gender Identity Not on file Sexual Orientation Not on file documented as of this encounter Plan of Treatment Not on file documented as of this encounter Procedures Procedure Name Priority Date/Time Associated Diagnosis Comments VASCULAR LABORATORY REPORT 06/26/2017 4:37 PM CDT VASCULAR LABORATORY REPORT 06/26/2017 3:50 PM CDT documented in this encounter Results * VASCULAR LABORATORY REPORT (06/26/2017 4:37 PM CDT) Anatomical Region Laterality Modality Ultrasound us Provider Scanning CV VASCULAR PROCEDURES Final R esult * VASCULAR LABORATORY REPORT (06/26/2017 3:50 PM CDT) Anatomical Region Laterality Modality Ultrasound us Provider Scanning CV VASCULAR PROCEDURES Final R esult documented in this encounter Visit Diagnoses Not on filedocumented in this encounter Care Teams Glass Science Engineer Relationship Specialty Start Date End Date Unknown, Notinfile PCP - General 06/25/17 07/02/17 Unknown, Notinfile PCP - General 07/03/17 07/07/17 Ramsey Peguero MD [address] [place] [address] PCP - General 07/08/17 11/30/18 Meera Arredondo NP [address] [place] [address] PCP - General 12/01/18 04/05/19 Ramsey Peguero MD [address] [place] [address] PCP - General Internal Medicine 04/06/19 07/13/20 Ximena Kulakrni MD [address] [address] PCP - General 07/14/20 10/16/20 Ramsey Peguero MD [address] [place] [address] PCP - General Internal Medicine 10/17/20 07/04/21 Renae Nguyen MD [address] [place], [place] [address] PCP - General Internal Medicine 07/05/21 12/05/22 Soumya Lockwood, TYLER [address] [place], [place] [address] PCP - General Internal Medicine 12/06/22 Sony Martel MD [address] [facility] [place] [address] Consulting Physician Infectious Diseases 03/06/19 Tia Medeiros MD [address] [place] [address] Consulting Physician Endocrinology Diabetes & Metabolism 12/12/22 Renny Maldonado MD [address] [place] [address] Consulting Physician Cardiovascular Disease 12/12/22 Hernandez Méndez DDS [address] [place] [address] Oral Surgery 12/12/22 Stephie Mcintosh, TALA [address] [facility], [address] [place] [address] Optometry 12/12/22 Leatha Landon MD [address] [place] [address] Consulting Physician Otolaryngology 12/12/22 [place] [address] [place] [address] Psychology 12/12/22 documented as of this encounter
--- OUTSIDE RECORDS SUMMARY | 2024-06-15 16:07 | XMS_ITS | Encounter Summary ---
Author Organization [facility] Healthcare Address [address] [place] [address] Care Team Providers Care Recording Studio Set Up Worker Name Role Phone Ramsey Peguero MD Primary Care Provider + [phone] Meera Arrednodo ESTIMATOR PRINTING PLATE MAKING Primary Care Provi marjorie Sony Martel MD Unavailable +[phone] Ramsey Peguero MD Primary Care Provider + [phone] Ximena Kulkarni MD Primary Care Provider [phone] Ramsey Peguero MD Primary Care Provider + [phone] Renae Nguyen MD Primary Care Provider Soumya Lockwood ESTIMATOR PRINTING PLATE MAKING Primary Care Provider Tia Medeiros MD Unavailable [phone] Renny Maldonado MD Unavailable +[phone] Hernandez Méndez DDS Unavailable [phone] Stephie Mcintosh OD Unavailable [phone] Leatha Landon MD Unavailable [phone] Ruel Lucio PhD Unavailable +[phone] Encounter Details Date Type Department Care Team (Late st Contact Info) Description 12/10/2017 Community Orders [facility] EpicCare Link Ricky Sears MD [address] [place] [address] Social History Tobacco Use Types Packs/Day Years Used Date Smoking Tobacco: Never Alcohol Use Standard Drinks/Week Comments No 0 (1 standard drink = 0.6 oz pur e alcohol) Comments Unknown Sex and Gender Information Value Date Recorded Sex Assigned at Not on file Legal Sex Female 8:21 PM WORKERS COMPENSATION LEGAL SECRETARY Gender Identity Not on file Sexual Orientation Not on file documented as of this encounter Plan of Treatment Not on file documented as of this encounter Visit Diagnoses Not on filedocumented in this encounter Care Teams Recording Studio Set Up Worker Relationship Specialty Start Date End Date Ramsey Peguero MD [address] [place] [address] PCP - General 07/08/17 11/30/18 Meera Arredondo NP [address] [place] [address] PCP - General 12/01/18 04/05/19 Ramsey Peguero MD [address] [place] [address] PCP - General Internal Medicine 04/06/19 07/13/20 Xiemna Kulkarni MD [address] [facility] [address] [address] PCP - General 07/14/20 10/16/20 Ramsey Peguero MD [address] [place] [address] PCP - General Internal Medicine 10/17/20 07/04/21 Renae Nguyen MD [address] [place] [address] PCP - General Internal Medicine 07/05/21 12/05/22 Soumya Lockwood, TYLER [address] [place] [address] PCP - General Internal Medicine 12/06/22 Sony Martel MD [address] [place] [address] [address] [place] [address] Consulting Physician Infectious Diseases 03/06/19 Tia Medeiros MD [address] [place] [address] Consulting Physician Endocrinology Diabetes & Metabolism 12/12/22 Renny Maldonado MD [address] [place] [address] Consulting Physician Cardiovascular Disease 12/12/22 Hernandez Méndez DDS [address] [facility] [address] [place] [address] Oral Surgery 12/12/22 Stephie Mcintosh, TALA [address] [facility]PT OPHTHALMOLOGY, [address] [place] [address] Optometry 12/12/22 Leatha Landon MD [address] [facility] [facility] [address] [place] [address] Consulting Physician Otolaryngology 12/12/22 [place] [address] [place] [address] Psychology 12/12/22 documented as of this encounter
--- OUTSIDE RECORDS SUMMARY | 2024-06-15 16:07 | XMS_ITS | Encounter Summary ---
Author Organization [facility] Address [address] [place] [address] Phone Care Team Providers Care Control Electrician Name Role Phone Ramsey Peguero MD Primary Care Provider + [phone] Unknown, Notinfile Primary Care Provider Unavail able Ramsey Peguero MD Primary Care Provider + [phone] Unknown, Notinfile Primary Care Provider Unavail able Unknown, Notinfile Primary Care Provider Unavail able Ramsey Peguero MD Primary Care Provider + [phone] Meera Arredondo NP Primary Care Provi marjorie Sony Martel MD Unavailable [phone] Ramsey Peguero MD Primary Care Provider + [phone] Ximena Kulkarni MD Primary Care Provider [phone] Ramsey Peguero MD Primary Care Provider + [phone] Renae Nguyen MD Primary Care Provider Soumya Lockwood SENIOR QA TESTER Primary Care Provider Tia Medeiros MD Unavailable [phone] Renny Maldonado MD Unavailable +[phone] Hernandez Méndez DDS Unavailable [phone] Stephie Mcintosh OD Unavailable Leatha Landon MD Unavailable [phone] Ruel Lucio PhD Unavailable Encounter Details Date Type Department Care Team (Latest Contact Info) Description 06/03/2014 Orders Only [facility] Scanning, Provider Social History Tobacco Use Types Packs/Day Years Used Date Smoking Tobacco: Never Assessed Comments Unknown Sex and Gender Information Value Date Recorded Sex Assigned at Not on file Legal Sex Female 8:21 PM DECK STEWARD Gender Identity Not on file Sexual Orientation Not on file documented as of this encounter Plan of Treatment Not on file documented as of this encounter Procedures Procedure Name Priority Date/Time Associated Diagnosis Comments CARDIOLOGY DOCUMENT SCAN 06/03/2014 documented in this encounter Results * SCAN - CARDIOLOGY (06/03/2014) Anatomical Region Laterality Modality Other us Provider Scanning CV CARDIAC SERVICES PROCEDURES Final Result documented in this encounter Visit Diagnoses Not on filedocumented in this encounter Care Teams Control Electrician Relationship Specialty Start Date End Date Ramsey Peguero MD [address] [place] [address] PCP - General 09/02/13 06/05/17 Unknown, Notinfile PCP - General 06/06/17 06/23/17 Ramsey Peguero MD [address] [place] [address] PCP - General 06/24/17 06/24/17 Unknown, Notinfile PCP - General 06/25/17 07/02/17 Unknown, Notinfile PCP - General 07/03/17 07/07/17 Ramsey Peguero MD [address] [place] [address] PCP - General 07/08/17 11/30/18 Meera Arredondo NP PCP - General 12/01/18 04/05/19 Ramsey Peguero MD [address] [place] [address] PCP - General Internal Medicine 04/06/19 07/13/20 Ximena Kulkarni MD [address] [facility] [address] [address] PCP - General 07/14/20 10/16/20 Ramsey Peguero MD [address] [place] [address] PCP - General Internal Medicine 10/17/20 07/04/21 Renae Nguyen MD [address] [place] [address] PCP - General Internal Medicine 07/05/21 12/05/22 Soumya Lockwood, TYLER [address] [place] [address] PCP - General Internal Medicine 12/06/22 Sony Martel MD Consulting Physician Infectious Diseases 03/06/19 Tia Medeiros MD [address] [place] [address] Consulting Physician Endocrinology Diabetes & Metabolism 12/12/22 Renny Maldonado MD [address] [address] Consulting Physician Cardiovascular Disease 12/12/22 Hernandez Méndez DDS [address] [place] [address] Oral Surgery 12/12/22 Stephie Mcintosh, TALA [address] [facility]PT OPHTHALMOLOGY, [address] [place] [address] Optometry 12/12/22 Leatha Landon MD [address] [place] [address] Consulting Physician Otolaryngology 12/12/22 [place] [address] [place] [address] Psychology 12/12/22 documented as of this encounter
--- OUTSIDE RECORDS SUMMARY | 2024-06-15 16:07 | XMS_ITS | Encounter Summary ---
Author Organization [facility] Health Address [address] [place] [address] Care Team Providers Care Charter And Tour Bus Driver Name Role Phone Ramsey Peguero MD Primary Care Provider [phone] Encounter Details Date Type Department Care Team (Late st Contact Info) Description 11/17/2020 [facility] Outpatient Visit EXTERNAL NON-[facility] DEPT Geovanna Cardenas, PhD [facility] [address] Social History Tobacco Use Types Packs/Day Years [...] on filedocumented in this encounter Care Teams Charter And Tour Bus Driver Relationship Specialty Start Date End Date Ramsey Peguero MD [address] [facility] [address] [place] [address] PCP - General 04/10/10 documented as of this encounter
--- OUTSIDE RECORDS SUMMARY | 2024-06-15 16:07 | XMS_ITS | Encounter Summary ---
Author Organization [facility] Address [address] [place] [address] Phone Care Team Providers Care Med Admin Name Role Phone Ramsey Peguero MD Primary Care Provider + [phone] Meera Arredondo NP Primary Care Provi marjorie Sony Martel MD Unavailable +[phone] Ramsey Peguero MD Primary Care Provider + [phone] Ximena Kulkarni MD Primary Care Provider [phone] Ramsey Peguero MD Primary Care Provider + [phone] Renae Nguyen MD Primary Care Provider Soumya Lockwood MILK COLLECTOR Primary Care Provider Tia Medeiros MD Unavailable [phone] Renny Maldonado MD Unavailable +[phone] Hernandez Méndez DDS Unavailable [phone] Stephie Mcintosh OD Unavailable [phone] Leatha Landon MD Unavailable [phone] Ruel Lucio PhD Unavailable +[phone] Encounter Details Date Type Department Care Team (Latest Contact Info) Description 11/19/2018 Orders Only [facility] Scanning, Provider Social History Tobacco Use Types Packs/Day Years Used Date Smoking Tobacco: Never Alcohol Use Standard Drinks/Week Comments No 0 (1 standard drink = 0.6 oz pur e alcohol) Comments Unknown Sex and Gender Information Value Date Recorded Sex Assigned at Not on file Legal Sex Female 8:21 PM BAG HANGER Gender Identity Not on file Sexual Orientation Not on file documented as of this encounter Plan of Treatment Not on file documented as of this encounter Procedures Procedure Name Priority Date/Time Associated Diagnosis Comments SCAN - LABS 11/19/2018 documented in this encounter Results * SCAN - LABS (11/19/2018) us Provider Scanning Final Result documented in this encounter Visit Diagnoses Not on filedocumented in this encounter Care Teams Med Admin Relationship Specialty Start Date End Date Ramsey Peguero MD [address] [place] [address] PCP - General 07/08/17 11/30/18 Meera Arredondo NP [address] [place] [address] PCP - General 12/01/18 04/05/19 Ramsey Peguero MD [address] [place] [address] PCP - General Internal Medicine 04/06/19 07/13/20 Ximena Kulkarni MD [address] [facility] [address] [place] [address] PCP - General 07/14/20 10/16/20 Ramsey Peguero MD [address] [place] [address] PCP - General Internal Medicine 10/17/20 07/04/21 Renae Nguyen MD [address] [place] [address] PCP - General Internal Medicine 07/05/21 12/05/22 Soumya Lockwood, MILK COLLECTOR [address] [place] [address] PCP - General Internal Medicine 12/06/22 Sony Martel MD [address] [place] [address] [address] [place] [address] Consulting Physician Infectious Diseases 03/06/19 Tia Medeiros MD [address] [place] [address] Consulting Physician Endocrinology Diabetes & Metabolism 12/12/22 Renny Maldonado MD [address] [place] [address] Consulting Physician Cardiovascular Disease 12/12/22 Hernandez Méndez DDS [address] [facility] [address] [place] [address] Oral Surgery 12/12/22 Stephie Mcintosh OD [address] [facility] OPHTHALMOLOGY, [address] [place] [address] Optometry 12/12/22 Leatha Landon MD [address] [facility] [address] [place] [address] Consulting Physician Otolaryngology 12/12/22 [place] [address] [address] Psychology 12/12/22 documented as of this encounter
--- OUTSIDE RECORDS SUMMARY | 2024-06-15 16:07 | XMS_ITS | Encounter Summary ---
Author Organization [facility] Healthcare Address [address] [place] [id number] Care Team Providers Care Survey And Mapping Technician Name Role Phone Unavailable Primary Care Provider Unavailabl e Reason for Visit * Diagnostic Imaging (Routine) - Closed Specialty Diagnoses / Procedures Referred By Mitchell aceves Referred To Contact Procedures Breast Imaging Screening Outside Reference Referral, Self Referral ID Status Reason Start Date Expiration Date Visits Re quested Visits Authorized [id number] Closed 11/15/2021 12/15/2022 1 1 Encounter Details Date Type Department Care Team (Late st Contact Info) Description 11/20/2011 Hospital Encounter [facility] [address] [place] [address] Social History Tobacco Use Types Packs/Day Years Used Date Smoking Tobacco: Never Smokeless Tobacco: Never Alcohol Use Standard Drinks/Week Comments No 0 (1 standard drink = 0.6 oz pur e alcohol) [facility] Utilities Answer Date Recorded In the past 12 months has [facility] [email or web address], gas, oil, or water [employer] threatened to shut off services in your home? No 02/18/2023 Humiliation, Afraid, Rape, and Kick questionnair e Answer Date Recorded Within the last year, have y ou been afraid of your partner or ex-partner? No 12/12/2022 Within the last year, have y ou been humiliated or emotionally abused in other ways by your partner or ex-partner? No Within the last year, have y ou been kicked, hit, slapped, or otherwise physically hurt by your partner or ex-partner? No 12/12/2022 Within the last year, have y ou been raped or forced to have any kind of sexual activity by your partner or ex-partner? No 12/12/2022 Social Connection and Isolat ion Panel [NHANES] Answer Date Recorded In a typical week, how many times do you talk on the phone with family, friends, or neighbors? Three times a week 02/18/2023 How often do you get togethe r with friends or relatives? More than three times a week 02/18/2023 How often do you attend [facility] or episcopalian services? More than 4 times per year 02/18/2023 Do you belong to any clubs o r organizations such as mosque groups, unions, fraternal or athletic groups, or school groups? Yes 02/18/2023 How often do you attend meet ings of the clubs or organizations you belong to? Never 02/18/2023 Are you , , di vorced, , never , or living with a partner? Never 02/18/2023 AUDIT-C Answer Date Recorded Q1: How often do you have a drink containing alc ohol? Never 12/12/2022 Q2: How many drinks containi ng alcohol do you have on a typical day when you are drinking? 1 or 2 12/12/2022 Q3: How often do you have six or more drinks on one occasion? Never 12/12/2022 Overall Financial Resource Strain (CARDIA) Answe r Date Recorded How hard is it for you to pa y for the very basics like food, housing, medical care, and heating? Not hard at all 02/18/2023 PHQ-2 Answer Date Recorded PHQ-2 Total Score (If total score is 3 or more points, staff should administer the PHQ-9) 0 12/12/2022 [facility] - Occupational Stress Questionnaire Answer Date Recorded Do you feel stress - tense, restless, nervous, or anxious, or unable to sleep at night because your mind is troubled all the time - these days? Only a little 12/12/2022 Exercise Vital Sign Answer Date Recorde d On average, how many days pe r week do you engage in moderate to strenuous exercise (like a brisk walk)? 7 days 12/12/2022 On average, how many minutes do you engage in exercise at this level? 60 min 12/12/2022 Hunger Vital Sign Answer Date Recorded Within the past 12 months, y ou worried that your food would run out before you got the money to buy more. Never true 02/19/20 23 Within the past 12 months, t he food you bought just didn't last and you didn't have money to get more. Never true 02/18/2023 PRAPARE - Transportation Answer Date Re corded In the past 12 months, has l ack of transportation kept you from medical appointments or from getting medications? No 02/08 In the past 12 months, has l ack of transportation kept you from meetings, work, or from getting things needed for daily living? No 02/18/2023 Housing Stability Vital Sign Answer Marc e Recorded In the last 12 months, was t here a time when you were not able to pay the mortgage or rent on time? No 02/18/2023 In the last 12 months, how many places have you lived? 1 02/18/2023 In the last 12 months, was t here a time when you did not have a steady place to sleep or slept in a half-way (including now)? No 02/18/2023 Personal Safety Answer Date Recorded Have you ever been in or are you currently in a harmful physical or emotional relationship or is someone making you feel afraid or unsafe? 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 No 12/12/2022 11:46 AM Soumya Reynoso NP Within the last year, have y ou been afraid of your partner or ex-partner? No 12/12/2022 11:46 AM Oneil Reynoso NP Within the last year, have y ou been raped or forced to have any kind of sexual activity by your partner or ex-partner? No 12/12/2022 11:46 AM CDT Soumya Ochoa NP Within the last year, have y ou been kicked, hit, slapped, or otherwise physically hurt by your partner or ex-partner? No 12/12/2022 11:46 AM CDT Soumya Ochoa NP * Question Answer Date of Assessment Author Q1: How often do you have a drink containing alcohol? Never 12/12/2022 11:46 AM Soumya Cintron NP Q2: How many drinks containing alcohol do you have on a typical day when you are drinking? 1 or 2 12/12/2022 11:46 AM Oneil Reynoso NP Q3: How often do you have si x or more drinks on one occasion? Never 12/12/2022 11:46 AM Oneil Reynoso NP documented as of this encounter Plan of Treatment Not on file documented as of this encounter Procedures Procedure Name Priority Date/Time Associated Diagnosis Comments BREAST IMAGING MG SCREENING OUTSIDE REFERENCE Routine 11/20/2011 12:00 AM CDT documented in this encounter Results * Breast Imaging Screening Outside Reference (11/20/2011 12:00 AM CDT) Impressions [facility] - 11/15/2021 2:02 PM CDT These images are for Reference purposes only and have not been reviewed by [facility]. There will be no report generated by a [facility] Radiologist. Narrative [facility] - 11/15/2021 2:02 PM CDT EXAMINATION: Images For Reference Purposes Only us Self Referral IMG MAMMO PROCEDURES Final Resul t [facility] documented in this encounter Visit Diagnoses Not on filedocumented in this encounter
--- OUTSIDE RECORDS SUMMARY | 2024-06-15 16:07 | XMS_ITS | Encounter Summary ---
Author Organization [facility] Healthcare Address [address] [place] [id number] Care Team Providers Care District Supervisor Name Role Phone Ramsey Peguero MD Primary Care Provider [phone] Reason for Visit * Diagnostic Imaging (Routine) - Closed Specialty Diagnoses / Procedures Referred By Mitchell aceves Referred To Contact Procedures Breast Imaging Diagnostic Outside Reference Referral, Self Referral ID Status Reason Start Date Expiration Date Visits Re quested Visits Authorized [id number] Closed 11/15/2021 12/15/2022 1 1 Encounter Details Date Type Department Care Team (Late st Contact Info) Description 06/21/2014 Hospital Encounter [facility] [address] [place] [id number] Social History Tobacco Use Types Packs/Day Years Used Date Smoking Tobacco: Never Smokeless Tobacco: Never Alcohol Use Standard Drinks/Week Comments No 0 (1 standard drink = 0.6 oz pur e alcohol) [facility] Utilities Answer Date Recorded In the past 12 months has [facility] [employer] gas, oil, or water [employer] threatened to shut off services in your [...] week 02/18/2023 How often do you attend chur or faith services? More than 4 times per year 02/18/2023 Do you belong to any clubs o r organizations such as scientologist groups, unions, fraternal or athletic groups, or [...] staff should administer the PHQ-9) 0 12/12/2022 [facility] [place] [facility] Occupat ional Health - Occupational Stress [...] place to sleep or slept in a [place] [facility] (including now)? No 02/18/2023 Personal Safety Answer Date Recorded Have you ever been in or are you currently in a harmful physical or emotional relationship or is someone making you feel afraid or unsafe? 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 No 12/12/2022 11:46 AM SANDEEPT Soumya Ochoa NP * Question Answer Date of Assessment Author Q1: How often do you have a drink containing alcohol? Never 12/12/2022 11:46 AM SANDEEPT Soumya Peoples NP Q2: How many drinks containing alcohol [...] Date/Time Associated Diagnosis Comments BREAST IMAGING MG DIAGNOSTIC OUTSIDE REFERENCE Routine 06/21/2014 12:00 AM CDT documented in this encounter Results * Breast Imaging Diagnostic Outside Reference (06/21/2014 12:00 AM CDT) Impressions [facility] - 11/15/2021 2:02 PM CDT These images are for Reference purposes only and have not been reviewed by [facility]. There will be no report generated by a [facility] Radiologist. Narrative [facility] - 11/15/2021 2:02 PM CDT EXAMINATION: Images For Reference Purposes Only us Self Referral IMG MAMMO PROCEDURES Final Resul t [facility] documented in this encounter Visit Diagnoses Not on filedocumented in this encounter Care Teams District Supervisor Relationship Specialty Start Date End Date Ramsey Peguero MD [phone] [address] PCP - General 09/02/13 06/05/17 documented as of this encounter
--- OUTSIDE RECORDS SUMMARY | 2024-06-15 16:07 | XMS_ITS | Clinical Summary ---
Author Organization [facility] Address [address] [place] [id number] Care Team Providers Care Captain Assistant Name Role Phone Sony Martel MD Unavailable [phone] Soumya Lockwood NP Primary Care Provider Tia Medeiros MD Unavailable [phone] Renny Maldonado MD Unavailable [phone] Hernandez Méndez DDS Unavailable [phone] Stephie Mcintosh OD Unavailable [phone] Leatha Landon MD Unavailable Ruel Lucio PhD Unavailable [phone] Allergies Active Allergy Reactions Criticality Noted Date Comments Cefuroxime Rash Medium 01/30/2021 Ciprofloxacin Hives,Rash Medium Clindamycin Hives Medium 01/30/2021 Bromocriptine Unknown,Itching Low 11/23/2010 Levofloxacin Other (See comments),Rash Medium 12/22/2012 Morphine Unknown 06/27/2007 Penicillins Rash,Unknown Medium 05/02/2006 Rash Quinolones Hives,Rash,Unknown,U rticaria High 07/14/2020 tendon tear Hives Oxnhgyd-Jbq-Bee Reductase Inhibitors Other (See comments) Low Reaction: Other Sulfa (Sulfonamide Antibiotics) Hives,Rash Medium 07/14/2020 Rash Tetracycline Unknown Low 04/06/2019 Warfarin Nausea only Low 07/29/2018 Medications lancets (onetouch ultrasoft) [facility] [place] sugar twice daily E11.9 100 each 3 04/03/19 Active TROLAMINE SALICYLATE TOP Apply 1 Application topically 2 (two) times a day as needed for muscle/joint pain Active blood sugar diagnostic (ONETOUCH [place]TRA [place] [facility] [place] OneTouch Ultra Blue Test Strip CHECK BS BID Active furosemide (LASIX) 40 mg tablet Take 1 tablet (40 mg total) by mouth daily 10/21/19 22 Active metFORMIN (GLUCOPHAGE) 500 mg tabletIndicatio ns:Diabetes mellitus type 2 in obese Take 2 tablets by mouth (1,000 mg) twice daily. 120 tablet 4 10/31/19 22 Active glucagon 1 mg kit Glucagon Emergency Kit 1 mg solution for injection Active aluminum-magnes ium hydroxide-simet hicone (MAALOX MAX) suspension 400-400-40 mg/5 mL Take 10 mL by mouth every 6 (six) hours as needed for heartburn Active glimepiride (AMARYL) 2 mg tabletIndicatio ns:Diabetes mellitus type 2 in obese Take 1 tablet (2 mg total) by mouth daily 90 tablet 3 05/16/19 23 Active dulaglutide (Trulicity) 0.75 mg/0.5 mL pen injectorIndicat ions:Diabetes mellitus type 2 in obese INJECT 0.5ML (0.75MG) SUBCUTANEOUSLY 1 X WEEKLY 6 mL 1 09/01/19 23 Active Additional Information Patient taking differently: 0.75 mg subcutaneous Weekly, on Saturday, Reported on 02/17/2023 losartan (COZAAR) 25 mg tablet Take 1 tablet (25 mg total) by mouth daily Active omeprazole (PriLOSEC) 20 mg capsule Take 1 capsule (20 mg total) by mouth daily Active peg 400-propylene glycol (SYSTANE) 0.4-0.3 % ophthalmic solution Administer 1 drop into both eyes 3 (three) times a day as needed (as needed) 0.7 mL 11 11/08/19 23 Active citalopram (CeleXA) 10 mg tabletIndicatio ns:Mood disturbance Take 1 tablet (10 mg total) by mouth daily 90 tablet 02/13/20 23 Active traZODone (DESYREL) 50 mg tabletIndicatio ns:Sleep disturbance Take 0.5 tablets (25 mg total) by mouth nightly as needed for sleep 45 tablet 02/13/20 Active acetaminophen (TYLENOL) 325 mg tablet Take 1-2 tablets (325-650 mg total) by mouth every 4 (four) hours as needed for pain Active biotin 2,500 mcg capsule Take 2,500 mcg by mouth daily Active cholecalciferol (VITAMIN D-3) 5,000 unit tablet Take 1 tablet (5,000 Units total) by mouth daily Active coenzyme F97-[id number] E 100-5 mg-unit capsule Take 1 tablet by mouth daily Active cyanocobalamin (Vitamin B-12) 500 mcg tabletIndicatio ns:Prevention of Vitamin B12 Deficiency Take 1 tablet (500 mcg total) by mouth daily Active docusate sodium (COLACE) 100 mg capsuleIndicati ons:constipatio n Take 1 capsule (100 mg total) by mouth daily as needed for constipation Active ketoconazole (NIZORAL) 2 % cream Apply 1 Application topically 2 (two) times a day as needed for rash Active Lactobacillus acidophilus capsule Take 1 capsule by mouth daily Active famotidine-Ca carb-mag hydrox (PEPCID COMPLETE) 10-800-165 mg chewable tablet Take 1 tablet by mouth daily as needed for heartburn Active vit C,J-Yo-zfoto-bela tein-zeaxan 250-90-40-1 mg capsule Take 1 capsule by mouth 2 (two) times a day Active calcium carbonate (OS-KYAW) 1,177 mg (471 mg elemental) tablet,chewable Take 2 tablets (2,354 mg total) by mouth daily Active ascorbic acid, vitamin C, (VITAMIN C) 1,000 mg CR tablet Take 1 tablet (1,000 mg total) by mouth daily Active apixaban (Eliquis) 2.5 mg tabletIndicatio ns:history of pulmonary embolism Take 1 tablet (2.5 mg total) by mouth 2 (two) times a day 30 tablet 1 02/20/20 Active benzonatate (TESSALON) 100 mg capsule TAKE 1 CAPSULE BY MOUTH THREE TIMES DAILY NEEDED FOR COUGH Active inclisiran (Leqvio) 284 mg/1.5 mL syringe Inject 1.5 mL by subcutaneous route. 09/06/19 Active Active Problems Problem Noted Date Diagnosed Date Bilateral cellulitis of lower leg 02/18/2023 Hypothermia due to exposure 02/18/2023 Admission for aftercare 02/17/2023 Memory deficit 11/16/2022 Diabetes mellitus 11/07/2022 Diverticulitis 11/07/2022 CAD (coronary artery disease) 08/02/2022 Takes dietary supplements 12/05/2021 Assessment & Plan (12/05/2021 9:34 AM CDT): rec that she stop lamine d arco due to risk of bleeding with concurrent Xarelto use. Gastroesophageal reflux disease without esophagi tis 08/05/2021 Acute pulmonary embolism 08/05/2021 Assessment & Plan (06/04/2022 9:10 PM CDT): Unprovoked PE 07/2021. In setting of prior DVT while hospitalized, we have planned indefinite anticoagulation. - Cont Xarelto 20mg every day Assessment & Plan (12/05/2021 9:33 PM CDT): Unprovoked PE 07/2021. In setting of prior DVT while hospitalized, we have planned indefinite anticoagulation. - Cont Xarelto 20mg every day Allergy to multiple antibiotics 07/05/2021 Assessment & Plan (07/05/2021 10:04 PM CDT): Many of her reactions are poorly characterized, and unfortunately antibiotic choices are extremely limited. We were able get macrobid and azithromycin off her allergy list. 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 Rec good overhead lighting for near task/KB lamp Assessment & Plan (11/23/2019 3:22 PM CDT): best-corrected visual acuity (BVA) improves with refraction, release updated glasses Rx Nonexudative age-related mac ular degeneration, bilateral, stage unspecified 11/12/2019 Assessment & Plan (03/20/2022 5:06 PM BRADDER): Stable on OCT, cont amsler - rtc with changes, rec starting AREDs formulation vitamins Assessment & Plan (06/01/2021 11:24 AM CDT): Stable OCT - cont amsler daily, call immediately with any changes Assessment & Plan (07/29/2020 3:49 PM CDT): Age-related macular degeneration (ARMD) stable from last exam. Continue to monitor Assessment & Plan (11/23/2019 5:49 PM CDT): Pt was evaluated in retina clinic earlier this month. Continue amsler, instructed on use, call immediately with changes. RTC 05/2019 (Arnaldo, already scheduled) with DFE and OCT macula. Assessment & Plan (11/12/2019 10:31 AM CDT): No FHx, no h/o tobaccoism Reaction to AREDS formulation - blood pressure control and smoking avoidance reviewed with patient. Uses [facility] See optometry in 6 months. Pseudophakia of both eyes 11/12/2019 Assessment & Plan (03/20/2022 5:06 PM BRADDER): Patient was educated on the intraocular lens (IOL) status. Follow. Assessment & Plan (06/01/2021 11:23 AM CDT): Pt ed on intraocular lens (IOL) status. Follow. Assessment & Plan (07/29/2020 3:56 PM CDT): Pinhole improved vision Rx change was noted on manifest refraction today. Did not prescribe new RX today. Patient to have manifest refraction (MR) rechecked on next visit Patient was educated on the intraocular lens (IOL) status. Assessment & Plan (11/23/2019 3:21 PM CDT): Patient was educated on the intraocular lens (IOL) status. Follow. Assessment & Plan (11/12/2019 10:18 AM CDT): Excellent pinhole acuity Observe Female stress incontinence 05/30/2019 Left ventricular diastolic dysfunction 9 Overview (11/07/2022): grade 1 Tear of right rotator cuff 09/09/2018 Solitary pulmonary nodule 06/12/2018 Obesity with body mass index 30 or greater 06/10 Sensorineural hearing loss, asymmetrical 018 Dyslipidemia 06/17/2017 Pulmonary embolism 06/17/2017 Osteopenia 06/13/2017 Overweight 06/13/2017 Overview (11/07/2022): Removal Reason: BMI > 30 Medicare annual wellness visit, subsequent 06/07 Assessment & Plan (12/12/2022 2:27 PM CDT): - - Depression screen: PHQ Screening PHQ-2 Total Score (If total score is 3 or more points, staff should administer the PHQ-9): 0 - A1c: see dm - [facility]ids[facility] ordered and gets that- every 6m - [facility] - DEXA: she will check - Colon cancer: not needed - Mammogram: UTD: BI-RADS Category 2: Benign.-gets annually- did have this for repeat of the diagnostic- breast reduction and painful. - Pap: not needed - Lung cancer: not needed - Hepatitis C: not needed - HIV: not needed - Influenza: she is getting next week. - RSV: sent order w pt - Td/Tdap: utd 2020 - Shingrix utd - Pneumovax utd - Prevnar: utd - COVID: sched bivalent booster Routine health maintenance objectives discussed, including healthy diet, physical activity, and adequate calcium and vitamin D intake. Orders placed for any outstanding screening studies as noted. Physical exam performed as above.Routine annual labs, if needed, have been ordered and will be reviewed with patient when results available. Patient here for annual Medicare wellness visit and for review of complete medical problem list. All the elements of the plan were completed as outlined by CMS. A copy of the prevention plan was given to the patient. I reviewed Medicare Wellness Questionnaire (other physicians involved in care, depression screen, advanced directives), cognitive/memory, and functional assessment. I reviewed and updated the complete problem list, medications, allergies, family history, social history and immunization records with the patient. I provided preventive counseling and early detection interventions to the patient through health maintenance update and summary of today's office visit. Discussed Usual Preventative Care for age today. We discussed ways to maintain a healthy lifestyle through regular fitness, diet, rest, resilience, obesity prevention/reduction and safety. Continue current medications and continue current healthy lifestyle patterns and return for routine annual checkups. Immunization status was reviewed and addressed based on CDC guidelines. Age appropriate counseling and testing was discussed using the Agency for Health Care Research and Quality (AHRQ.gov) recommendations as a basis. We will check lipids and additional screening labs as indicated. I recommended moderate aerobic exercise regularly at least 30 minutes most days of the week. A low-fat, low carbohydrate diet is recommended. Get calcium 1-1.2 gram daily with Vit D via diet or supplements Try to get 6-8 hours of sleep daily. Reduce exposure to stress. Accident Prevention was encouraged via Seatbelt/Helmet use. Patient was encouraged to contact this office should any new problems develop in the interim until next exam. Assessment & Plan (12/05/2021 9:42 AM CDT): - - Depression screen: PHQ Screening PHQ-2 Total Score (If total score is 3 or more points, staff should administer the PHQ-9): 0 - A1c: see dm - Lipids: see HLD - DEXA: she will check - Colon cancer: not needed - Mammogram: scheduled - Pap: not needed - Lung cancer: not needed - Hepatitis C: not needed - HIV: not needed - Influenza: she is getting next week. - Td/Tdap: utd 2020 - Shingrix utd - Pneumovax utd - Prevnar: utd - COVID: sched bivalent booster Routine health maintenance objectives discussed, including healthy diet, physical activity, and adequate calcium and vitamin D intake. Orders placed for any outstanding screening studies as noted. Physical exam performed as above.Routine annual labs, if needed, have been ordered and will be reviewed with patient when results available. History of deep venous thrombosis 06/07/2017 Presence of inferior vena cava filter 06/07/2017 Osteoarthritis 02/11/2017 Age-related macular degeneration 08/28/2016 Hearing loss 08/23/2016 Hypertension 11/28/2015 Assessment & Plan (12/12/2022 2:27 PM CDT): BP at goal <130/80 on home BPs. - Current medication regimen: cont olmesartan 5mg every day, furosemide 40mg every day - Counseled regarding lifestyle measures to control HTN including low salt diet rich in fruits and vegetables, limiting alcohol use, regular exercise, and weight loss of 5-10% if pt is obese. Assessment & Plan (06/04/2022 9:10 PM CDT): BP at goal <130/80 at home. - Current medication regimen: cont furosemide 40mg every day, losartan 25mg every day - Counseled regarding lifestyle measures to control HTN including low salt diet rich in fruits and vegetables, limiting alcohol use, regular exercise, and weight loss of 5-10% if pt is obese. Assessment & Plan (12/05/2021 9:30 PM CDT): BP at goal <130/80 on home BPs. - Current medication regimen: cont olmesartan 5mg every day, furosemide 40mg every day - Counseled regarding lifestyle measures to control HTN including low salt diet rich in fruits and vegetables, limiting alcohol use, regular exercise, and weight loss of 5-10% if pt is obese. Assessment & Plan (07/27/2021 11:43 AM CDT): BP above goal <130/80 - Current medication regimen: - Asked pt to resume home BP monitoring BID and send these to me in 1 week - Counseled regarding lifestyle measures to control HTN including low salt diet rich in fruits and vegetables, limiting alcohol use, regular exercise, and weight loss of 5-10% if pt is obese. Assessment & Plan (07/05/2021 10:00 PM CDT): BP above goal <130/80. - Current medication regimen: cont olmesartan 5mg every day - asked her to send home BPs - Counseled regarding lifestyle measures to control HTN including low salt diet rich in fruits and vegetables, limiting alcohol use, regular exercise, and weight loss of 5-10% if pt is obese. Diverticular disease of colon 08/24/2015 Diabetes mellitus type 2 in obese ([facility]) 06/11 Overview (06/21/2016): Type 2 diabetes mellitus in obese Assessment & Plan (06/04/2022 9:09 PM CDT): Control is improving. F/b Dr. Medeiros. Medication regimen: cont glimepiride 2mg every day, metformin 1000mg bid, Trulicity 0.75mg qweek. Now off insulin! HbA1c Lab Results Component Value Date HGBA1C 6.5 06/04/2022 Albumin/Creatinine Lab Results Component Value Date ALBCREATRATU <27 08/04/2021 ACEi/ARB prescribed yes Statin prescribed no statin intolerant Foot/extremity exam performed 06/2021, protective sensation intact Retinopathy screening performed 03/2022, no DR Pt counseled regarding diet, physical activity, medication adherence Assessment & Plan (12/05/2021 9:29 PM CDT): Control is improving. F/b Dr. Medeiros. Medication regimen: cont glimepiride 2mg every day, metformin 1000mg bid, Omeprazole 0.5mg qweek. Now off insulin! HbA1c Lab Results Component Value Date HGBA1C 6.4 (H) 11/29/2021 Albumin/Creatinine Lab Results Component Value Date ALBCREATRATU <27 08/04/2021 ACEi/ARB prescribed yes Statin prescribed no statin intolerant Foot/extremity exam performed 06/2021, protective sensation intact Retinopathy screening performed 05/2021, no DR Pt counseled regarding diet, physical activity, medication adherence Assessment & Plan (07/05/2021 10:01 PM CDT): Control is improving Medication regimen: cont glimepiride 2mg every day, Lantus 12U every day, metformin 1000mg bid HbA1c Lab Results Component Value Date HGBA1C 7.2 07/05/2021 Albumin/Creatinine Lab Results Component Value Date ALBCREATRATU See Comment 07/25/2020 ACEi/ARB prescribed yes Statin prescribed no statin intolerant Foot/extremity exam performed 06/2021, protective sensation intact Retinopathy screening performed 05/2021, no DR Pt counseled regarding diet, physical activity, medication adherence Assessment & Plan (11/12/2019 10:28 AM CDT): A1C 7.6% No evidence of background diabetic retinopathy. Vitamin D deficiency 10/09/2007 Primary hyperparathyroidism 06/12/2006 Mixed hyperlipidemia 05/02/2006 Assessment & Plan (12/05/2021 9:29 PM CDT): Lab Results Component Value Date CHOL 252 (H) 08/04/2021 CHOL 245 (H) 07/25/2020 CHOL 62 07/02/2017 Lab Results Component Value Date HDL 78 08/04/2021 HDL 76 07/25/2020 HDL 20 (L) 07/02/2017 Lab Results Component Value Date LDLCALC 143 (H) 08/04/2021 LDLCALC 133 (H) 07/25/2020 LDLCALC 33 07/02/2017 LDL 181 (H) 09/14/2015 LDLDIRECT 146 (H) 03/08/2015 Lab Results Component Value Date TRIG 154 (H) 08/04/2021 TRIG 179 (H) 07/25/2020 TRIG 43 07/02/2017 - Intolerant of statins, counseled regarding diet Assessment & Plan (07/05/2021 9:59 PM CDT): Lab Results Component Value Date CHOL 245 (H) 07/25/2020 CHOL 62 07/02/2017 CHOL 290 (H) 09/14/2015 Lab Results Component Value Date HDL 76 07/25/2020 HDL 20 (L) 07/02/2017 HDL 85 09/14/2015 Lab Results Component Value Date LDLCALC 133 (H) 07/25/2020 LDLCALC 33 07/02/2017 LDL 181 (H) 09/14/2015 LDLDIRECT 146 (H) 03/08/2015 Lab Results Component Value Date TRIG 179 (H) 07/25/2020 TRIG 43 07/02/2017 TRIG 118 09/14/2015 - Intolerant of statins, counseled regarding diet Resolved Problems Problem Noted Date Diagnosed Date Resolved Date Hospital discharge follow-up 01/22/2023 02/18/2023 Assessment & Plan (01/22/2023 2:38 PM BRADDER): - Keep all the following appts and followups, call with questions. - Coordination of Home care services and follow-up with specialist appointments confirmed. - Instructions have been provided to and reviewed with the patient/critical care physician assistant prior to discharge. Mood disturbance 11/16/2022 02/18/2023 Sleep disturbance 11/16/2022 02/18/2023 Fall injury while running 11/07/2022 Fall on board fishing boat 11/07/2022 1 04/21/2022 Bilateral pulmonary embolism 08/05/2021 12/05/2021 SOB (shortness of breath) 08/05/2021 Diabetes mellitus type 2 without retinopathy 2 06/04/2022 Assessment & Plan (03/20/2022 5:06 PM BRADDER): Pt ed. Stressed BG control (HbA1C<7) to reduce the risk for diabetic ocular complications. Lab Results Component Value Date HGBA1C 6.4 (H) 11/29/2021 Assessment & Plan (06/01/2021 11:24 AM CDT): Pt ed. Stressed BG control (HbA1C<7) to reduce the risk for diabetic ocular complications. Blurred vision 07/29/2020 07/29/2020 Assessment & Plan (07/29/2020 3:53 PM CDT): Patient notes blurred vision following fall injury and head trauma. Ocular exam revealed no changes in ocular health. Continue present management Visual disturbance, subjective 07/29/2020 03/20/2022 Hypocalcemia 11/23/2019 02/18/2023 Pain in face 05/13/2018 02/18/2023 Surgical follow-up care 07/11/201702/08 Edema of lower extremity 06/17/201701/2023 Low back pain 06/13/2017 02/18/2023 Hyperparathyroidism ([facility]/HCC) 07/08/2014 06/04/2022 Overview (06/21/2016): Hyperparathyroidism Skin callus 01/12/2013 02/18/2023 Edema 07/08/2012 02/18/2023 Immunizations Immunization Administration Dates Next Due Influenza, Quadrivalent, Antonia l Culture-based MDCK, Preservative Free, Antibiotic Free, Intramuscular 12/16/2018 Influenza, Quadrivalent, Spl it, Intramuscular 12/10/2019,12/09/2016,12/24/2015,12/23,03/11/2014,12/03/2013 Influenza, Quadrivalent, Spl it, Preservative Free, Intramuscular 12/31/2012 Influenza, Trivalent, Cell Culture-based MDCK, Preservative Free, Antibiotic Free, Intramuscular 12/16/2018 Influenza, Trivalent, High D ose, Split, Preservative Free, Intramuscular 11/27/2017,11/26/2017,12/08/2016 Influenza, Trivalent, Preser vative Free, Intramuscular 12/10/2005 Pfizer SARS-CoV-2 Monovalent Vaccination (12+ Yrs) PURPLE 12/28/2020,04/18/2020,03/28/2020 Pneumococcal Conjugate PCV 13 07/26/2014 Pneumococcal Polysaccharide PPV23 03/14/2010 Td, Unspecified 06/09/2013,07/29/2003 Tdap 07/14/2020,12/12/2013 ZOSTER LIVE 02/22/2015 ZOSTER Recombinant 07/16/2018,04/25/2018 Surgical History Surgery Date Site/Laterality Comments TOTAL ABDOMINAL HYSTERECTOMY 03/11/1979 - 03/10/1980 Hysterectomy, total. OTHER SURGICAL HISTORY hyperparathyroidism: surgery TONSILLECTOMY Tonsillectomy TOTAL ABDOMINAL HYSTERECTOMY Hysterectomy, total OTHER SURGICAL HISTORY Bowel Tissue Repair BUNIONECTOMY Bunionectomy CATARACT EXTRACTION Cataract extraction ROTATOR CUFF REPAIR Rotator Cuff Repair OTHER SURGICAL HISTORY Parathyrodectomy FLUORO GUIDED INJECTION SHOULDER RIGHT 08/26/2018 Right VENA CAVA FILTER PLACEMENT 03/11/2007 - 03/10/2008 CATARACT EXTRACTION Bilateral Medical History Medical History Date Comments Type 2 diabetes mellitus (HCC) D iabetes type 2; Comments: TRINA 09/02/2013 - Hx Other Medical hyperparathyroi dism; Comments: TRINA 09/02/2013 - Arthritis Hypercholesteremia Hypertension Obesity Raynaud phenomenon S/P YAG capsulotomy, bilateral DVT (deep venous thrombosis) (HCC) associated with skull fracture hospitalization Visual disturbance, subjective 07/29/2020 HL (hearing loss) 2017 GERD (gastroesophageal reflux disease) July 2021 TMJ dysfunction 2001 Family History Medical History Relation Name Comments Diabetes Father Father Diabetes mellit us; Heart attack Mother Acute Myocardia l Infarction - (Added by TW Conv) Other Mother Sepsis; Diabetes Other 1 aunt Diabetes mellit us; Colon cancer Other 2 Grandmother Cancer, colon; Diabetes Sister Gaby Diabetes mellit us; Relation Name Status Comments Father Father Mother Other 1 aunt Other 2 Grandmother Sister Gaby Social History Tobacco Use Types Packs/Day Years Used Date Smoking Tobacco: Never Smokeless Tobacco: Never Tobacco Cessation:Counseling Given: Not Answered Alcohol Use Standard Drinks/Week Comments No 0 (1 standard drink = 0.6 oz pur e alcohol) [facility] Utilities Answer Date Recorded In the past 12 months has e electric, gas, oil, or water [employer] threatened to shut off services in your [...] How often do you attend chur or synagogue services? More than 4 times per year 02/18/2023 Do you belong to any clubs o r organizations such as gnosticist groups, unions, fraternal or athletic groups, or [...] staff should administer the PHQ-9) 0 12/12/2022 [facility]ational Stress Questionnaire Answer [...] place to sleep or slept in a detention (including now)? No 02/18/2023 Personal Safety Answer Date Recorded Have you ever been in or are you currently in a harmful physical or emotional relationship or is someone making you feel afraid or unsafe? Denies 02/17/2023 Comments No Sex and Gender Information Value Date Recorded Sex Assigned at Not on file Legal Sex Female 8:21 PM BRADDER Gender Identity Not on file Sexual Orientation Not on file Obstetrics History Last Filed Vital Signs Vital Sign Reading Time Taken Comments Blood Pressure 109/96 02/21/2023 2:08 PM BRADDER Pulse 69 02/21/2023 2:08 PM BRADDER Temperature 36.5 C (97.7 F) 02/21/2023 12:07 PM BRADDER Respiratory Rate 20 02/21/2023 12:07 PM BRADDER Oxygen Saturation 97% 02/21/2023 12:07 PM BRADDER Inhaled Oxygen Concentration - - Weight 78.2 kg (172 lb 6.4 oz) 02/21/2023 5:59 A M BRADDER Height 157.5 cm (5' 2 ) 02/19/2023 8:20 AM BRADDER Body Mass Index 31.53 02/19/2023 8:20 AM BRADDER Plan of Treatment Health Maintenance Due Date Last Done Comments Hepatitis B Screening 07/31/1953 Albumin Creatinine Ratio, Urine 08/04/2022 , 07/25/2020 Dilated Eye Exam 03/20/2023 03/20/2022, , 11/12/2019 Hemoglobin A1C 04/25/2023 10/23/2022, 05/10, 11/29/2021, Additional history exists Covid-19 Vaccine (2023-04 5 season) 2023 12/28/2020, 04/18/2020, 03/28/2020 Depression Screening 12/13/2023 12/12/2022, 12/12/2022, 12/05/2021, Additional history exists Foot Exam 12/13/2023 12/12/2022, 12/10, 05/14/2018, Additional history exists Lipid Panel 12/13/2023 12/12/2022, 10/09, 10/23/2022, Additional history exists Well Visit 65+ 12/13/2023 12/12/2022, 06/2022, 12/05/2021 Fall Risk Assessment 02/22/2024 02/21/2023, 12/12/2022, 12/05/2021, Additional history exists eGFR 02/22/2024 02/21/2023, 02/08, 02/19/2023, Additional history exists Influenza Vaccine (Season Ended) 2024 12/10/2019, 12/16/2018, 12/16/2018, Additional history exists DTaP/Tdap/Td Vaccine (3 - Td or Tdap) 07/14/2030 07/14/2020, 12/12/2013, 06/09/2013, Additional history exists Pneumococcal vaccine 65+ Completed 07/26/2014, 06/2010 Zoster Vaccine Completed 07/16/2018, 04/11, 02/22/2015 Procedures Procedure Name Priority Date/Time Associated Diagnosis Comments EGFR Routine 02/21/2023 6:43 AM BRADDER LIPID PANEL Routine 12/12/2022 12:02 PM CDT Medicare annual wellness visit, subsequent Hyperlipidemia, unspecified hyperlipidemia type HEMOGLOBIN A1C Routine 10/23/2022 7:37 AM CDT Diabetes mellitus type 2 in obese ([facility]/HCC) ([facility]) ALBUMIN CREATININE RATIO, URINE Routine 08/04/2021 10:41 AM CDT Diabetes mellitus type 2 in obese ([facility]) ([facility]) Hyperlipidemia, unspecified hyperlipidemia type Vitamin D deficiency Hyperparathyroidism Shortness of breath from Last 3 Months or Most Recently Relevant to Health Maintenance Results * eGFR (02/21/2023 6:43 AM BRADDER) eGFR 44 mL/min/1. 73 m2 OMER Comment: Interpretive Data Reference Interval Normal >/= 90 mL/min/1.73m2 Mildly decreased* 60 - 89 mL/min/1.73m2 Mildly to moderately decreased 45 - 59 mL/min/1.73m2 Moderately to severely decreased 30 - 44 mL/min/1.73m2 Severely decreased 15 - 29 mL/min/1.73m2 Kidney Failure < 15 mL/min/1.73m2 *Relative to young adult level Estimated glomerular filtration rate is determined by the 2020 CKD-EPI equation recommended by the National Kidney Foundation (A Unifying Approach to GFR Estimation: Recommendations of the NKF-ASK Task Force on Reassessing the Inclusion of Race in Diagnosing Kidney Disease, JASN 2020). The CKD-EPI equation should not be used for patients with unstable renal function and has not been validated in children and those over 70. Current interpretive data was last reviewed 2021. Blood 02/21/2023 6:43 AM BRADDER 02/21/2023 7:47 AM BRADDER Carlos Guerrero MD LAB BLOOD ORDERABLES Final Re sult Performing Organization Address City/[facility]/ZIP Co de Phone Number OMER [phone] [facility] [place] [address] * (ABNORMAL) Lipid panel (12/12/2022 12:02 PM CDT) Triglyceride 260(H) 0 - 150 mg/dL [facility] Cholesterol 193 0 - 200 mg/dL [facility] HDL 65 >45 mg/dL [facility] LDL-Calculated 76 mg/dL [facility] CHOL/HDL Risk Ratio 3 Ratio [facility] LDL/HDL Risk Ratio 1 Ratio [facility] Blood 12/12/2022 12:0 2 PM CDT 12/12/2022 12:28 PM CDT Soumya Lockwood NP LAB BLOOD ORDERABLES F inal Result Performing Organization Address [facility] Co de Phone Number [facility] [address] [place] [address] * (ABNORMAL) Hemoglobin A1c (10/23/2022 7:37 AM CDT) Hgb A1C 6.9(H) 4.0 - 5.6 % [facility] MCCANN Estimated Average Glucose 151 mg/dL OMER MCCANN Comment: The ADA recommends reporting an estimated Average Glucose (eAG) with all Hemoglobin A1c results using the equation derived from a study of 507 normal and diabetic adults. Minority populations were underrepresented and children were not included. (Diabetes Care 31:5778-0774, 2008). The eAG is not equivalent to a fasting glucose. Blood 10/23/2022 7:37 AM CDT 10/23/2022 7:41 AM CDT Renae Nguyen MD LAB BLOOD ORDERABLES F inal Result Performing Organization Address City/[facility]/ZIP Co de Phone Number OMER [address] [facility] [place] [employer] [place] [address] * Albumin Creatinine Ratio, Urine (08/04/2021 10:41 AM CDT) Albumin Ur <12.0 mg/L [facility] Comment: Interpretive Data No reference range established. Current interpretive data was last revised 2018. Creatinine Ur 45.2 mg/dL [facility] Comment: Interpretive Data No reference range established. Current interpretive data was last revised 2018. Albumin Creatinine Ratio, Ur <27 1 - 29 mg/g [facility] Urine 08/04/2021 10:4 1 AM CDT 08/04/2021 11:08 AM CDT us Tia Medeiros MD LAB URINE ORDERABLES Final Result [facility] Department [place] [address] from Last 3 Months or Most Recently Relevant to Health Maintenance Insurance MEDICARE [facility] MEDICARE IDPA MEDICARE IDPA MEDICARE IDPA Advance Directives For more information, please contact: [phone] Documents on File Type Date Recorded Patient Chief Transfer And Pumphouse Operator Expl anation ADVANCE DIRECTIVE 02/22/2023 1:15 PM Shari ng Will ADVANCE DIRECTIVE 02/22/2023 1:14 PM Tima r of [employer] ADVANCE DIRECTIVE 12/05/2021 POLST - PH YS ORDER FOR PT PREFERENCES ADVANCE DIRECTIVE 07/11/2017 12:00 AM * LIMITED - No CPR (Latest Code Status on File) Date Activated Date Inactivated Comments 02/17/2023 11:24 PM 02/21/2023 7:04 PM Question Answer Comments Provide aggressive medical m anagement before a full cardiopulmonary arrest occurs. Use antibiotics, IV Fluids, and medical treatment unless specifically selected below: No intubation * Full Code Date Activated Date Inactivated Comments 02/17/2023 10:24 PM 02/17/2023 11:24 PM * LIMITED - No CPR Date Activated Date Inactivated Comments 08/05/2021 2:59 AM 08/05/2021 9:53 PM Question Answer Comments Provide aggressive medical m anagement before a full cardiopulmonary arrest occurs. Use antibiotics, IV Fluids, and medical treatment unless specifically selected below: No intubation Care Teams Captain Assistant Relationship Specialty Start Date End Date Soumya Lockwood NP [address] [place] [address] PCP - General Internal Medicine 12/06/22 Sony Martel MD Consulting Physician Infectious Diseases 03/06/19 Tia Medeiros MD [address] [place] [address] Consulting Physician Endocrinology Diabetes & Metabolism 12/12/22 Renny Maldonado MD [address] [place] [address] Consulting Physician Cardiovascular Disease 12/12/22 Hernandez Méndez DDS [address] [facility] [address] [place] [address] Oral Surgery 12/12/22 Stephie Mcintosh OD [address] [facility] OPHTHALMOLOGY, [address] [place] [address] Optometry 12/12/22 Leatha Landon MD [address] [facility] [address] [place] [address] Consulting Physician Otolaryngology 12/12/22 [place] [address] [place] [address] Psychology 12/12/22
--- OUTSIDE RECORDS SUMMARY | 2024-06-15 16:07 | XMS_ITS | Referral Summary ---
Author Organization [facility] Healthcare Address [address] [place] [address] Care Team Providers Care Singe Machine Operator Name Role Phone Sony Martel MD Unavailable [phone] Soumya Lockwood NP Primary Care Provider Tia Medeiros MD Unavailable [phone] Renny Maldonado MD Unavailable [phone] Hernandez Méndez DDS Unavailable [phone] Stephie Mcintosh OD Unavailable [phone] Leatha Landon MD Unavailable [phone] Ruel Lucio PhD Unavailable [phone] Allergies Active Allergy Reactions Criticality Noted Date Comments Cefuroxime Rash Medium 01/30/2021 Ciprofloxacin Hives,Rash Medium Clindamycin Hives Medium 01/30/2021 Bromocriptine Unknown,Itching Low 11/23/2010 Levofloxacin Other (See comments),Rash Medium 12/22/2012 Morphine Unknown 06/27/2007 Penicillins Rash,Unknown Medium 05/02/2006 Rash Quinolones Hives,Rash,Unknown,U rticaria High 07/14/2020 tendon tear Hives Aalcinp-Foq-Iiw Reductase Inhibitors Other (See comments) Low Reaction: Other Sulfa (Sulfonamide Antibiotics) Hives,Rash Medium 07/14/2020 Rash Tetracycline Unknown Low 04/06/2019 Warfarin Nausea only Low 07/29/2018 Medications lancets (onetouch ultrasoft) [facility] Check blood sugar twice daily E11.9 100 each 3 04/03/19 Active TROLAMINE SALICYLATE TOP Apply 1 Application topically 2 (two) times a day as needed for muscle/joint pain Active blood sugar diagnostic (ONETOUCH ULTRA BLUE TEST STRIP [facility]) OneTouch Ultra Blue Test Strip CHECK BS [...] Units total) by mouth daily Active coenzyme Q28-crzsawy E 100-5 mg-unit capsule Take 1 tablet [...] daily as needed for heartburn Active vit C,K-Nf-jcqwj-bela tein-zeaxan 250-90-40-1 mg capsule Take 1 capsule [...] 020 Assessment & Plan (03/20/2022 5:07 PM MANAGER OF DISTRIBUTION): pfats TID+ OU Assessment & Plan (11/23/2019 3:20 PM CDT): Continue preserv-free artificial tear, increase to QID. 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 ordered and gets that- every 6m - [facility] - DEXA: she will check - Colon [...] 08/24/2015 Diabetes mellitus type 2 in obese ([facility]) 06/11 Overview (06/21/2016): Type 2 diabetes mellitus [...] 02/18/2023 Assessment & Plan (01/22/2023 2:38 PM MANAGER OF DISTRIBUTION): - Keep all the following appts and followups, call with questions. - Coordination of Home care services and follow-up with specialist appointments confirmed. - Instructions have been provided to and reviewed with the patient/rn progressive care unit prior to discharge. Mood disturbance 11/16/2022 02/18/2023 Sleep disturbance 11/16/2022 02/18/2023 Fall injury while running 11/07/2022 Fall on board fishing boat 11/07/2022 1 04/21/2022 Bilateral pulmonary embolism 08/05/2021 12/05/2021 SOB (shortness of breath) 08/05/2021 Diabetes mellitus type 2 without retinopathy 2 06/04/2022 Assessment & Plan (03/20/2022 5:06 PM MANAGER OF DISTRIBUTION): Pt ed. Stressed BG control (HbA1C<7) to [...] 06/17/201701/2023 Low back pain 06/13/2017 02/18/2023 Hyperparathyroidism ([facility]/HCC) 07/08/2014 06/04/2022 Overview (06/21/2016): Hyperparathyroidism Skin callus [...] 07/14/2020,12/12/2013 ZOSTER LIVE 02/22/2015 ZOSTER Recombinant 07/16/2018,04/25/2018 Social History Tobacco Use Types Packs/Day Years Used Date Smoking Tobacco: Never Smokeless Tobacco: Never Tobacco Cessation:Counseling Given: Not Answered Alcohol Use Standard Drinks/Week Comments No 0 (1 standard drink = 0.6 oz pur e alcohol) [facility] Utilities Answer Date Recorded In the past 12 months has e [employer], gas, oil, or water [employer] threatened to shut off services in your [...] 02/18/2023 How often do you attend chur ch or druze services? More than 4 times per year 02/18/2023 Do you belong to any clubs o r organizations such as episcopalian groups, unions, fraternal or athletic groups, or [...] staff should administer the PHQ-9) 0 12/12/2022 [facility] - Occupational [...] place to sleep or slept in a fpc (including now)? No 02/18/2023 Personal Safety Answer Date Recorded Have you ever been in or are you currently in a harmful physical or emotional relationship or is someone making you feel afraid or unsafe? Denies 02/17/2023 Comments No Sex and Gender Information Value Date Recorded Sex Assigned at Not on file Legal Sex Female 8:21 PM MANAGER OF DISTRIBUTION Gender Identity Not on file Sexual Orientation Not on file Last Filed Vital Signs Vital Sign Reading Time Taken Comments Blood Pressure 109/96 02/21/2023 2:08 PM MANAGER OF DISTRIBUTION Pulse 69 02/21/2023 2:08 PM MANAGER OF DISTRIBUTION Temperature 36.5 C (97.7 F) 02/21/2023 12:07 PM MANAGER OF DISTRIBUTION Respiratory Rate 20 02/21/2023 12:07 PM MANAGER OF DISTRIBUTION Oxygen Saturation 97% 02/21/2023 12:07 PM MANAGER OF DISTRIBUTION Inhaled Oxygen Concentration - - Weight 78.2 kg (172 lb 6.4 oz) 02/21/2023 5:59 A M MANAGER OF DISTRIBUTION Height 157.5 cm (5' 2 ) 02/19/2023 8:20 AM MANAGER OF DISTRIBUTION Body Mass Index 31.53 02/19/2023 8:20 AM MANAGER OF DISTRIBUTION Plan of Treatment Not on file Procedures Procedure Name Priority Date/Time Associated Diagnosis Comments EGFR Routine 02/21/2023 6:43 AM MANAGER OF DISTRIBUTION LIPID PANEL Routine 12/12/2022 12:02 PM CDT Medicare annual wellness visit, subsequent Hyperlipidemia, unspecified hyperlipidemia type HEMOGLOBIN A1C Routine 10/23/2022 7:37 AM CDT Diabetes mellitus type 2 in obese (CMS/HCC) (HCC) ALBUMIN CREATININE RATIO, URINE Routine 08/04/2021 10:41 AM CDT Diabetes mellitus type 2 in obese (CMS/HCC) (HCC) Hyperlipidemia, unspecified hyperlipidemia type Vitamin D deficiency Hyperparathyroidism Shortness of breath from Last 3 Months or Most Recently Relevant to Health Maintenance Results * eGFR (02/21/2023 6:43 AM MANAGER OF DISTRIBUTION) eGFR 44 mL/min/1. 73 m2 OMER Comment: [...] last reviewed 2021. Blood 02/21/2023 6:43 AM MANAGER OF DISTRIBUTION 02/21/2023 7:47 AM MANAGER OF DISTRIBUTION us Carlos Guerrero MD LAB BLOOD ORDERABLES Final Re sult [facility] [address] [facility] Department [place] [address] * (ABNORMAL) Lipid panel (12/12/2022 12:02 PM CDT) Triglyceride 260(H) 0 - 150 mg/dL [facility] Cholesterol 193 0 - 200 mg/dL [facility] HDL 65 >45 mg/dL [facility] LDL-Calculated 76 mg/dL [facility] CHOL/HDL Risk Ratio 3 Ratio [facility] LDL/HDL Risk Ratio 1 Ratio [facility] Blood 12/12/2022 12:0 2 PM CDT 12/12/2022 12:28 PM CDT us Soumya Lockwood NP LAB BLOOD ORDERABLES F inal Result [facility] [address] [place] [address] * (ABNORMAL) Hemoglobin A1c (10/23/2022 7:37 AM CDT) Hgb A1C 6.9(H) 4.0 - 5.6 % OMER Estimated Average Glucose 151 mg/dL OMER Comment: The ADA recommends reporting an estimated Average Glucose (eAG) with all Hemoglobin A1c results using the equation derived from a study of 507 normal and diabetic adults. Minority populations were underrepresented and children were not included. (Diabetes Care 31:0727-7770, 2008). The eAG is not equivalent to a fasting glucose. Blood 10/23/2022 7:37 AM CDT 10/23/2022 7:41 AM CDT us Renae Nguyen MD LAB BLOOD ORDERABLES F inal Result [facility] [address] [facility] Department [place] [address] * Albumin Creatinine Ratio, Urine (08/04/2021 10:41 AM CDT) Albumin Ur <12.0 mg/L [facility] Comment: Interpretive Data No reference range established. Current interpretive data was last revised 2018. Creatinine Ur 45.2 mg/dL [facility] Comment: Interpretive Data No reference range established. Current interpretive data was last revised 2018. Albumin Creatinine Ratio, Ur <27 1 - 29 mg/g [facility] Urine 08/04/2021 10:4 1 AM CDT 08/04/2021 11:08 AM CDT us Tia Medeiros MD LAB URINE ORDERABLES Final Result [facility] [address] [facility] [place] [address] from Last 3 Months or Most Recently Relevant to Health Maintenance Insurance MEDICARE IDPA MEDICARE ID[place] [address] MEDICARE IDPA Advance Directives For more information, please contact: [phone] Documents on File Type Date Recorded Patient Gold And Silver Assayer Expl anation ADVANCE DIRECTIVE 02/22/2023 1:15 PM Shari yeung Will ADVANCE DIRECTIVE 02/22/2023 1:14 PM Tima r of [employer] ADVANCE DIRECTIVE 12/05/2021 POLST - PH YS [...] specifically selected below: No intubation Care Teams Singe Machine Operator Relationship Specialty Start Date End Date Soumya Lockwood NP [address] [place] [address] PCP - General Internal Medicine 12/06/22 Sony Martel MD Consulting Physician Infectious Diseases 03/06/19 Tia Medeiros MD [address] [place] [address] Consulting Physician Endocrinology Diabetes & Metabolism 12/12/22 Renny Maldonado MD [address] [address] Consulting Physician Cardiovascular Disease 12/12/22 Hernandez Méndez DDS [address] [facility] [address] [place] [address] Oral Surgery 12/12/22 Stephie Mcintosh, OD [address] [facility] DEPT OPHTHALMOLOGY, [address] [place] [id number] Optometry 12/12/22 Leatha Landon MD [address] [place] [address] Consulting Physician Otolaryngology 12/12/22 [place] [address] [place] [address] Psychology 12/12/22
--- OUTSIDE RECORDS SUMMARY | 2024-06-15 16:07 | XMS_ITS | Clinical Summary ---
Author Organization [facility] Address [address] [place] [address] Care Team Providers Care Cps Team Lead Name Role Phone Ramsey Peguero MD Primary Care Provider [phone] Source Comments [facility],non-owned Affiliates and Associated Physician Practices is amultiple site organization consisting of ambulatory clinics and hospital sitesin [place], [place], [place] and [place]. This disclosure is being madepursuant to the Care Everywhere program and may not contain all information available regarding this patient. Last updated 17.[facility] Allergies Active Allergy Reactions Criticality Noted Date [...] daily Active Calcium Carbonate-Vit D-Min (CALCIUM 1200) 0235-3639 MG-UNIT CHEW Take 1 tablet by mouth [...] VACCINE (3 - season) 2023 04/18/2020, 03/28/2020 DEPRESSION SCREENING 03/11/2024 INFLUENZA VACCINE (Season Ended) 2024 12/10/2019, 12/16/2018, 11/27/2017, Additional history exists HEPATITIS B VACCINE Aged Out No longe [...] age to complete this topic Care Teams Cps Team Lead Relationship Specialty Start Date End Date Ramsey Peguero MD [address] [facility] [address] [place] [address] PCP - General 04/10/10
--- OUTSIDE RECORDS SUMMARY | 2024-06-15 16:07 | XMS_ITS | Encounter Summary ---
Author Organization [facility] Healthcare Address [address] [place] [address] Care Team Providers Care Energy Control Officer Name Role Phone Sony Martel MD Unavailable [phone] Ramsey Peguero MD Primary Care Provider [phone] Reason for Visit * Diagnostic Imaging (Routine) - Closed Specialty Diagnoses / Procedures Referred By Contac t Referred To Contact Procedures Breast Imaging Screening Outside Reference Referral, Self Referral ID Status Reason Start Date Expiration Date Visits Re quested Visits Authorized [id number] Closed 11/15/2021 12/15/2022 1 1 Encounter Details Date Type Department Care Team (Late st Contact Info) Description 04/13/2019 Hospital Encounter [facility] [address] [place] [id number] Social History Tobacco Use Types Packs/Day Years Used Date Smoking Tobacco: Never Smokeless Tobacco: Never Alcohol Use Standard Drinks/Week Comments No 0 (1 standard drink = 0.6 oz pur e alcohol) [facility] Utilities Answer Date Recorded In the past 12 months has e [employer], gas, oil, or water [employer] threatened to shut off services in your [...] often do you attend chur ch or yarsanism services? More than 4 times per year 02/18/2023 Do you belong to any clubs o r organizations such as druze groups, unions, fraternal or athletic groups, or [...] staff should administer the PHQ-9) 0 12/12/2022 [facility] Occup[facility] - Occupational Stress [...] place to sleep or slept in a care home (including now)? No 02/18/2023 Personal Safety Answer Date Recorded Have you ever been in or are you currently in a harmful physical or emotional relationship or is someone making you feel afraid or unsafe? Denies 02/17/2023 Comments No Sex and Gender Information Value Date Recorded Sex Assigned at Not on file Legal Sex Female 8:21 PM PHOTOGRAMMETRIC COMPILATION SPECIALIST Gender Identity Not on file Sexual Orientation [...] partner or ex-partner? No 12/12/2022 11:46 AM CDOneil Jordan NP Within the last year, have y ou been raped or forced to have any kind of sexual activity by your partner or ex-partner? No 12/12/2022 11:46 AM Soumya Corrales NP Within the last year, have y ou been kicked, hit, slapped, or otherwise physically hurt by your partner or ex-partner? No 12/12/2022 11:46 AM Soumya Corrales NP * Question Answer Date of Assessment [...] BREAST IMAGING MG SCREENING OUTSIDE REFERENCE Routine 04/13/2019 12:00 AM PHOTOGRAMMETRIC COMPILATION SPECIALIST documented in this encounter Results * Breast Imaging Screening Outside Reference (04/13/2019 12:00 AM PHOTOGRAMMETRIC COMPILATION SPECIALIST) Impressions [facility] - 11/15/2021 2:02 PM CDT These images are for Reference purposes only and have not been reviewed by [facility] Radiology. There will be no report generated by a [facility] Radiologist. Narrative [facility] - 11/15/2021 2:02 PM CDT EXAMINATION: Images For Reference Purposes Only us Self Referral IMG MAMMO PROCEDURES Final Resul t [facility] documented in this encounter Visit Diagnoses Not on filedocumented in this encounter Care Teams Energy Control Officer Relationship Specialty Start Date End Date Ramsey Peguero MD [address] [facility] [address] [address] [place] [address] PCP - General Internal Medicine 04/06/19 07/13/20 Sony Martel MD Consulting Physician Infectious Diseases 03/06/19 documented as of this encounter
[2024-06-15 16:56] LABS: Basophils Absolute Auto 0.1 K/mm3 (0.0-0.1); Basophils Percent Auto 0.7 % (0.2-1.2); Eosinophils Absolute Auto 0.2 K/mm3 (0-0.3); Eosinophils Percent Auto 1.5 % (0-4.4); Hematocrit 37.2 % (37.0-47.0); Hemoglobin 11.6 g/dL (12.0-15.0); Immature Granulocyte Absolute 0.11 K/mm3 (0.00-0.031); Immature Granulocyte Percent A 1.1 % (0-0.5); Lymphocytes Absolute Auto 1.53 K/mm3 (0.9-3.2); Mean Corpuscular HGB Conc 31.2 g/dl (32-36); Mean Corpuscular Hemoglobin 26.9 pg (26-34); Mean Corpuscular Volume 86.1 fl (80-100); Mean Platelet Volume 9.4 fl (7.4-10.4); Monocytes Absolute Auto 0.7 K/mm3 (0.1-0.6); Monocytes Percent Auto 7.1 % (2.6-8.5); Neutrophils Absolute Auto 7.6 K/mm3 (1.3-6.7); Neutrophils Percent Auto 74.6 % (45.5-73.1); Platelet Count Result 364 k/mm3 (150-375); Red Blood Count 4.32 M/mm3 (4.2-5.4); Red Cell Distribution Width 15.2 % (11.5-14.5); White Blood Count 10.2 K/mm3 (4.5-10.0)
[2024-06-15 17:06] LABS: Alanine Aminotransferase 21 U/L (6-35); Albumin Level 3.6 g/dL (3.5-5.1); Alkaline Phosphatase 181 U/L (38-126); Anion Gap 12 mmol/L (4-12); Aspartate Amino Transferase 16 U/L (14-36); Bilirubin,Total 0.2 mg/dL (0.2-1.3); Blood Urea Nitrogen 24 mg/dL (7-17); Calcium 6.6 mg/dL (8.4-10.2); Carbon Dioxide 23 mmol/L (22-30); Chloride 101 mmol/L (98-107); Estimated CRCL calculation 39 ml/min; Estimated Glomerular Filt Rate 56; Glucose 212 mg/dL (65-110); Potassium 4.6 mmol/L (3.4-5.0); Sodium 136 mmol/L (137-145)
[2024-06-15] MEDS: PANTOPRAZOLE SODIUM IV 40 MG VIAL IV PUSH (17:07)
[2024-06-15 17:12] LABS: Partial Thromboplastin Time 25.8 Seconds (22.3-36.8)
[2024-06-15 17:22] LABS: INR 1.1; Prothrombin Time 14.3 Seconds (11.1-14.7)
--- OUTSIDE RECORDS SUMMARY | 2024-06-15 18:06 | XMS_ITS | Encounter Summary ---
Author Organization [facility] Healthcare Address [address] [place] [address] Care Team Providers Care Director Of Analytics Name Role Phone Ramsey Peguero MD Primary Care Provider + [phone] Meera Arredondo SYSTEMS DESIGNER Primary Care Provi marjorie Sony Martel MD Unavailable [phone] Ramsey Peguero MD Primary Care Provider + [phone] Ximena Kulkarni MD Primary Care Provider [phone] Ramsey Peguero MD Primary Care Provider + [phone] Renae Nguyen MD Primary Care Provider Soumya Lockwood SYSTEMS DESIGNER Primary Care Provider Tia Medeiros MD Unavailable [phone] Renny Maldonado MD Unavailable +[phone] Hernandez Méndez DDS Unavailable +[phone] Stephie Mcintosh OD Unavailable [phone] Leatha Landon MD Unavailable [phone] Ruel Lucio PhD Unavailable [phone] Encounter Details Date Type Department Care Team (Late st Contact Info) Description 12/10/2017 Community Orders [facility] EpicCare Link Ricky Sears MD [address] [place] [address] Social History Tobacco Use Types Packs/Day Years Used Date Smoking Tobacco: Never Alcohol Use Standard Drinks/Week Comments No 0 (1 standard drink = 0.6 oz pur e alcohol) Comments Unknown Sex and Gender Information Value Date Recorded Sex Assigned at Not on file Legal Sex Female 8:21 PM SUPERVISOR RIDE ASSEMBLY Gender Identity Not on file Sexual Orientation Not on file documented as of this encounter Plan of Treatment Not on file documented as of this encounter Visit Diagnoses Not on filedocumented in this encounter Care Teams Director Of Analytics Relationship Specialty Start Date End Date Ramsey Peguero MD [address] [place] [address] PCP - General 07/08/17 11/30/18 Meera Arredondo NP [address] [place] [address] PCP - General 12/01/18 04/05/19 Ramsey Peguero MD [address] [place] [address] PCP - General Internal Medicine 04/06/19 07/13/20 Ximena Kulkarni MD [address] [facility] [address] [address] PCP - General 07/14/20 10/16/20 Ramsey Peguero MD [address] [place] [address] PCP - General Internal Medicine 10/17/20 07/04/21 Renae Nguyen MD [address] [place] [address] PCP - General Internal Medicine 07/05/21 12/05/22 Soumya Lockwood, TYLER [address] [place] [address] PCP - General Internal Medicine 12/06/22 Sony Martel MD [address] [place] [address] [address] [place] [address] Consulting Physician Infectious Diseases 03/06/19 Tia Medeiros MD [address] [place] [address] Consulting Physician Endocrinology Diabetes & Metabolism 12/12/22 Renny Maldonado MD [address] [place] [address] Consulting Physician Cardiovascular Disease 12/12/22 Hernandez Méndez DDS [address] [facility] [address] [place] [address] Oral Surgery 12/12/22 Stephie Mcintosh, TALA [address] [facility], [address] [place] [address] Optometry 12/12/22 Leatha Landon MD [address] [facility] [address] [place] [address] Consulting Physician Otolaryngology 12/12/22 [place] [address] [place] [address] Psychology 12/12/22 documented as of this encounter
--- OUTSIDE RECORDS SUMMARY | 2024-06-15 18:06 | XMS_ITS | Encounter Summary ---
Author Organization [facility] Healthcare Address [address] [place] [address] Care Team Providers Care Director Of Global Sales Name Role Phone Unavailable Primary Care Provider Unavailabl e Reason for Visit * Diagnostic Imaging (Routine) - Closed Specialty Diagnoses / Procedures Referred By Mitchell aceves Referred To Contact Procedures Breast Imaging Screening Outside Reference Referral, Self Referral ID Status Reason Start Date Expiration Date Visits Re quested Visits Authorized [id number] Closed 11/15/2021 12/15/2022 1 1 Encounter Details Date Type Department Care Team (Late st Contact Info) Description 11/20/2011 Hospital Encounter [facility] [address] [place] [address] Social History Tobacco Use Types Packs/Day Years Used Date Smoking Tobacco: Never Smokeless Tobacco: Never Alcohol Use Standard Drinks/Week Comments No 0 (1 standard drink = 0.6 oz pur e alcohol) [facility] Utilities Answer Date Recorded In the past 12 months has [facility] [employer], gas, oil, or water [employer] threatened to shut off services in your [...] week 02/18/2023 How often do you attend [facility] or holiness services? More than 4 times per year 02/18/2023 Do you belong to any clubs o r organizations such as zoroastrian groups, unions, fraternal or athletic groups, or [...] staff should administer the PHQ-9) 0 12/12/2022 [facility] of Occupat ional Health - Occupational [...] place to sleep or slept in a long term (including now)? No 02/18/2023 Personal Safety Answer Date Recorded Have you ever been in or are you currently in a harmful physical or emotional relationship or is someone making you feel afraid or unsafe? 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 There will be no report generated by a [facility] Radiologist. Narrative [facility]_MAMMO[facility] - 11/15/2021 2:02 PM CDT EXAMINATION: Images For Reference Purposes Only us Self Referral IMG MAMMO PROCEDURES Final Resul t [facility] documented in this encounter Visit Diagnoses Not on filedocumented in this encounter
--- OUTSIDE RECORDS SUMMARY | 2024-06-15 18:06 | XMS_ITS | Encounter Summary ---
Author Organization [facility] Healthcare Address [address] [place] [address] Care Team Providers Care Hooker Machine Tender Name Role Phone Sony Martel MD Unavailable [phone] Ramsey Peguero MD Primary Care Provider [phone] Reason for Visit * Diagnostic Imaging (Routine) - Closed Specialty Diagnoses / Procedures Referred By Contac t Referred To Contact Procedures Breast Imaging Screening Outside Reference Referral, Self Referral ID Status Reason Start Date Expiration Date Visits Re quested Visits Authorized [id number] Closed 11/15/2021 12/15/2022 1 1 Encounter Details Date Type Department Care Team (Late st Contact Info) Description 04/13/[address] [facility] [address] [place] [address] Social History Tobacco Use Types Packs/Day Years Used Date Smoking Tobacco: Never Smokeless Tobacco: Never Alcohol Use Standard Drinks/Week Comments No 0 (1 standard drink = 0.6 oz pur e alcohol) [facility] Utilities Answer Date Recorded In the past 12 months has e [employer], gas, oil, or water [employer] threatened to shut off services in your [...] often do you attend chur ch or mu-ism services? More than 4 times per year 02/18/2023 Do you belong to any clubs o r organizations such as mu-ism groups, unions, fraternal or athletic groups, or [...] should administer the PHQ-9) 0 12/12/2022 [facility] of Occupat ional Health - Occupational Stress [...] on file Legal Sex Female 8:21 PM HOLE DIGGER Gender Identity Not on file Sexual Orientation [...] SCREENING OUTSIDE REFERENCE Routine 04/13/2019 12:00 AM HOLE DIGGER documented in this encounter Results * Breast Imaging Screening Outside Reference (04/13/2019 12:00 AM HOLE DIGGER) Impressions [facility] - 11/15/2021 2:02 PM CDT These images are for Reference purposes only and have not been reviewed by [facility] Radiology. There will be no report generated by a [facility] Radiologist. Narrative [facility]MAMMO[facility] - 11/15/2021 2:02 PM CDT EXAMINATION: Images For Reference Purposes Only us Self Referral IMG MAMMO PROCEDURES Final Resul t [facility] documented in this encounter Visit Diagnoses Not on filedocumented in this encounter Care Teams Hooker Machine Tender Relationship Specialty Start Date End Date Ramsey Peguero MD [address] [facility] [address] [place] [address] PCP - General Internal Medicine 04/06/19 07/13/20 Sony Martel MD Consulting Physician Infectious Diseases 03/06/19 documented as of this encounter
--- OUTSIDE RECORDS SUMMARY | 2024-06-15 18:06 | XMS_ITS | Encounter Summary ---
Author Organization [facility] Health Address [address] [place] [address] Care Team Providers Care Electronic Sales And Service Technician Name Role Phone Ramsey Peguero MD Primary Care Provider [phone] Encounter Details Date Type Department Care Team (Late st Contact Info) Description 11/17/2020 [facility] Outpatient Visit EXTERNAL NON-[facility] DEPT Geovanna Cardenas, PhD [facility] [address] Social History Tobacco Use Types Packs/Day Years [...] on filedocumented in this encounter Care Teams Electronic Sales And Service Technician Relationship Specialty Start Date End Date Ramsey Peguero MD [address] [facility] [address] [place] [address] PCP - General 04/10/10 documented as of this encounter
--- OUTSIDE RECORDS SUMMARY | 2024-06-15 18:06 | XMS_ITS | Encounter Summary ---
Author Organization [facility] Address [address] [place] [address] Phone Care Team Providers Care Photo Mask Cleaner Name Role Phone Unknown, Notinfile Primary Care Provider Unavail able Unknown, Notinfile Primary Care Provider Unavail able Ramsey Peguero MD Primary Care Provider + [phone] Meera Arredondo SHOE CASER Primary Care Provi marjorie Sony Martel MD Unavailable [phone] Ramsey Peguero MD Primary Care Provider + [phone] Ximena Kulkarni MD Primary Care Provider [phone] Ramsey Peguero MD Primary Care Provider + [phone] Renae Nguyen MD Primary Care Provider Soumya Lockwood SHOE CASER Primary Care Provider Tia Medeiros MD Unavailable [phone] Renny Maldonado MD Unavailable [phone] Hernandez Méndez DDS Unavailable [phone] Stephie Mcintosh OD Unavailable [phone] Leatha Landon MD Unavailable [phone] Ruel Lucio PhD Unavailable [phone] Encounter [...] on file Legal 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 Gender Identity Not on file Sexual Orientation [...] on filedocumented in this encounter Care Teams Photo Mask Cleaner Relationship Specialty Start Date End Date Unknown, Notinfile PCP - General 06/25/17 07/02/17 Unknown, Notinfile PCP - General 07/03/17 07/07/17 Ramsey Peguero MD [address] [place] [address] PCP - General 07/08/17 11/30/18 Meera Arredondo NP [address] [place] [address] PCP - General 12/01/18 04/05/19 Ramsey Peguero MD [address] [place] [address] PCP - General Internal Medicine 04/06/19 07/13/20 Ximena Kulkarni MD [address] [address] PCP - General 07/14/20 10/16/20 Ramsey Peguero MD [address] [place] [address] PCP - General Internal Medicine 10/17/20 07/04/21 Renae Nguyen MD [address] [place], [place] [id number] PCP - General Internal Medicine 07/05/21 12/05/22 Soumya Lockwood, TYLER [address] [place], [place] [id number] PCP - General Internal Medicine 12/06/22 Sony Martel MD [address] [facility] [address] [place] [address] Consulting Physician Infectious Diseases 03/06/19 Tia Medeiros MD [address] [place] [address] Consulting Physician Endocrinology Diabetes & Metabolism 12/12/22 Renny Maldonado MD [address] [place] [address] Consulting Physician Cardiovascular Disease 12/12/22 Hernandez Méndez DDS [address] [place] [address] Oral Surgery 12/12/22 Stephie Mcintosh, TALA [address] [facility], [address] [place] [address] Optometry 12/12/22 Leatha Landon MD [address] [place] [address] Consulting Physician Otolaryngology 12/12/22 [place] [address] [facility] [place] [address] Psychology 12/12/22 documented as of this encounter
--- OUTSIDE RECORDS SUMMARY | 2024-06-15 18:06 | XMS_ITS | Clinical Summary ---
Author Organization [facility] Address [address] [place] [address] Care Team Providers Care Care Program Director Name Role Phone Ramsey Peguero MD Primary Care Provider [phone] Source Comments [facility],non-owned Affiliates and Associated Physician Practices is amultiple site organization consisting of ambulatory clinics and hospital sitesin [place], [place], [place] and [place]. This disclosure is being madepursuant to the Care Everywhere program and may not contain all information available regarding this patient. Last updated 17.[facility] Allergies Active Allergy Reactions Criticality Noted Date [...] daily Active Calcium Carbonate-Vit D-Min (CALCIUM 1200) 7426-2453 MG-UNIT CHEW Take 1 tablet by mouth [...] age to complete this topic Care Teams Care Program Director Relationship Specialty Start Date End Date Ramsey Peguero MD [address] [facility] [address] [place] [address] PCP - General 04/10/10
--- OUTSIDE RECORDS SUMMARY | 2024-06-15 18:06 | XMS_ITS | Encounter Summary ---
Author Organization [facility] Healthcare Address [address] [place] [address] Care Team Providers Care Slunk Skinner Name Role Phone Ramsey Peguero MD Primary Care Provider [phone] Reason for Visit * Diagnostic Imaging (Routine) - Closed Specialty Diagnoses / Procedures Referred By Mitchell aceves Referred To Contact Procedures Breast Imaging Diagnostic Outside Reference Referral, Self Referral ID Status Reason Start Date Expiration Date Visits Re quested Visits Authorized [id number] Closed 11/15/2021 12/15/2022 1 1 Encounter Details Date Type Department Care Team (Late st Contact Info) Description 06/21/2014 Hospital Encounter [facility] [address] [place] [address] Social History Tobacco Use Types Packs/Day Years Used Date Smoking Tobacco: Never Smokeless Tobacco: Never Alcohol Use Standard Drinks/Week Comments No 0 (1 standard drink = 0.6 oz pur e alcohol) [facility] Utilities Answer Date Recorded In the past 12 months has [facility] [employer] gas, oil, or water [employer] threatened to shut off services in your [...] How often do you attend chur or mandaeism services? More than 4 times per year 02/18/2023 Do you belong to any clubs o r organizations such as bahai groups, unions, fraternal or athletic groups, or [...] staff should administer the PHQ-9) 0 12/12/2022 [facility] [place] of Occupat ional Health - Occupational Stress [...] place to sleep or slept in a penitentiary (including now)? No 02/18/2023 Personal Safety Answer Date Recorded Have you ever been in or are you currently in a harmful physical or emotional relationship or is someone making you feel afraid or unsafe? Denies 02/17/2023 Comments No Sex and Gender Information Value Date Recorded Sex Assigned at Not on file Legal Sex Female 8:21 PM SAILOR Gender Identity Not on file Sexual Orientation Not on file documented as of this encounter Functional Status * Audit-C Score Answer Date of Assessment Author 0 12/12/2022 11:46 AM oSumya Corrales NP * Intimate Partner Violence Question [...] and have not been reviewed by [facility] Radiology. There will be no report generated by a [facility] Radiologist. Narrative [facility]MO[facility] - 11/15/2021 2:02 PM CDT EXAMINATION: Images For Reference Purposes Only us Self Referral IMG MAMMO PROCEDURES Final Resul t [facility] documented in this encounter Visit Diagnoses Not on filedocumented in this encounter Care Teams Slunk Skinner Relationship Specialty Start Date End Date Ramsey Peguero MD [address] [address] PCP - General 09/02/13 06/05/17 documented as of this encounter
--- OUTSIDE RECORDS SUMMARY | 2024-06-15 18:06 | XMS_ITS | Referral Summary ---
Author Organization [facility] Healthcare Address [address] [place] [address] Care Team Providers Care Lead Caregiver Name Role Phone Sony Martel MD Unavailable [phone] Soumya Lockwood NP Primary Care Provider Tia Medeiros MD Unavailable [phone] Renny Maldonado MD Unavailable [phone] Hernandez Méndez DDS Unavailable [phone] Stephie Mcintosh OD Unavailable [phone] Leatha Landon MD Unavailable Ruel Lucio PhD Unavailable [phone] Allergies Active Allergy Reactions Criticality Noted Date Comments Cefuroxime Rash Medium 01/30/2021 Ciprofloxacin Hives,Rash Medium Clindamycin Hives Medium 01/30/2021 Bromocriptine Unknown,Itching Low 11/23/2010 Levofloxacin Other (See comments),Rash Medium 12/22/2012 Morphine Unknown 06/27/2007 Penicillins Rash,Unknown Medium 05/02/2006 Rash Quinolones Hives,Rash,Unknown,U rticaria High 07/14/2020 tendon tear Hives Ugtbnsg-Dxj-Woa Reductase Inhibitors Other (See comments) Low Reaction: Other Sulfa (Sulfonamide Antibiotics) Hives,Rash Medium 07/14/2020 Rash Tetracycline Unknown Low 04/06/2019 Warfarin Nausea only Low 07/29/2018 Medications lancets (onetouch ultrasoft) [facility] Check blood sugar twice daily E11.9 100 each 3 04/03/19 Active TROLAMINE SALICYLATE TOP Apply 1 Application topically 2 (two) times a day as needed for muscle/joint pain Active blood sugar diagnostic (ONETOUCH ULTRA BLUE TEST STRIP [facility]) OneTouch Ultra Blue Test Strip CHECK BS [...] Units total) by mouth daily Active coenzyme Q77-fjojvid E 100-5 mg-unit capsule Take 1 tablet [...] daily as needed for heartburn Active vit C,T-Hj-ajery-bela tein-zeaxan 250-90-40-1 mg capsule Take 1 capsule [...] 020 Assessment & Plan (03/20/2022 5:07 PM PICKED EDGE SEWING MACHINE OPERATOR): pfats TID+ OU Assessment & Plan (11/23/2019 3:20 PM CDT): Continue preserv-free artificial tear, increase to QID. 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 cards ordered and gets that- every 6m - [facility] - DEXA: she will check - [...] 08/24/2015 Diabetes mellitus type 2 in obese ([facility]) 06/11 Overview (06/21/2016): Type 2 diabetes mellitus [...] 02/18/2023 Assessment & Plan (01/22/2023 2:38 PM PICKED EDGE SEWING MACHINE OPERATOR): - Keep all the following appts and followups, call with questions. - Coordination of Home care services and follow-up with specialist appointments confirmed. - Instructions have been provided to and reviewed with the patient/memory care program director prior to discharge. Mood disturbance 11/16/2022 02/18/2023 Sleep disturbance 11/16/2022 02/18/2023 Fall injury while running 11/07/2022 Fall on board fishing boat 11/07/2022 1 04/21/2022 Bilateral pulmonary embolism 08/05/2021 12/05/2021 SOB (shortness of breath) 08/05/2021 Diabetes mellitus type 2 without retinopathy 2 06/04/2022 Assessment & Plan (03/20/2022 5:06 PM PICKED EDGE SEWING MACHINE OPERATOR): Pt ed. Stressed BG control (HbA1C<7) to [...] 06/17/201701/2023 Low back pain 06/13/2017 02/18/2023 Hyperparathyroidism ([facility]/HCC) 07/08/2014 06/04/2022 Overview (06/21/2016): Hyperparathyroidism Skin callus [...] drink = 0.6 oz pur e alcohol) [facility] Utilities Answer Date Recorded In the past 12 months has e Desk, gas, oil, or water [employer] threatened to shut off services in your [...] often do you attend chur ch or voodoo services? More than 4 times per year 02/18/2023 Do you belong to any clubs o r organizations such as mandaeism groups, unions, fraternal or athletic groups, or [...] staff should administer the PHQ-9) 0 12/12/2022 [facility] - Occupational [...] place to sleep or slept in a snf (including now)? No 02/18/2023 Personal Safety Answer Date Recorded Have you ever been in or are you currently in a harmful physical or emotional relationship or is someone making you feel afraid or unsafe? Denies 02/17/2023 Comments No Sex and Gender Information Value Date Recorded Sex Assigned at Not on file Legal Sex Female 8:21 PM PICKED EDGE SEWING MACHINE OPERATOR Gender Identity Not on file Sexual Orientation Not on file Last Filed Vital Signs Vital Sign Reading Time Taken Comments Blood Pressure 109/96 02/21/2023 2:08 PM PICKED EDGE SEWING MACHINE OPERATOR Pulse 69 02/21/2023 2:08 PM PICKED EDGE SEWING MACHINE OPERATOR Temperature 36.5 C (97.7 F) 02/21/2023 12:07 PM PICKED EDGE SEWING MACHINE OPERATOR Respiratory Rate 20 02/21/2023 12:07 PM PICKED EDGE SEWING MACHINE OPERATOR Oxygen Saturation 97% 02/21/2023 12:07 PM PICKED EDGE SEWING MACHINE OPERATOR Inhaled Oxygen Concentration - - Weight 78.2 kg (172 lb 6.4 oz) 02/21/2023 5:59 A M PICKED EDGE SEWING MACHINE OPERATOR Height 157.5 cm (5' 2 ) 02/19/2023 8:20 AM PICKED EDGE SEWING MACHINE OPERATOR Body Mass Index 31.53 02/19/2023 8:20 AM PICKED EDGE SEWING MACHINE OPERATOR Plan of Treatment Not on file Procedures Procedure Name Priority Date/Time Associated Diagnosis Comments EGFR Routine 02/21/2023 6:43 AM PICKED EDGE SEWING MACHINE OPERATOR LIPID PANEL Routine 12/12/2022 12:02 PM CDT [...] Maintenance Results * eGFR (02/21/2023 6:43 AM PICKED EDGE SEWING MACHINE OPERATOR) eGFR 44 mL/min/1. 73 m2 [facility] Comment: [...] last reviewed 2021. Blood 02/21/2023 6:43 AM PICKED EDGE SEWING MACHINE OPERATOR 02/21/2023 7:47 AM PICKED EDGE SEWING MACHINE OPERATOR us Carlos Guerrero MD LAB BLOOD ORDERABLES Final Re sult [facility] [address] [facility] [place] [address] * (ABNORMAL) Lipid panel (12/12/2022 12:02 PM CDT) Triglyceride 260(H) 0 - 150 mg/dL [facility] Cholesterol 193 0 - 200 mg/dL [facility] HDL 65 >45 mg/dL [facility] LDL-Calculated 76 mg/dL [facility] CHOL/HDL Risk Ratio 3 Ratio [facility] LDL/HDL Risk Ratio 1 Ratio [facility] Blood 12/12/2022 12:0 2 PM CDT 12/12/2022 12:28 PM CDT us Soumya Lockwood NP LAB BLOOD ORDERABLES F inal Result [facility] [address] [place] [address] * (ABNORMAL) Hemoglobin A1c (10/23/2022 7:37 AM CDT) Hgb A1C 6.9(H) 4.0 - 5.6 % [facility] Estimated Average Glucose 151 mg/dL [facility] Comment: The ADA recommends reporting an estimated Average Glucose (eAG) with all Hemoglobin A1c results using the equation derived from a study of 507 normal and diabetic adults. Minority populations were underrepresented and children were not included. (Diabetes Care 31:0309-2386, 2008). The eAG is not equivalent to a fasting glucose. Blood 10/23/2022 7:37 AM CDT 10/23/2022 7:41 AM CDT us Renae Nguyen MD LAB BLOOD ORDERABLES F inal Result [facility] [address] [facility] [place] [address] * Albumin Creatinine Ratio, Urine (08/04/2021 10:41 AM CDT) Albumin Ur <12.0 mg/L [facility] Comment: Interpretive Data No reference range established. Current interpretive data was last revised 2018. Creatinine Ur 45.2 mg/dL [facility] Comment: Interpretive Data No reference range established. Current interpretive data was last revised 2018. Albumin Creatinine Ratio, Ur <27 1 - 29 mg/g [facility] Urine 08/04/2021 10:4 1 AM CDT 08/04/2021 11:08 AM CDT us Tia Medeiros MD LAB URINE ORDERABLES Final Result [facility] Department [place] [address] from Last 3 Months or Most Recently Relevant to Health Maintenance Insurance MEDICARE IDPA MEDICARE IDPA [place] [address] MEDICARE IDPA Advance Directives For more information, please contact: [phone] Documents on File Type Date Recorded Patient Photoradio Operator Expl anation ADVANCE DIRECTIVE 02/22/2023 1:15 PM hSari yeung Will ADVANCE DIRECTIVE 02/22/2023 1:14 PM Tima r of Senior Gl Accountant-Medical ADVANCE DIRECTIVE 12/05/2021 [facility] - PH YS [...] specifically selected below: No intubation Care Teams Lead Caregiver Relationship Specialty Start Date End Date Soumya Lockwood NP [address] [place] [address] PCP - General Internal Medicine 12/06/22 Sony Martel MD Consulting Physician Infectious Diseases 03/06/19 Tia Medeiros MD [address] [place] [address] Consulting Physician Endocrinology Diabetes & Metabolism 12/12/22 Renny Maldonado MD [address] [address] Consulting Physician Cardiovascular Disease 12/12/22 Hernandez Méndez DDS [address] [place] [address] Oral Surgery 12/12/22 Stephie Mcintosh, OD [address] [facility], [address] [place] [id number] Optometry 12/12/22 Leatha Landon MD [address] [place] [address] Consulting Physician Otolaryngology 12/12/22 [place] [address] [place] [address] Psychology 12/12/22
--- OUTSIDE RECORDS SUMMARY | 2024-06-15 18:06 | XMS_ITS | Continuity of Care Document ---
Author Organization [facility] Address [address] [place] [address] Phone Care Team Providers Care Procurement Clerk Name Role Phone Rupal Jain PA-C Unavailable [...] OFFICE/OUTPAT IENT VISIT NEW [facility] , [address], [place], [address], tel:[phone] [facility] Pain in right kneeBody mass index (BMI) 30.0-30.9, adult Cristobal Goldsmith. [address], [place], [place], [address]. tel:[phone] Referring Provider: Ramsey Peguero, [address] [place] [address], [place], [address] . tel:[phone] Family History Family Member Type Diagnosis Age At Onset Father Problem (finding) Renal disease Father Problem (finding) Maternal history of libby betes mellitus Payers Payer name Insurance type Covered libertarian ID Truong richards(s) Medicare E2 OT [id number] Miscellaneous/Courtesy Claim OT ILL LISA Social History [...]
--- OUTSIDE RECORDS SUMMARY | 2024-06-15 18:06 | XMS_ITS | Clinical Summary ---
Author Organization [facility] Healthcare Address [address] [place] [address] Care Team Providers Care Ending Machine Operator Name Role Phone Sony Martel MD Unavailable [phone] Soumya Lockwood NP Primary Care Provider Tia Medeiros MD Unavailable [phone] Renny Maldonado MD Unavailable [phone] Hernandez Méndez DDS Unavailable [phone] Stephie Mcintosh OD Unavailable [phone] Leatha Landon MD Unavailable Ruel Lucio PhD Unavailable [phone] Allergies Active Allergy Reactions Criticality Noted Date Comments Cefuroxime Rash Medium 01/30/2021 Ciprofloxacin Hives,Rash Medium Clindamycin Hives Medium 01/30/2021 Bromocriptine Unknown,Itching Low 11/23/2010 Levofloxacin Other (See comments),Rash Medium 12/22/2012 Morphine Unknown 06/27/2007 Penicillins Rash,Unknown Medium 05/02/2006 Rash Quinolones Hives,Rash,Unknown,U rticaria High 07/14/2020 tendon tear Hives Twslgmr-Bxy-Vaj Reductase Inhibitors Other (See comments) Low Reaction: Other Sulfa (Sulfonamide Antibiotics) Hives,Rash Medium 07/14/2020 Rash Tetracycline Unknown Low 04/06/2019 Warfarin Nausea only Low 07/29/2018 Medications lancets (onetouch ultrasoft) [facility] Check blood sugar twice daily E11.9 100 each 3 04/03/19 Active TROLAMINE SALICYLATE TOP Apply 1 Application topically 2 (two) times a day as needed for muscle/joint pain Active blood sugar diagnostic (ONETOUCH ULTRA BLUE TEST STRIP [facility] OneTouch Ultra Blue Test Strip CHECK BS [...] Units total) by mouth daily Active coenzyme C05-kxkxkgk E 100-5 mg-unit capsule Take 1 tablet [...] daily as needed for heartburn Active vit C,B-Bq-sxmdi-bela tein-zeaxan 250-90-40-1 mg capsule Take 1 capsule [...] 020 Assessment & Plan (03/20/2022 5:07 PM FABRIC FINISHER): pfats TID+ OU Assessment & Plan (11/23/2019 3:20 PM CDT): Continue preserv-free artificial tear, increase to QID. 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 cards ordered and gets that- every 6m - [facility] - DEXA: she will check - Colon [...] 08/24/2015 Diabetes mellitus type 2 in obese ([facility]) 06/11 Overview (06/21/2016): Type 2 diabetes mellitus [...] 02/18/2023 Assessment & Plan (01/22/2023 2:38 PM FABRIC FINISHER): - Keep all the following appts and followups, call with questions. - Coordination of Home care services and follow-up with specialist appointments confirmed. - Instructions have been provided to and reviewed with the patient/health care law specialist prior to discharge. Mood disturbance 11/16/2022 02/18/2023 Sleep disturbance 11/16/2022 02/18/2023 Fall injury while running 11/07/2022 Fall on board fishing boat 11/07/2022 1 04/21/2022 Bilateral pulmonary embolism 08/05/2021 12/05/2021 SOB (shortness of breath) 08/05/2021 Diabetes mellitus type 2 without retinopathy 2 06/04/2022 Assessment & Plan (03/20/2022 5:06 PM FABRIC FINISHER): Pt ed. Stressed BG control (HbA1C<7) to [...] 06/17/201701/2023 Low back pain 06/13/2017 02/18/2023 Hyperparathyroidism ([facility]/H[facility]) 07/08/2014 06/04/2022 Overview (06/21/2016): Hyperparathyroidism [...] drink = 0.6 oz pur e alcohol) [facility] Utilities Answer Date Recorded In the past 12 months has e electric, gas, oil, or water [employer] threatened to shut off services in your [...] How often do you attend chur or amish services? More than 4 times per year 02/18/2023 Do you belong to any clubs o r organizations such as orthodoxy groups, unions, fraternal or athletic groups, or [...] staff should administer the PHQ-9) 0 12/12/2022 [facility] Occupational Stress Questionnaire Answer [...] place to sleep or slept in a chcf (including now)? No 02/18/2023 Personal Safety Answer Date Recorded Have you ever been in or are you currently in a harmful physical or emotional relationship or is someone making you feel afraid or unsafe? Denies 02/17/2023 Comments No Sex and Gender Information Value Date Recorded Sex Assigned at Not on file Legal Sex Female 8:21 PM FABRIC FINISHER Gender Identity Not on file Sexual Orientation Not on file Obstetrics History Last Filed Vital Signs Vital Sign Reading Time Taken Comments Blood Pressure 109/96 02/21/2023 2:08 PM FABRIC FINISHER Pulse 69 02/21/2023 2:08 PM FABRIC FINISHER Temperature 36.5 C (97.7 F) 02/21/2023 12:07 PM FABRIC FINISHER Respiratory Rate 20 02/21/2023 12:07 PM FABRIC FINISHER Oxygen Saturation 97% 02/21/2023 12:07 PM FABRIC FINISHER Inhaled Oxygen Concentration - - Weight 78.2 kg (172 lb 6.4 oz) 02/21/2023 5:59 A M FABRIC FINISHER Height 157.5 cm (5' 2 ) 02/19/2023 8:20 AM FABRIC FINISHER Body Mass Index 31.53 02/19/2023 8:20 AM FABRIC FINISHER Plan of Treatment Health Maintenance Due Date [...] Diagnosis Comments EGFR Routine 02/21/2023 6:43 AM FABRIC FINISHER LIPID PANEL Routine 12/12/2022 12:02 PM CDT Medicare annual wellness visit, subsequent Hyperlipidemia, unspecified hyperlipidemia type HEMOGLOBIN A1C Routine 10/23/2022 7:37 AM CDT Diabetes mellitus type 2 in obese ([facility]) ([facility]) ALBUMIN CREATININE RATIO, URINE Routine 08/04/2021 10:41 AM CDT Diabetes mellitus type 2 in obese ([facility]) ([facility]) Hyperlipidemia, unspecified hyperlipidemia type Vitamin D deficiency Hyperparathyroidism Shortness of breath from Last 3 Months or Most Recently Relevant to Health Maintenance Results * eGFR (02/21/2023 6:43 AM FABRIC FINISHER) eGFR 44 mL/min/1. 73 m2 [facility] Comment: [...] last reviewed 2021. Blood 02/21/2023 6:43 AM FABRIC FINISHER 02/21/2023 7:47 AM FABRIC FINISHER Carlos Guerrero MD LAB BLOOD ORDERABLES Final Re sult Performing Organization Address City/[facility]/ZIP Co de Phone Number [facility] [address] [facility] [place] [address] * (ABNORMAL) Lipid panel (12/12/2022 12:02 PM CDT) Triglyceride 260(H) 0 - 150 mg/dL [facility] Cholesterol 193 0 - 200 mg/dL [facility] HDL 65 >45 mg/dL [facility] LDL-Calculated 76 mg/dL [facility] CHOL/HDL Risk Ratio 3 Ratio [facility] LDL/HDL Risk Ratio 1 Ratio [facility] Blood 12/12/2022 12:0 2 PM CDT 12/12/2022 12:28 PM CDT Soumya Lockwood NP LAB BLOOD ORDERABLES F inal Result Performing Organization Address [facility] Co de Phone Number [facility] [address] [place] [address] * (ABNORMAL) Hemoglobin A1c (10/23/2022 7:37 AM CDT) Hgb A1C 6.9(H) 4.0 - 5.6 % [facility] MCCANN Estimated Average Glucose 151 mg/dL [facility] MCCANN Comment: The ADA recommends reporting an estimated Average Glucose (eAG) with all Hemoglobin A1c results using the equation derived from a study of 507 normal and diabetic adults. Minority populations were underrepresented and children were not included. (Diabetes Care 31:3366-4203, 2008). The eAG is not equivalent to a fasting glucose. Blood 10/23/2022 7:37 AM CDT 10/23/2022 7:41 AM CDT Renae Nguyen MD LAB BLOOD ORDERABLES F inal Result Performing Organization Address City/[facility]/ZIP Co de Phone Number [facility] [address] [facility] [place] [place] [address] * Albumin Creatinine Ratio, Urine (08/04/2021 10:41 AM CDT) Albumin Ur <12.0 mg/L [facility] Comment: Interpretive Data No reference range established. Current interpretive data was last revised 2018. Creatinine Ur 45.2 mg/dL [facility] Comment: Interpretive Data No reference range established. Current interpretive data was last revised 2018. Albumin Creatinine Ratio, Ur <27 1 - 29 mg/g [facility] Urine 08/04/2021 10:4 1 AM CDT 08/04/2021 11:08 AM CDT us Tia Medeiros MD LAB URINE ORDERABLES Final Result [facility] [address] [place] [address] from Last 3 Months or Most Recently Relevant to Health Maintenance Insurance MEDICARE [facility] MEDICARE IDPA MEDICARE IDPA MEDICARE IDPA Advance Directives For more information, please contact: [phone] Documents on File Type Date Recorded Patient Director Of Campus Recreation Expl anation ADVANCE DIRECTIVE 02/22/2023 1:15 PM Shari ng Will ADVANCE DIRECTIVE 02/22/2023 1:14 PM Tima r of Heavy Antiarmor Weapons Infantryman-Medical ADVANCE DIRECTIVE 12/05/2021 [facility] - PH YS [...] specifically selected below: No intubation Care Teams Ending Machine Operator Relationship Specialty Start Date End Date Soumya Lockwood NP [address] [place] [address] PCP - General Internal Medicine 12/06/22 Sony Martel MD Consulting Physician Infectious Diseases 03/06/19 Tia Medeiros MD [address] [place] [address] Consulting Physician Endocrinology Diabetes & Metabolism 12/12/22 Renny Maldonado MD [address] [place] [address] Consulting Physician Cardiovascular Disease 12/12/22 Hernandez Méndez DDS [address] [facility] [address] [place] [address] Oral Surgery 12/12/22 Stephie Mcintosh OD [address] [facility]ALMOLOGY, [address] [place] [address] Optometry 12/12/22 Leatha Landon MD [address] [facility] [address] [place] [address] Consulting Physician Otolaryngology 12/12/22 [place] [address] [place] [address] Psychology 12/12/22
--- OUTSIDE RECORDS SUMMARY | 2024-06-15 18:06 | XMS_ITS | Encounter Summary ---
Author Organization [facility] Address [address] [place] [address] Phone Care Team Providers Care Security Services Specialist Name Role Phone Ramsey Peguero MD Primary Care Provider + [phone] Unknown, Notinfile Primary Care Provider Unavail able Ramsey Peguero MD Primary Care Provider + [phone] Unknown, Notinfile Primary Care Provider Unavail able Unknown, Notinfile Primary Care Provider Unavail able Ramsey Peguero MD Primary Care Provider + [phone] Meera Arredondo NP Primary Care Provi marjorie Sony Martel MD Unavailable +[phone] Ramsey Peguero MD Primary Care Provider + [phone] Ximena Kulkarni MD Primary Care Provider [phone] Ramsey Peguero MD Primary Care Provider + [phone] Renae Nguyen MD Primary Care Provider Soumya Lockwood MANAGER WELLNESS Primary Care Provider Tia Medeiros MD Unavailable [phone] Renny Maldonado MD Unavailable +[phone] Hernandez Méndez DDS Unavailable [phone] Stephie Mcintosh OD Unavailable Leatha Landon MD Unavailable [phone] Ruel Lucio PhD Unavailable Encounter Details Date Type Department Care Team (Latest Contact Info) Description 06/03/2014 Orders Only [facility] EML Scanning, Provider Social History Tobacco Use Types Packs/Day Years Used Date Smoking Tobacco: Never Assessed Comments Unknown Sex and Gender Information Value Date Recorded Sex Assigned at Not on file Legal Sex Female 8:21 PM PILE DRIVER OPERATOR Gender Identity Not on file Sexual [...] on filedocumented in this encounter Care Teams Security Services Specialist Relationship Specialty Start Date End Date Ramsey Peguero MD [address] [place] [address] PCP - General 09/02/13 06/05/17 Unknown, Notinfile PCP - General 06/06/17 06/23/17 Ramsey Peguero MD [address] [place] [address] PCP - General 06/24/17 06/24/17 Unknown, Notinfile PCP - General 06/25/17 07/02/17 Unknown, Notinfile PCP - General 07/03/17 07/07/17 Ramsey Peguero MD [address] [place] [address] PCP - General 07/08/17 11/30/18 Meera Arredondo NP PCP - General 12/01/18 04/05/19 Ramsey Peguero MD [address] [place] [address] PCP - General Internal Medicine 04/06/19 07/13/20 Ximena Kulkarni MD [address] [facility] [address] [address] PCP - General 07/14/20 10/16/20 Ramsey Peguero MD [address] [place] [address] PCP - General Internal Medicine 10/17/20 07/04/21 Renae Nguyen MD [address] [place] [address] PCP - General Internal Medicine 07/05/21 12/05/22 Soumya Lockwood, TYLER [address] [place] [address] PCP - General Internal Medicine 12/06/22 Sony Martel MD Consulting Physician Infectious Diseases 03/06/19 Tia Medeiros MD [address] [place] [address] Consulting Physician Endocrinology Diabetes & Metabolism 12/12/22 Renny Maldonado MD [address] [place] [address] Consulting Physician Cardiovascular Disease 12/12/22 Hernandez Méndez DDS [address] [place] [address] Oral Surgery 12/12/22 Stephie Mcintosh, TALA [address] [facility]PT OPHTHALMOLOGY, [address] [place] [address] Optometry 12/12/22 Leatha Landon MD [address] [place] [address] Consulting Physician Otolaryngology 12/12/22 [place] [address] [place] [address] Psychology 12/12/22 documented as of this encounter
--- OUTSIDE RECORDS SUMMARY | 2024-06-15 18:06 | XMS_ITS | Encounter Summary ---
Author Organization [facility] Address [address] [place] [address] Phone Care Team Providers Care Oracle Software Engineer Name Role Phone Ramsey Peguero MD Primary Care Provider + [phone] Meera Arredondo NP Primary Care Provi marjorie Sony Martel MD Unavailable [phone] Ramsey Peguero MD Primary Care Provider + [phone] Ximena Kulkarni MD Primary Care Provider [phone] Ramsey Peguero MD Primary Care Provider + [phone] Renae Nguyen MD Primary Care Provider Soumya Lockwood SECURITY SHIFT SUPERVISOR Primary Care Provider Tia Medeiros MD Unavailable [phone] Renny Maldonado MD Unavailable [phone] Hernandez Méndez DDS Unavailable [phone] Stephie Mcintosh OD Unavailable [phone] Leatha Landon MD Unavailable [phone] Ruel Lucio PhD Unavailable [phone] Encounter Details Date Type Department Care Team [...] on file Legal Sex Female 8:21 PM JEWEL BEARING DRILLER Gender Identity Not on file Sexual Orientation [...] on filedocumented in this encounter Care Teams Oracle Software Engineer Relationship Specialty Start Date End Date Ramsey Peguero MD [address] [place] [address] PCP - General 07/08/17 11/30/18 Meera Arredondo NP [address] [place] [address] PCP - General 12/01/18 04/05/19 Ramsey Peguero MD [address] [place] [address] PCP - General Internal Medicine 04/06/19 07/13/20 Ximena Kulkarni MD [address] [facility] [address] [place] [address] PCP - General 07/14/20 10/16/20 Ramsey Peguero MD [address] [place] [address] PCP - General Internal Medicine 10/17/20 07/04/21 Renae Nguyen MD [address] [place] [address] PCP - General Internal Medicine 07/05/21 12/05/22 Soumya Lockwood, SECURITY SHIFT SUPERVISOR [address] [place] [address] PCP - General Internal Medicine 12/06/22 Sony Martel MD [address] [place] [address] [address] [place] [address] Consulting Physician Infectious Diseases 03/06/19 Tia Medeiros MD [address] [place] [address] Consulting Physician Endocrinology Diabetes & Metabolism 12/12/22 Renny Maldonado MD [address] [place] [address] Consulting Physician Cardiovascular Disease 12/12/22 Hernandez Méndez DDS [address] [facility] [address] [place] [address] Oral Surgery 12/12/22 Stephie Mcintosh OD [address] [facility] OPHTHALMOLOGY, [address] [place] [address] Optometry 12/12/22 Leatha Landon MD [address] [facility] [address] [place] [address] Consulting Physician Otolaryngology 12/12/22 [place] [address] [address] [address] Psychology 12/12/22 documented as of this encounter
--- NOTE | 2024-06-15 20:31 | ADMGEN ---
This patient, Gabriela Gutierrez, was admitted to Medical Room 343-01. Patient/family oriented to hospital policies and general routines including ID bracelet, bed and alarms, visiting hours, pain management, procedures, bathroom and other care routines, personal items, smoking policy, room service/diet, and visiting hours. Information on how to activate the Rapid Response Team has been discussed. Patient/Family are encouraged to report perceived risks to care and to ask questions if they do not understand what they are told or what they should do.
--- NOTE | 2024-06-15 20:40 | PM.IMHP ---
H&P: HPI History of Present Illness Date/Time: 06/15/24 20:40 Chief Complaint: Dark stools. Narrative: This is an 88-year-old female with history dementia, seizures, hypertension, hyperlipidemia, type 2 diabetes mellitus, and anxiety who presented to the emergency department via EMS from [facility] for evaluation of dark stools. She is alert and oriented x2 at baseline and must suffer from pretty significant short-term memory loss as she does not remember why she was brought here today. A majority the following history is obtained via a review of her EMR due to the fact that she is a poor historian. Staff at her facility noticed that her stool was dark this morning and sent her in for evaluation. She voices no complaints to the triage note hours or the ED provider and at the time my evaluation she is resting comfortably. She does not remember having dark stools and denies epigastric and abdominal pain, bloating, belching, and constipation. She has no known history of hemorrhoids, ulcers, for diverticulosis but again she is a poor historian. In the ED: Vital signs were stable on arrival. She had 1 blood pressure which was recorded is 87/62 however the majority of her readings have been in the 120s to 130s systolic. Labs were significant for WBC count of 10.2, hemoglobin 11.6, BUN 24, glucose 212, calcium 6.6, albumin 3.6. Maroon stool noted on digital rectal exam per ED physician. She was started on pantoprazole and is being admitted in this setting for close monitoring and GI consultation. Review of Systems Review of Systems: 12 systems were reviewed and are negative except for as per HPI. [facility] Past Medical History Medical History (Updated 06/15/24 @ 23:13 by Lisa Gonzalez PA-C) Pulmonary embolism Gastroesophageal reflux disease Deep venous thrombosis Osteoarthritis Hyperlipidemia Benign essential hypertension Peripheral vascular disease Epilepsy Chronic kidney disease, stage 3 Type 2 diabetes mellitus Fatty liver Alzheimer's dementia with anxiety Cholelithiasis Cerebrovascular disease Surgical History Surgical History (Updated 06/15/24 @ 23:13 by Lisa Gonzalez PA-C) History of cataract extraction History of tonsillectomy Family History Family History Other Unknown family medical history Social History Social History (Updated 06/15/24 @ 23:14 by Lisa Gonzalez PA-C) Social History: Healthcare power of employment law attorney: Ambar Ball ([phone]). Emergency contact and ?healthcare advocate: Home Flores ([phone]). Code status: Do not resuscitate. Smoking status: Unknown if ever smoked Alcohol intake: never Substance use: never Do You Feel Safe in your Home?: Yes Lack of Transportation: No Lack of Food: Never True Current Housing: I Have Housing Concerned About Future Housing: No Difficulty Paying Gas/Electric Bills: No Difficulty Paying for Meds: No Currently Unemployed: No Education: Master's Degree or Higher Difficulty w/ Childcare or Family Care: No Spiritual care concerns: No Meds Home Medications and Allergies Home Medications ?Medication ?Instructions ?Recorded ?Confirmed ?Type acetaminophen 325 mg tablet 650 mg PO Q4H PRN pain 05/28/24 06/15/24 History (Tylenol) aluminum-mag hydroxide-simethicone 10 ml PO Q6H PRN indigestion 05/28/24 06/15/24 History 400 mg-400 mg-40 mg/5 mL oral susp (Maalox Maximum Strength) aspirin 81 mg chewable tablet 81 mg PO DAILY 05/28/24 06/15/24 History glucagon HCl 1 mg solution for 1 mg subcut ONCE 05/28/24 06/15/24 History injection (Glucagon (HCl) Emergency Kit) insulin glargine 100 unit/mL 10 unit subcut DAILY 05/28/24 06/15/24 History subcutaneous solution (Lantus U-100 Insulin) insulin lispro 100 unit/mL 1 sliding scale dose subcut 05/28/24 06/15/24 History subcutaneous half-unit pen USEASDIRECTD (Humalog Karsten KwikPen (U-100)) insulin lispro 100 unit/mL 5 unit subcut .COMPLEX 05/28/24 06/15/24 History subcutaneous half-unit pen (Humalog Karsten KwikPen (U-100)) losartan 25 mg tablet 25 mg PO DAILY 05/28/24 06/15/24 History magnesium hydroxide 400 mg/5 mL 10 ml PO DAILY 05/28/24 06/15/24 History oral suspension (Milk of Magnesia) metformin 1,000 mg tablet 1,000 mg PO BID 05/28/24 06/15/24 History omeprazole 20 mg tablet,delayed 20 mg PO DAILY 05/28/24 06/15/24 History release ondansetron 4 mg disintegrating 4 mg PO Q6H PRN nausea and vomiting 05/28/24 06/15/24 History tablet polyethylene glycol 3350 17 gram 17 g PO DAILY 05/28/24 06/15/24 History oral powder packet (Miralax) sennosides 8.6 mg capsule (senna) 8.6 mg PO BID 05/28/24 06/15/24 History trolamine salicylate 10 % topical 1 applic topical TID PRN muscle 05/28/24 06/15/24 History cream (Pain Relief (trolamine pain salicylate)) levetiracetam 500 mg tablet 500 mg PO Q12HR #60 tabs 06/02/24 06/15/24 Rx (Keppra) thiamine HCl (vitamin B1) 100 mg 100 mg PO QAM #30 tabs 06/02/24 06/15/24 Rx tablet (Vitamin B-1) escitalopram oxalate 5 mg tablet 5 mg PO DAILY 06/15/24 06/15/24 History (Lexapro) furosemide 40 mg tablet 40 mg PO DAILY 06/15/24 06/15/24 History memantine 5 mg tablet (Namenda) 5 mg PO DAILY 06/15/24 06/15/24 History peg 400-propylene glycol (PF) 0.4 1 drp EACH EYE TID PRN dry eye(s) 06/15/24 06/15/24 History %-0.3 % eye drops in a dropperette (Lubricant Eye (PG-PEG 400) (PF)) Allergies Allergy/AdvReac Type Severity Reaction Status Date / Time bromocriptine (From Cycloset) Allergy Unknown Verified 06/15/24 19:55 ciprofloxacin (From Cipro) Allergy Other Verified 06/15/24 19:55 levofloxacin Allergy Other Verified 06/15/24 19:55 morphine Allergy Unknown Verified 06/15/24 19:55 Penicillins Allergy Other Verified 06/15/24 19:55 Quinolones Allergy Hives Verified 06/15/24 19:55 [id number]-CIM-BhY Reductase Allergy Unknown Verified 06/15/24 19:55 Inhibitor Sulfa (Sulfonamide Allergy Other Verified 06/15/24 19:55 Antibiotics) tetracycline Allergy Unknown Verified 06/15/24 19:55 warfarin Allergy Unknown Verified 06/15/24 19:55 cefuroxime AdvReac Mild Rash Verified 06/15/24 19:55 clindamycin AdvReac Hives Verified 06/15/24 19:55 Vital Signs Vital Signs - 24 hr 06/15/24 14:34 06/15/24 16:38 06/15/24 16:47 Temperature 97.9 F Pulse Rate 76 79 72 Respiratory Rate 16 27 H 16 Blood Pressure 134/60 124/82 125/57 L Pulse Oximetry 99 98 97 Oxygen Delivery Room Air 06/15/24 16:54 06/15/24 16:54 06/15/24 17:02 Temperature Pulse Rate 63 77 87 Respiratory Rate 18 21 H Blood Pressure 125/57 L 87/62 L Pulse Oximetry 99 100 Oxygen Delivery Room Air 06/15/24 17:10 06/15/24 19:15 Temperature Pulse Rate 87 78 Respiratory Rate 25 H 16 Blood Pressure 137/79 129/75 Pulse Oximetry 98 99 Oxygen Delivery Exam Narrative: General: Nontoxic-appearing elderly female in the semi-Granados position in bed. Weight: 83.46 kg. BMI: 31.6. HEENT: PERRL, EOMI. Sclera anicteric. Tacky mucous membranes. Neck: Supple. Respiratory: Lungs are clear to auscultation bilaterally. Cardiovascular: Regular rate and rhythm with S1-S2. Gastrointestinal: Abdomen is soft, nontender, and nondistended with positive bowel sounds. Skin: Warm and dry. Extremities: No cyanosis, clubbing, or significant edema. Radial and pedal pulses intact. Neurological: Alert to name, age, and place. She is confused to year and situation. Cranial nerves 2-12 are grossly intact. No gross focal deficits to casual conversation. Psychiatric: Pleasantly confused and cooperative. H&P: Results Labs Labs: Short CBC 06/15/24 Range/Units 16:52 WBC 10.2 H (4.5-10.0) K/mm3 Hgb 11.6 L (12.0-15.0) g/dL Hct 37.2 (37.0-47.0) % Plt Count 364 (150-375) k/mm3 [facility] 06/15/24 16:52 Sodium 136 L Potassium 4.6 Chloride 101 Carbon Dioxide 23 BUN 24 H Creatinine 0.95 Glucose 212 H Calcium 6.6 L Liver Function 06/15/24 Range/Units 16:52 Total Bilirubin 0.2 (0.2-1.3) mg/dL AST 16 (14-36) U/L ALT 21 (6-35) U/L Alkaline Phosphatase 181 H (38-126) U/L Albumin 3.6 (3.5-5.1) g/dL Assessment and Plan Assessment and plan (1) GI bleed: Code(s): K92.2 - Gastrointestinal hemorrhage, unspecified Status: Acute (2) Benign essential HTN: Code(s): I10 - Essential (primary) hypertension Status: Acute (3) Type 2 diabetes mellitus: Code(s): E11.9 - Type 2 diabetes mellitus without complications Status: Acute (4) Hypocalcemia: Code(s): E83.51 - Hypocalcemia Status: Acute Plan The patient presented to the emergency department for evaluation of dark stools as detailed in HPI. Labs, imaging, EKG, and all reports were personally reviewed. ED physician reports maroon colored stool on digital rectal exam. ED physician consulted the on-call construction estimator who recommends starting the patient on pantoprazole. She will be NPO after midnight for possible endoscopies tomorrow. Hemoglobin and hematocrit will be trended and she will be transfused if indicated. She had 1 blood pressure reading of 87/62 but her systolic blood pressures have been in the 120s to 130s since that time. For now we will hold her antihypertensives. Calcium will be replaced and monitored. Continue basal insulin. Initiate sliding scale insulin, Accu-Cheks, and hypoglycemic protocol. Her home medications will be reviewed and resumed as appropriate. Findings and treatment plan were discussed with the patient. Questions were solicited and answered to satisfaction. The patient's medical management will be taken over by the hospitalist team in a.m. Quality VTE Prophylaxis VTE prophylaxis: mechanical ordered If No VTE Prophylaxis Answer both mechanical and pharmacologic: Reason no pharmacologic proph: medical contraindication (GI bleed) The patient has been admitted under observation status. Hospitalist MIPS Advance Care Plan I have confirmed that the patient's Advanced Care Plan is present, code status is documented, or surrogate decision maker is listed in patient medical record.: Yes Medication Reconciliation I have utilized all available resources to obtain, update and review the patients current medications (includes all prescriptions, OTC, herbals, cannabis, and nutritional supplements).: Yes
[2024-06-15 21:06] LABS: Hematocrit 35.3 % (37.0-47.0); Hemoglobin 10.9 g/dL (12.0-15.0)
[2024-06-15 21:52] LABS: Hemoglobin A1C 8.2 % (<5.7)
[2024-06-15] MEDS: CALCIUM GLUCONATE 1,000 MG/10 ML VIAL 1000 MG IV PUSH (23:10)
[2024-06-16 02:43] LABS: Hematocrit 33.9 % (37.0-47.0); Hemoglobin 10.3 g/dL (12.0-15.0)
[2024-06-16 06:00] VITALS: BP 137/50; PULSE 59; RESP 20; TEMP 36.1; O2SAT 98
[2024-06-16 07:43] LABS: Glucose Point of Care 174 mg/dl (65-105)
--- NOTE | 2024-06-16 08:01 | P.CONGI_ITS ---
Assessment and Plan Assessment and plan (1) Acute upper GI bleeding: Code(s): K92.2 - Gastrointestinal hemorrhage, unspecified Status: Acute (2) Normocytic anemia: Code(s): D64.9 - Anemia, unspecified Status: Acute (3) Elevated alkaline phosphatase level: Code(s): R74.8 - Abnormal levels of other serum enzymes Status: Acute Plan 1. GI bleed/normocytic anemia: Patient admitted for dark stools from [facility]. Recently hospitalized May 28 for AMS, seizure activity and L1 burst fracture. Noted to have dark red stool in ER no BM today. Patient alert to self so unable to say if she has been having rectal bleeding. On admission Hgb 12 and today 10. Patient on ASA 81 mg prior to admission. No signs of active bleeding at this time. CT done during last admission showed questionable minimal acute diverticulitis. * Will take a more observational approach at this time unless her H/H decreases or active bleeding noted at which time we can reconsider need for endoscopic evaluation * Ok to advance diet today * Primary care team to continue monitoring H/H 2. Elevated Alk Phos: Chronic Alk Phos elevation, likely related to known CKD. Continue to monitor. No need for additional work up at this time. Thank you very much for allowing me to share in the care of this very nice patient. This report may have been done utilizing a voice recognition system. Attempts have been made to correct errors. However, there may be uncorrected grammatical, spelling, and recognition errors present. GI Consult Note Consult date/time: 06/16/24 08:01 Reason for consult: GI bleed HPI: Gabriela Gutierrez is a 88 year old female with PMSH of epilepsy, HTN, Alheimer's dementia, HLD, CKD stage 3 and PVD. Patient presented to the ER yesterday from [facility] for rectal bleeding. GI has been consulted for GI bleed. Patient was recently admitted to [place] May 28 for AMS and seizure activity. Patient alert to self only unable to confirm reliability of subjective information provided. During todays visit she denies any GI complaints. She denies pain, nausea, vomiting, swallowing difficulty, constipation or diarrhea. She was unable to say if she recently had any dark stools or rectal bleeding. Per RN the patient was noted to have a dark red stool in the ER but no BM today. ENDOSCOPY HISTORY: Prior endoscopy Hx unknown LABS AND STOOL STUDIES: Labs 06/16/2024: Hgb 10 and Hct 34 Labs 06/15/2024: Sodium 136, potassium 4.6, BUN 24, creatinine 0.95, GFR 56 WBC 10, Hgb 12, Hct 37, MCV 86, platelets 364, INR 1.1 Total bilirubin 0.2, AST 16, ALT 21, Alkaline Phos 181, albumin 3.6 IMAGING: CT abd/pelvis w/contrast 05/28/2024: Impression: Questionable minimal acute diverticulitis at the proximal transverse colon. L1 vertebral body compression fracture, age-indeterminate, likely subacute, new from prior exam. Consider MR to evaluate for marrow edema as indicated. Cholelithiasis/gallbladder sludge. HIDA scan 03/25/2023: FINDINGS: There is normal clearance of radiotracer from the blood pool. There is homogeneous tracer uptake by the liver. Activity progresses to the bowel and gallbladder. The gallbladder ejection fraction (GBEF) is 80%. Note that with this technique, normal GBEF >= 33%. IMPRESSION: 1. Normal hepatobiliary scan CT abd/pelvis w/contrast 03/17/2023: Impression: No acute abnormality. Cholelithiasis. Diffuse fatty infiltration of liver. Review of Systems 2 Review of Systems: ROS unobtainable: Yes unobtainable due to medical condition and unobtainable due to mental status [facility] Past Medical History Medical History (Updated 06/16/24 @ 09:14 by Sylvia Arreguin APRN) Pulmonary embolism Gastroesophageal reflux disease Deep venous thrombosis Osteoarthritis Hyperlipidemia Benign essential hypertension Peripheral vascular disease Epilepsy Chronic kidney disease, stage 3 Type 2 diabetes mellitus Fatty liver Alzheimer's dementia with anxiety Cholelithiasis Cerebrovascular disease Surgical History Surgical History (Updated 06/15/24 @ 23:13 by Lisa Gonzalez PA-C) History of cataract extraction History of tonsillectomy Family History Family History Other Unknown family medical history Social History Social History (Updated 06/15/24 @ 23:14 by Lisa Gonzalez PA-C) Social History: Healthcare power of field service manager: Ambar Ball ([phone]). Emergency contact and ?healthcare advocate: Home Flores ([phone]). Code status: Do not resuscitate. Smoking status: Unknown if ever smoked Alcohol intake: never Substance use: never Do You Feel Safe in your Home?: Yes Lack of Transportation: No Lack of Food: Never True Current Housing: I Have Housing Concerned About Future Housing: No Difficulty Paying Gas/Electric Bills: No Difficulty Paying for Meds: No Currently Unemployed: No Education: Master's Degree or Higher Difficulty w/ Childcare or Family Care: No Spiritual care concerns: No Meds Home Medications and Allergies Home Medications ?Medication ?Instructions ?Recorded ?Confirmed ?Type acetaminophen 325 mg tablet 650 mg PO Q4H PRN pain 05/28/24 06/15/24 History (Tylenol) aluminum-mag hydroxide-simethicone 10 ml PO Q6H PRN indigestion 05/28/24 06/15/24 History 400 mg-400 mg-40 mg/5 mL oral susp (Maalox Maximum Strength) aspirin 81 mg chewable tablet 81 mg PO DAILY 05/28/24 06/15/24 History glucagon HCl 1 mg solution for 1 mg subcut ONCE 05/28/24 06/15/24 History injection (Glucagon (HCl) Emergency Kit) insulin glargine 100 unit/mL 10 unit subcut DAILY 05/28/24 06/15/24 History subcutaneous solution (Lantus U-100 Insulin) insulin lispro 100 unit/mL 1 sliding scale dose subcut 05/28/24 06/15/24 History subcutaneous half-unit pen USEASDIRECTD (Humalog Karsten KwikPen (U-100)) insulin lispro 100 unit/mL 5 unit subcut .COMPLEX 05/28/24 06/15/24 History subcutaneous half-unit pen (Humalog Karsten KwikPen (U-100)) losartan 25 mg tablet 25 mg PO DAILY 05/28/24 06/15/24 History magnesium hydroxide 400 mg/5 mL 10 ml PO DAILY 05/28/24 06/15/24 History oral suspension (Milk of Magnesia) metformin 1,000 mg tablet 1,000 mg PO BID 05/28/24 06/15/24 History omeprazole 20 mg tablet,delayed 20 mg PO DAILY 05/28/24 06/15/24 History release ondansetron 4 mg disintegrating 4 mg PO Q6H PRN nausea and vomiting 05/28/24 06/15/24 History tablet polyethylene glycol 3350 17 gram 17 g PO DAILY 05/28/24 06/15/24 History oral powder packet (Miralax) sennosides 8.6 mg capsule (senna) 8.6 mg PO BID 05/28/24 06/15/24 History trolamine salicylate 10 % topical 1 applic topical TID PRN muscle 05/28/24 06/15/24 History cream (Pain Relief (trolamine pain salicylate)) levetiracetam 500 mg tablet 500 mg PO Q12HR #60 tabs 06/02/24 06/15/24 Rx (Keppra) thiamine HCl (vitamin B1) 100 mg 100 mg PO QAM #30 tabs 06/02/24 06/15/24 Rx tablet (Vitamin B-1) escitalopram oxalate 5 mg tablet 5 mg PO DAILY 06/15/24 06/15/24 History (Lexapro) furosemide 40 mg tablet 40 mg PO DAILY 06/15/24 06/15/24 History memantine 5 mg tablet (Namenda) 5 mg PO DAILY 06/15/24 06/15/24 History peg 400-propylene glycol (PF) 0.4 1 drp EACH EYE TID PRN dry eye(s) 06/15/24 06/15/24 History %-0.3 % eye drops in a dropperette (Lubricant Eye (PG-PEG 400) (PF)) Allergies Allergy/AdvReac Type Severity Reaction Status Date / Time bromocriptine (From Cycloset) Allergy Unknown Verified 06/15/24 19:55 ciprofloxacin (From Cipro) Allergy Other Verified 06/15/24 19:55 levofloxacin Allergy Other Verified 06/15/24 19:55 morphine Allergy Unknown Verified 06/15/24 19:55 Penicillins Allergy Other Verified 06/15/24 19:55 Quinolones Allergy Hives Verified 06/15/24 19:55 [id number] Reductase Allergy Unknown Verified 06/15/24 19:55 Inhibitor Sulfa (Sulfonamide Allergy Other Verified 06/15/24 19:55 Antibiotics) tetracycline Allergy Unknown Verified 06/15/24 19:55 warfarin Allergy Unknown Verified 06/15/24 19:55 cefuroxime AdvReac Mild Rash Verified 06/15/24 19:55 clindamycin AdvReac Hives Verified 06/15/24 19:55 Vital Signs Vital Signs - 24 hr 06/15/24 14:34 06/15/24 16:38 06/15/24 16:47 Temperature 97.9 F Pulse Rate 76 79 72 Respiratory Rate 16 27 H 16 Blood Pressure 134/60 124/82 125/57 L Pulse Oximetry 99 98 97 Oxygen Delivery Room Air 06/15/24 16:54 06/15/24 16:54 06/15/24 17:02 Temperature Pulse Rate 63 77 87 Respiratory Rate 18 21 H Blood Pressure 125/57 L 87/62 L Pulse Oximetry 99 100 Oxygen Delivery Room Air 06/15/24 17:10 06/15/24 19:15 06/15/24 22:00 Temperature 97.0 F L Pulse Rate 87 78 69 Respiratory Rate 25 H 16 20 Blood Pressure 137/79 129/75 144/62 H Pulse Oximetry 98 99 99 Oxygen Delivery Exam 2 Const: General: comfortable and no acute distress HENMT: Face/Nose/Sinus: Normal nares present Mouth: Yes moist mucous membranes Eyes: General: appearance normal, both eyes and all related structures S clera: sclerae normal Pupils: Equal, round and reactive pupils present Neck: Neck: supple and no JVD Resp: Effort & Inspection: normal respiratory effort Auscultation: clear to auscultation bilaterally Cardio: Rate: regular rate Rhythm: regular rhythm GI: GI Palp: Yes Soft to palpation, No Tenderness to palpation present (GI) and No Guarding due to palpation present (GI) Auscultation: normal bowel sounds Skin: Other: bruising to arms Neuro: Speech: normal speech Sensory Exam: normal sensation Extrem: General: no edema and no pedal edema Psych: Other: Alert to self and pleasantly confused Results Labs 06/16/24 02:37 06/15/24 16:52 Labs: Short CBC 06/15/24 06/15/24 06/16/24 Range/Units 16:52 20:32 02:37 WBC 10.2 H (4.5-10.0) K/mm3 Hgb 11.6 L 10.9 L 10.3 L (12.0-15.0) g/dL Hct 37.2 35.3 L 33.9 L (37.0-47.0) % Plt Count 364 (150-375) k/mm3 BMP 06/15/24 16:52 Sodium 136 L Potassium 4.6 Chloride 101 Carbon Dioxide 23 BUN 24 H Creatinine 0.95 Glucose 212 H Calcium 6.6 L Liver Function 06/15/24 Range/Units 16:52 Total Bilirubin 0.2 (0.2-1.3) mg/dL AST 16 (14-36) U/L ALT 21 (6-35) U/L Alkaline Phosphatase 181 H (38-126) U/L Albumin 3.6 (3.5-5.1) g/dL
--- NOTE | 2024-06-16 08:10 | P.PNIM_ITS ---
Progress Note: A&P Assessment and Plan (1) GI bleed: Code(s): K92.2 - Gastrointestinal hemorrhage, unspecified Status: Acute Assessment and Plan: ED physician reports maroon colored stool on digital rectal exam. Per RN patient continues to have dark red stools H/H remains stable, 10.9/34.6 on am labs Iron panel WNL B12 and folate WNL Pantoprazole BID Diet: NPO DVT Px: SCDs. Not on anticoagulation chronically. Monitor serum electrolytes, CBC, hemoglobin/hematocrit q.8 hours. If hemoglobin drops below 7 transfuse packed red blood cells Monitor for bloody bowel movements,chest pain,SOB or dizziness/lightheadedness GI consulted Plan for EGD this afternoon to further evaluate (2) Hypocalcemia: Code(s): E83.51 - Hypocalcemia Status: Acute Assessment and Plan: Ca 6.6 on admission. Calcium gluconate IV given x1. Ca 6.8 on am labs, given another calcium gluconate IV x1 Ionized calcium ordered Mag and phos ordered Vit D levels ordered PTH ordered (3) Benign essential HTN: Code(s): I10 - Essential (primary) hypertension Status: Acute Assessment and Plan: Chronic Losartan 25 mg daily Lasix 40 mg daily Blood pressures reviewed and remain stable (4) Type 2 diabetes mellitus: Code(s): E11.9 - Type 2 diabetes mellitus without complications Status: Acute Assessment and Plan: - hypoglycemia protocol - POC blood glucose ACHS - home medication - lantus 10 units, lispro 5 units TIDWM, SSI, metformin 1000 mg BID - correct regimen ordered - lantus 10 units and SSI - A1C 8.2 Time Spent With Patient Time with patient: 25 - 35 minutes Subjective Date/time seen: 06/16/24 08:10 Interval history: 88-year-old female with history dementia, seizures, hypertension, hyperlipidemia, type 2 diabetes mellitus, and anxiety who presented to the hospital via EMS from [facility] for evaluation of dark stools. Patient is pleasant lying comfortably in bed with the clinical medical transcriptionist at bedside. She remains AO x2. She has no complaints denying chest pain, shortness a breath, palpitations, nausea/vomiting, abdominal pain. Per RN she continues to note dark red stools. Plan for an EGD today. Per patient is medically liaison she is due for a lumbar x-ray to re-evaluate the L1 burst fracture as seen in May. Will obtain the lumbar x-ray during this admission as patient has increased difficulty with transferring back and forth from facilities. Review of Systems Review of Systems: All systems reviewed & are unremarkable except as noted in HPI and below Exam Narrative: AF HR 59 RR 20 SPO2 98 BP 137/50 General: female in no acute respiratory distress who is nontoxic appearing, lying semi recumbent in bed. HEENT: Normocephalic. Atraumatic. Extraocular movement intact. Sclera clear and anicteric. No facial asymmetry. Chest: Lungs are clear to auscultation bilaterally. No wheezes or crackles. CV: Heart was regular rate and rhythm. Abd: Abdomen was soft. Nontender. Nondistended. Positive bowel sounds. Ext: No clubbing, cyanosis, or edema. DP pulses bilaterally. Neuro: Patient is alert and oriented x2 person, place. Speech is clear. Objective Data Vital Signs Vital Signs: Vital Signs - 24 hr 06/15/24 14:34 06/15/24 16:38 06/15/24 16:47 Temperature 97.9 F Pulse Rate 76 79 72 Respiratory Rate 16 27 H 16 Blood Pressure 134/60 124/82 125/57 L Pulse Oximetry 99 98 97 Oxygen Delivery Room Air 06/15/24 16:54 06/15/24 16:54 06/15/24 17:02 Temperature Pulse Rate 63 77 87 Respiratory Rate 18 21 H Blood Pressure 125/57 L 87/62 L Pulse Oximetry 99 100 Oxygen Delivery Room Air 06/15/24 17:10 06/15/24 19:15 06/15/24 22:00 Temperature 97.0 F L Pulse Rate 87 78 69 Respiratory Rate 25 H 16 20 Blood Pressure 137/79 129/75 144/62 H Pulse Oximetry 98 99 99 Oxygen Delivery Meds/Results Medications: Active Medications Generic Name Dose Route Start Last Admin Trade Name Freq PRN Reason Stop Dose Admin Acetaminophen 650 mg 06/15/24 18:38 Acetaminophen 325 Mg Tablet PO Q4H PRN Mild Pain (1-3) or Fever Al Hydrox/Mg Hydrox/Simethicone 10 ml 06/15/24 23:22 Mag Hydrox/Al Hydrox/Simeth 30 Ml Udc PO Q6H PRN Indigestion Artificial Tears 1 drop 06/15/24 23:24 Artificial Tears Ophth Soln 15 Ml Bottle EACH EYE TID PRN Dry Eye(s) Dextrose 12.5 gm 06/15/24 20:44 Dextrose 50% 25 Gm/50 Ml Syringe IV PUSH PRN PRN Hypoglycemia Protocol Escitalopram Oxalate 5 mg 06/16/24 09:00 Escitalopram Oxalate 5 Mg Tablet PO DAILY [facility] Furosemide 40 mg 06/16/24 09:00 Furosemide 40 Mg Tablet PO DAILY [facility] [place] Glucagon 1 mg 06/15/24 20:44 Glucagon For Inj 1 Mg Vial IM PRN PRN Hypoglycemia Protocol Glucose 15 gm 06/15/24 20:44 Glucose Oral Gel 15 Gm Of Glucse In 37.5 Gm Tube PO PRN PRN Hypoglycemia Protocol Dextrose 1,000 mls @ 100 mls/hr 06/15/24 20:44 Dextrose 5% 1,000 Ml IVPB PRN PRN Hypoglycemia Protocol Insulin Aspart 3 - 6 units 06/16/24 00:00 Insulin Aspart (*Bkc) 100 Units/Ml SUB-Q Q6HR [facility] Protocol Insulin Glargine 10 units 06/15/24 23:25 Insulin Glargine (*Bkc) 100 Units/Ml SUB-Q QHS [facility] [place] Levetiracetam 500 mg 06/16/24 09:00 Levetiracetam 500 Mg Tablet PO Q12HR [facility] [place] Memantine 5 mg 06/16/24 09:00 Memantine 5 Mg Tablet PO DAILY [facility] [place] Ondansetron HCl 4 mg 06/15/24 18:38 Ondansetron Inj 4 Mg/2 Ml Vial IV PUSH Q4H PRN Nausea Pantoprazole Sodium 40 mg 06/16/24 09:00 Pantoprazole Sodium Iv 40 Mg Vial IV PUSH Q12HR [facility] Thiamine HCl 100 mg 06/16/24 09:00 Thiamine Hcl 100 Mg Tablet PO QAM [facility] [place] Labs Labs: Laboratory Results - last 24 hr 06/15/24 06/15/24 06/15/24 16:52 20:32 23:12 WBC 10.2 H RBC 4.32 Hgb 11.6 L 10.9 L Hct 37.2 35.3 L MCV 86.1 MCH 26.9 MCHC 31.2 L RDW 15.2 H Plt Count 364 MPV 9.4 Immature Gran % (Auto) 1.1 H Neut % (Auto) 74.6 H Lymph % (Auto) 15.0 L [place] % (Auto) 7.1 Eos % (Auto) 1.5 Baso % (Auto) 0.7 Lymph # (Auto) 1.53 [place] # (Auto) 0.7 H Eos # (Auto) 0.2 Baso # (Auto) 0.1 Abs Immat Gran (auto) 0.11 H Absolute Neuts (auto) 7.6 H Absolute Nucleated RBC 0.000 Nucleated RBC % 0.0 PT 14.3 INR 1.1 APTT 25.8 Sodium 136 L Potassium 4.6 Chloride 101 Carbon Dioxide 23 Anion Gap 12 BUN 24 H Creatinine 0.95 Estim Creat Clear Calc 39 Estimated GFR 56 L Glucose 212 H POC Capillary Glucose 174 H Hemoglobin A1c 8.2 H Calcium 6.6 L Total Bilirubin 0.2 AST 16 ALT 21 Alkaline Phosphatase 181 H Total Protein 7.0 Albumin 3.6 Blood Type B Positive Antibody Screen Negative 06/16/24 02:37 WBC RBC Hgb 10.3 L Hct 33.9 L MCV MCH MCHC RDW Plt Count MPV Immature Gran % (Auto) Neut % (Auto) Lymph % (Auto) [place] % (Auto) Eos % (Auto) Baso % (Auto) Lymph # (Auto) [place] # (Auto) Eos # (Auto) Baso # (Auto) Abs Immat Gran (auto) Absolute Neuts (auto) Absolute Nucleated RBC Nucleated RBC % PT INR APTT Sodium Potassium Chloride Carbon Dioxide Anion Gap BUN Creatinine Estim Creat Clear Calc Estimated GFR Glucose POC Capillary Glucose Hemoglobin A1c Calcium Total Bilirubin AST ALT Alkaline Phosphatase Total Protein Albumin Blood Type Antibody Screen Quality VTE Prophylaxis VTE prophylaxis: mechanical ordered
[2024-06-16] MEDS: levETIRAcetam 500 MG TABLET PO ×2 (08:11→21:05)
[2024-06-16 08:51] LABS: Hematocrit 34.6 % (37.0-47.0); Hemoglobin 10.9 g/dL (12.0-15.0); Mean Corpuscular HGB Conc 31.5 g/dl (32-36); Mean Corpuscular Hemoglobin 27.3 pg (26-34); Mean Corpuscular Volume 86.7 fl (80-100); Mean Platelet Volume 9.6 fl (7.4-10.4); Platelet Count Result 324 k/mm3 (150-375); Red Blood Count 3.99 M/mm3 (4.2-5.4); Red Cell Distribution Width 15.1 % (11.5-14.5); White Blood Count 8.2 K/mm3 (4.5-10.0)
[2024-06-16 09:44] LABS: Anion Gap 8 mmol/L (4-12); Blood Urea Nitrogen 26 mg/dL (7-17); Calcium 6.8 mg/dL (8.4-10.2); Carbon Dioxide 26 mmol/L (22-30); Chloride 101 mmol/L (98-107); Estimated CRCL calculation 43 ml/min; Estimated Glomerular Filt Rate > 60; Glucose 182 mg/dL (65-110); Magnesium 1.8 mg/dL (1.6-2.3); Potassium 4.6 mmol/L (3.4-5.0); Sodium 135 mmol/L (137-145)
[2024-06-16 09:54] LABS: Iron 70 ug/dL (37-170)
[2024-06-16 09:58] LABS: Percent Iron Saturation 25 % (20-50)
[2024-06-16] MEDS: PANTOPRAZOLE SODIUM IV 40 MG VIAL IV PUSH (10:14)
[2024-06-16 10:36] VITALS: BMI 32.0
[2024-06-16 10:43] LABS: Folic Acid 10.1 ng/mL (2.76->20)
[2024-06-16 12:17] LABS: Glucose Point of Care 151 mg/dl (65-105)
[2024-06-16 14:00] VITALS: BP 124/70; PULSE 77; RESP 16; TEMP 35.8; O2SAT 100
[2024-06-16 14:14] LABS: Glucose Point of Care 148 mg/dl (65-105)
--- NOTE | 2024-06-16 14:18 | WPDANESEPPF ---
Anes - Initial Pre Proc Eval Procedure: Operation Date: 06/16/24 16:00 Proposed Procedures p Esophagogastroduodenoscopy - Bruce Bustamante MD Date/Time: 06/16/24 14:18 Surgeon: Karolina Jurado PA-C Pre Op Diagnosis: gi bleeding Patient Data Age: 88 Gender: F Height: 1.63 m Weight: 84.7 kg Last Vital Signs Temp 36.1 C L 06/16/24 06:00 Pulse 59 L 06/16/24 06:00 Resp 20 06/16/24 06:00 BP 137/50 L 06/16/24 06:00 Pulse Ox 98 06/16/24 06:00 O2 Del Method Room Air 06/16/24 08:10 Allergies Allergy/AdvReac Type Severity Reaction Status Date / Time bromocriptine (From Cycloset) Allergy Unknown Verified 06/15/24 19:55 ciprofloxacin (From Cipro) Allergy Other Verified 06/15/24 19:55 levofloxacin Allergy Other Verified 06/15/24 19:55 morphine Allergy Unknown Verified 06/15/24 19:55 Penicillins Allergy Other Verified 06/15/24 19:55 Quinolones Allergy Hives Verified 06/15/24 19:55 [id number]-WWW-OnW Reductase Allergy Unknown Verified 06/15/24 19:55 Inhibitor Sulfa (Sulfonamide Allergy Other Verified 06/15/24 19:55 Antibiotics) tetracycline Allergy Unknown Verified 06/15/24 19:55 warfarin Allergy Unknown Verified 06/15/24 19:55 cefuroxime AdvReac Mild Rash Verified 06/15/24 19:55 clindamycin AdvReac Hives Verified 06/15/24 19:55 Home Medications ?Medication ?Instructions ?Recorded ?Confirmed ?Type acetaminophen 325 mg tablet 650 mg PO Q4H PRN pain 05/28/24 06/15/24 History (Tylenol) aluminum-mag hydroxide-simethicone 10 ml PO Q6H PRN indigestion 05/28/24 06/15/24 History 400 mg-400 mg-40 mg/5 mL oral susp (Maalox Maximum Strength) aspirin 81 mg chewable tablet 81 mg PO DAILY 05/28/24 06/15/24 History glucagon HCl 1 mg solution for 1 mg subcut ONCE 05/28/24 06/15/24 History injection (Glucagon (HCl) Emergency Kit) insulin glargine 100 unit/mL 10 unit subcut DAILY 05/28/24 06/15/24 History subcutaneous solution (Lantus U-100 Insulin) insulin lispro 100 unit/mL 1 sliding scale dose subcut 05/28/24 06/15/24 History subcutaneous half-unit pen USEASDIRECTD (Humalog Karsten KwikPen (U-100)) insulin lispro 100 unit/mL 5 unit subcut .COMPLEX 05/28/24 06/15/24 History subcutaneous half-unit pen (Humalog Karsten KwikPen (U-100)) losartan 25 mg tablet 25 mg PO DAILY 05/28/24 06/15/24 History magnesium hydroxide 400 mg/5 mL 10 ml PO DAILY 05/28/24 06/15/24 History oral suspension (Milk of Magnesia) metformin 1,000 mg tablet 1,000 mg PO BID 05/28/24 06/15/24 History omeprazole 20 mg tablet,delayed 20 mg PO DAILY 05/28/24 06/15/24 History release ondansetron 4 mg disintegrating 4 mg PO Q6H PRN nausea and vomiting 05/28/24 06/15/24 History tablet polyethylene glycol 3350 17 gram 17 g PO DAILY 05/28/24 06/15/24 History oral powder packet (Miralax) sennosides 8.6 mg capsule (senna) 8.6 mg PO BID 05/28/24 06/15/24 History trolamine salicylate 10 % topical 1 applic topical TID PRN muscle 05/28/24 06/15/24 History cream (Pain Relief (trolamine pain salicylate)) levetiracetam 500 mg tablet 500 mg PO Q12HR #60 tabs 06/02/24 06/15/24 Rx (Keppra) thiamine HCl (vitamin B1) 100 mg 100 mg PO QAM #30 tabs 06/02/24 06/15/24 Rx tablet (Vitamin B-1) escitalopram oxalate 5 mg tablet 5 mg PO DAILY 06/15/24 06/15/24 History (Lexapro) furosemide 40 mg tablet 40 mg PO DAILY 06/15/24 06/15/24 History memantine 5 mg tablet (Namenda) 5 mg PO DAILY 06/15/24 06/15/24 History peg 400-propylene glycol (PF) 0.4 1 drp EACH EYE TID PRN dry eye(s) 06/15/24 06/15/24 History %-0.3 % eye drops in a dropperette (Lubricant Eye (PG-PEG 400) (PF)) Laboratory Tests 06/15/24 06/15/24 06/15/24 16:52 20:32 23:12 WBC 10.2 H K/mm3 (4.5-10.0) RBC 4.32 M/mm3 (4.2-5.4) Hgb 11.6 L g/dL 10.9 L g/dL (12.0-15.0) (12.0-15.0) Hct 37.2 % 35.3 L % (37.0-47.0) (37.0-47.0) MCV 86.1 fl (80-100) MCH 26.9 pg (26-34) MCHC 31.2 L g/dl (32-36) RDW 15.2 H % (11.5-14.5) Plt Count 364 k/mm3 (150-375) MPV 9.4 fl (7.4-10.4) Immature Gran % (Auto) 1.1 H % (0-0.5) Neut % (Auto) 74.6 H % (45.5-73.1) Lymph % (Auto) 15.0 L % (18.3-44.2) Jefferson % (Auto) 7.1 % (2.6-8.5) Eos % (Auto) 1.5 % (0-4.4) Baso % (Auto) 0.7 % (0.2-1.2) Lymph # (Auto) 1.53 K/mm3 (0.9-3.2) Jefferson # (Auto) 0.7 H K/mm3 (0.1-0.6) Eos # (Auto) 0.2 K/mm3 (0-0.3) Baso # (Auto) 0.1 K/mm3 (0.0-0.1) Abs Immat Gran (auto) 0.11 H K/mm3 (0.00-0.031) Absolute Neuts (auto) 7.6 H K/mm3 (1.3-6.7) Absolute Nucleated RBC 0.000 K/mm3 (0.0-0.012) Nucleated RBC % 0.0 % (0.0-0.2) PT 14.3 Seconds (11.1-14.7) INR 1.1 APTT 25.8 Seconds (22.3-36.8) Sodium 136 L mmol/L (137-145) Potassium 4.6 mmol/L (3.4-5.0) Chloride 101 mmol/L (98-107) Carbon Dioxide 23 mmol/L (22-30) Anion Gap 12 mmol/L (4-12) BUN 24 H mg/dL (7-17) Creatinine 0.95 mg/dL (0.7-1.0) Estim Creat Clear Calc 39 ml/min Estimated GFR 56 L (59 - ) Glucose 212 H mg/dL (65-110) POC Capillary Glucose 174 H mg/dl (65-105) Hemoglobin A1c 8.2 H % (<5.7) Calcium 6.6 L mg/dL (8.4-10.2) Magnesium Iron TIBC % Saturation Total Bilirubin 0.2 mg/dL (0.2-1.3) AST 16 U/L (14-36) ALT 21 U/L (6-35) Alkaline Phosphatase 181 H U/L (38-126) Total Protein 7.0 g/dL (6.3-8.2) Albumin 3.6 g/dL (3.5-5.1) Vitamin B12 Folate Blood Type B Positive Antibody Screen Negative 06/16/24 06/16/24 06/16/24 02:37 08:46 09:07 WBC 8.2 K/mm3 (4.5-10.0) RBC 3.99 L M/mm3 (4.2-5.4) Hgb 10.3 L g/dL 10.9 L g/dL (12.0-15.0) (12.0-15.0) Hct 33.9 L % 34.6 L % (37.0-47.0) (37.0-47.0) MCV 86.7 fl (80-100) MCH 27.3 pg (26-34) MCHC 31.5 L g/dl (32-36) RDW 15.1 H % (11.5-14.5) Plt Count 324 k/mm3 (150-375) MPV 9.6 fl (7.4-10.4) Immature Gran % (Auto) Neut % (Auto) Lymph % (Auto) Jefferson % (Auto) Eos % (Auto) Baso % (Auto) Lymph # (Auto) Jefferson # (Auto) Eos # (Auto) Baso # (Auto) Abs Immat Gran (auto) Absolute Neuts (auto) Absolute Nucleated RBC Nucleated RBC % PT INR APTT Sodium 135 L mmol/L (137-145) Potassium 4.6 mmol/L (3.4-5.0) Chloride 101 mmol/L (98-107) Carbon Dioxide 26 mmol/L (22-30) Anion Gap 8 mmol/L (4-12) BUN 26 H mg/dL (7-17) Creatinine 0.86 mg/dL (0.7-1.0) Estim Creat Clear Calc 43 ml/min Estimated GFR > 60 (59 - ) Glucose 182 H mg/dL (65-110) POC Capillary Glucose Hemoglobin A1c Calcium 6.8 L mg/dL (8.4-10.2) Magnesium 1.8 mg/dL (1.6-2.3) Iron 70 ug/dL (37-170) TIBC 279 ug/dL (261-462) % Saturation 25 % (20-50) Total Bilirubin AST ALT Alkaline Phosphatase Total Protein Albumin Vitamin B12 342.0 pg/mL (239-931) Folate 10.1 ng/mL (2.76->20) Blood Type Antibody Screen 06/16/24 06/16/24 12:14 14:10 WBC RBC Hgb Hct MCV MCH MCHC RDW Plt Count MPV Immature Gran % (Auto) Neut % (Auto) Lymph % (Auto) Jefferson % (Auto) Eos % (Auto) Baso % (Auto) Lymph # (Auto) Jefferson # (Auto) Eos # (Auto) Baso # (Auto) Abs Immat Gran (auto) Absolute Neuts (auto) Absolute Nucleated RBC Nucleated RBC % PT INR APTT Sodium Potassium Chloride Carbon Dioxide Anion Gap BUN Creatinine Estim Creat Clear Calc Estimated GFR Glucose POC Capillary Glucose 151 H mg/dl 148 H mg/dl (65-105) (65-105) Hemoglobin A1c Calcium Magnesium Iron TIBC % Saturation Total Bilirubin AST ALT Alkaline Phosphatase Total Protein Albumin Vitamin B12 Folate Blood Type Antibody Screen Patient hx anesthesia problems: none Family hx anesthesia problems: none Results Review: All pre-operative results and documents have been reviewed as part of the pre-operative evaluation. [facility] Past Medical History Medical History Pulmonary embolism Gastroesophageal reflux disease Deep venous thrombosis Osteoarthritis Hyperlipidemia Benign essential hypertension Peripheral vascular disease Epilepsy Chronic kidney disease, stage 3 Type 2 diabetes mellitus Fatty liver Alzheimer's dementia with anxiety Cholelithiasis Cerebrovascular disease Surgical History Surgical History History of cataract extraction History of tonsillectomy Family History Family History Other Unknown family medical history Social History Social History Social History: Healthcare power of commercial litigation attorney: Ambar Ball ([phone]). Emergency contact and ?healthcare advocate: Home Flores ([phone]). Code status: Do not resuscitate. Smoking status: Unknown if ever smoked Alcohol intake: never Substance use: never Do You Feel Safe in your Home?: Yes Lack of Transportation: No Lack of Food: Never True Current Housing: I Have Housing Concerned About Future Housing: No Difficulty Paying Gas/Electric Bills: No Difficulty Paying for Meds: No Currently Unemployed: No Education: Master's Degree or Higher Difficulty w/ Childcare or Family Care: No Spiritual care concerns: No Anes - Eval Final PreProcedure Day of Procedure 06/16/24 14:18 Patient weight: obese Heart: regular rate and rhythm Lungs: decreased breath sounds Airway: Mallampati scale class II Neurological: other (alert) Last oral intake: >/= 8 hours ASA classification: IV Emergent: no Anesthetic plan: proceed Anesthesia type and monitoring: general GIVS and standard monitoring Results Review: All pre-operative results and documents have been reviewed as part of the pre-operative evaluation. Informed Consent: The patient's anesthetic plan and its attendant risks and benefits were discussed with the patient/family/POA. Questions were solicited and answers provided to the satisfaction of the patient/family/POA.
[2024-06-16] MEDS: LACTATED RINGERS 1,000 ML 150 ML IV CONT (14:23)
[2024-06-16 15:23] VITALS: BP 126/97; PULSE 79; RESP 18; O2SAT 100
[2024-06-16 15:33] VITALS: BP 107/40; PULSE 73; RESP 18; O2SAT 99
[2024-06-16 15:43] VITALS: BP 105/50; PULSE 68; RESP 18; O2SAT 99
[2024-06-16] MEDS: MEMANTINE 5 MG TABLET PO (15:56)
[2024-06-16] MEDS: THIAMINE HCL 100 MG TABLET PO (15:56)
[2024-06-16] MEDS: ESCITALOPRAM OXALATE 5 MG TABLET PO (15:56)
[2024-06-16] MEDS: FUROSEMIDE 40 MG TABLET PO (15:56)
[2024-06-16] MEDS: CALCIUM GLUC 1,000 MG/NS 50 ML 1,000 MG/50 ML BAG 100 MG IVPB (15:56)
[2024-06-16 16:58] LABS: Glucose Point of Care 161 mg/dl (65-105)
[2024-06-16 20:57] LABS: Glucose Point of Care 297 mg/dl (65-105)
[2024-06-16] MEDS: INSULIN GLARGINE (*BKC) 100 UNITS/ML 10 UNITS SUB-Q (21:06)
[2024-06-16 21:20] VITALS: BP 131/60; PULSE 73; RESP 18; TEMP 36.2; O2SAT 95
[2024-06-17 05:21] VITALS: BP 150/89; PULSE 71; RESP 18; TEMP 36.1; O2SAT 95
[2024-06-17 05:29] LABS: Hematocrit 30.7 % (37.0-47.0); Hemoglobin 9.8 g/dL (12.0-15.0); Mean Corpuscular HGB Conc 31.9 g/dl (32-36); Mean Corpuscular Hemoglobin 27.1 pg (26-34); Mean Platelet Volume 9.2 fl (7.4-10.4); Platelet Count Result 288 k/mm3 (150-375); Red Blood Count 3.61 M/mm3 (4.2-5.4)
[2024-06-17 05:40] LABS: Alanine Aminotransferase 17 U/L (6-35); Albumin Level 3.2 g/dL (3.5-5.1); Alkaline Phosphatase 125 U/L (38-126); Anion Gap 9 mmol/L (4-12); Aspartate Amino Transferase 14 U/L (14-36); Bilirubin,Total 0.4 mg/dL (0.2-1.3); Blood Urea Nitrogen 26 mg/dL (7-17); Calcium 6.4 mg/dL (8.4-10.2); Carbon Dioxide 28 mmol/L (22-30); Chloride 98 mmol/L (98-107); Estimated CRCL calculation 38 ml/min; Estimated Glomerular Filt Rate 54; Glucose 201 mg/dL (65-110); Magnesium 1.6 mg/dL (1.6-2.3); Phosphorus 5.2 mg/dL (2.5-4.5); Potassium 4.3 mmol/L (3.4-5.0); Sodium 135 mmol/L (137-145)
[2024-06-17 06:21] LABS: Vitamin D 25 Hydroxy 30.4 ng/mL
[2024-06-17 08:50] LABS: Glucose Point of Care 207 mg/dl (65-105)
[2024-06-17] MEDS: LOSARTAN POTASSIUM 25 MG TABLET PO (09:15)
[2024-06-17] MEDS: ESCITALOPRAM OXALATE 5 MG TABLET PO (09:15)
[2024-06-17] MEDS: levETIRAcetam 500 MG TABLET PO ×2 (09:15→20:46)
[2024-06-17] MEDS: FUROSEMIDE 40 MG TABLET PO (09:15)
[2024-06-17] MEDS: MEMANTINE 5 MG TABLET PO (09:15)
[2024-06-17] MEDS: THIAMINE HCL 100 MG TABLET PO (09:16)
[2024-06-17] MEDS: INSULIN ASPART (*BKC) 100 UNITS/ML SUB-Q ×3 (09:25→17:21)
[2024-06-17 11:38] LABS: Glucose Point of Care 212 mg/dl (65-105)
--- NOTE | 2024-06-17 13:57 | P.PNIM_ITS ---
Progress Note: A&P Assessment and Plan (1) GI bleed: Code(s): K92.2 - Gastrointestinal hemorrhage, unspecified Status: Acute Assessment and Plan: ED physician reports maroon colored stool on digital rectal exam. Per RN patient continues to have dark red stools H/H remains stable, 10.9/34.6 on am labs Iron panel WNL B12 and folate WNL Pantoprazole BID Diet: NPO DVT Px: SCDs. Not on anticoagulation chronically. Monitor serum electrolytes, CBC, hemoglobin/hematocrit q.8 hours. If hemoglobin drops below 7 transfuse packed red blood cells Monitor for bloody bowel movements,chest pain,SOB or dizziness/lightheadedness GI consulted Plan for EGD this afternoon to further evaluate egd: unremakable f/u with gi as an oupt (2) Hypocalcemia: Code(s): E83.51 - Hypocalcemia Status: Acute Assessment and Plan: Ca 6.6 on admission. Calcium gluconate IV given x1. Ca 6.8 on am labs, given another calcium gluconate IV x1 Ionized calcium ordered Mag and phos ordered Vit D levels ordered PTH ordered -pending (3) Benign essential HTN: Code(s): I10 - Essential (primary) hypertension Status: Acute Assessment and Plan: Chronic Losartan 25 mg daily Lasix 40 mg daily Blood pressures reviewed and remain stable (4) Type 2 diabetes mellitus: Code(s): E11.9 - Type 2 diabetes mellitus without complications Status: Acute Assessment and Plan: - hypoglycemia protocol - POC blood glucose ACHS - home medication - lantus 10 units, lispro 5 units TIDWM, SSI, metformin 1000 mg BID - correct regimen ordered - lantus 10 units and SSI - A1C 8.2 Time Spent With Patient Time with patient: 25 - 35 minutes Subjective Date/time seen: 06/17/24 13:57 Interval history: 88-year-old female with history dementia, seizures, hypertension, hyperli pidemia, type 2 diabetes mellitus, and anxiety who presented to the hospital via EMS from [facility] for evaluation of dark stools. Patient is seen and examined. She remains AO x2. She has no complaints denying chest pain, shortness a breath, palpitations, nausea/vomiting, abdominal pain. EGD yesterday-unremarkable. Per patient is medically liaison she is due for a lumbar x-ray to re-evaluate the L1 burst fracture as seen in May. IMPRESSION: 1. L1 burst fracture with no change in 20% anterior to central vertebral body height loss. 2. Mild S-shaped scoliosis of the lumbar and lower thoracic spine with severe lower lumbar spondylosis. Review of Systems Review of Systems: 12 systems were reviewed and are negativ e except for as per HPI. All systems reviewed & are unremarkable except as noted in HPI and below Exam Narrative: AF HR 59 RR 20 SPO2 98 BP 137/50 General: female in no acute respiratory distress who is nontoxic appearing, lying semi recumbent in bed. HEENT: Normocephalic. Atraumatic. Extraocular movement intact. Sclera clear and anicteric. No facial asymmetry. Chest: Lungs are clear to auscultation bilaterally. No wheezes or crackles. CV: Heart was regular rate and rhythm. Abd: Abdomen was soft. Nontender. Nondistended. Positive bowel sounds. Ext: No clubbing, cyanosis, or edema. DP pulses bilaterally. Neuro: Patient is alert and oriented x2 person, place. Speech is clear. Objective Data Vital Signs Vital Signs: Vital Signs - 24 hr 06/16/24 14:00 06/16/24 15:23 06/16/24 15:33 Temperature 96.5 F L Pulse Rate 77 79 73 Respiratory Rate 16 18 18 Blood Pressure 124/70 126/97 H 107/40 L Pulse Oximetry 100 100 99 Oxygen Delivery Room Air Nasal Cannula Room Air Oxygen Flow Rate 4 06/16/24 15:43 06/16/24 21:20 06/17/24 05:21 Temperature 97.1 F L 96.9 F L Pulse Rate 68 73 71 Respiratory Rate 18 18 18 Blood Pressure 105/50 L 131/60 150/89 H Pulse Oximetry 99 95 95 Oxygen Delivery Room Air Oxygen Flow Rate 06/17/24 09:15 Temperature Pulse Rate Respiratory Rate Blood Pressure Pulse Oximetry Oxygen Delivery Room Air Oxygen Flow Rate Intake/Output Intake/Output: Intake & Output 06/14/24 06/15/24 06/16/24 06/17/24 23:59 23:59 23:59 23:59 Intake Total 470 675 Balance 470 675 Meds/Results Medications: Active Medications Generic Name Dose Route Start Last Admin Trade Name Freq PRN Reason Stop Dose Admin Acetaminophen 650 mg 06/15/24 18:38 Acetaminophen 325 Mg Tablet PO Q4H PRN Mild Pain (1-3) or Fever Al Hydrox/Mg Hydrox/Simethicone 10 ml 06/15/24 23:22 Mag Hydrox/Al Hydrox/Simeth 30 Ml Udc PO Q6H PRN Indigestion Artificial Tears 1 drop 06/15/24 23:24 Artificial Tears Ophth Soln 15 Ml Bottle EACH EYE TID PRN Dry Eye(s) Dextrose 12.5 gm 06/15/24 20:44 Dextrose 50% 25 Gm/50 Ml Syringe IV PUSH PRN PRN Hypoglycemia Protocol Escitalopram Oxalate 5 mg 06/16/24 09:00 06/17/24 09:15 Escitalopram Oxalate 5 Mg Tablet PO 5 mg DAILY OSCAR Administration Furosemide 40 mg 06/16/24 09:00 06/17/24 09:15 Furosemide 40 Mg Tablet PO 40 mg DAILY OSCAR Administration Glucagon 1 mg 06/15/24 20:44 Glucagon For Inj 1 Mg Vial IM PRN PRN Hypoglycemia Protocol Glucose 15 gm 06/15/24 20:44 Glucose Oral Gel 15 Gm Of Glucse In 37.5 Gm Tube PO PRN PRN Hypoglycemia Protocol Dextrose 1,000 mls @ 100 mls/hr 06/15/24 20:44 Dextrose 5% 1,000 Ml IVPB PRN PRN Hypoglycemia Protocol Insulin Aspart 3 - 6 units 06/16/24 17:00 06/17/24 12:36 Insulin Aspart (*Bkc) 100 Units/Ml SUB-Q 3 units TIDWM OSCAR Administration Protocol Insulin Glargine 10 units 06/15/24 23:25 06/16/24 21:06 Insulin Glargine (*Bkc) 100 Units/Ml SUB-Q 10 units QHS OSCAR Administration Levetiracetam 500 mg 06/16/24 09:00 06/17/24 09:15 Levetiracetam 500 Mg Tablet PO 500 mg Q12HR OSCAR Administration Losartan Potassium 25 mg 06/17/24 09:00 06/17/24 09:15 Losartan Potassium 25 Mg Tablet PO 25 mg DAILY OSCAR Administration Memantine 5 mg 06/16/24 09:00 06/17/24 09:15 Memantine 5 Mg Tablet PO 5 mg DAILY [facility] Administration Ondansetron HCl 4 mg 06/15/24 18:38 Ondansetron Inj 4 Mg/2 Ml Vial IV PUSH Q4H PRN Nausea Thiamine HCl 100 mg 06/16/24 09:00 06/17/24 09:16 Thiamine Hcl 100 Mg Tablet PO 100 mg QAM OSCAR Administration Radiology Results: ITS Impressions Lumbar Spine X-Ray 06/16/24 16:50 IMPRESSION: 1. L1 burst fracture with no change in 20% anterior to central vertebral body height loss. 2. Mild S-shaped scoliosis of the lumbar and lower thoracic spine with severe lower lumbar spondylosis. Labs Labs: Laboratory Results - last 24 hr 06/16/24 06/16/24 06/16/24 14:10 16:55 20:53 WBC RBC Hgb Hct MCV MCH MCHC RDW Plt Count MPV Sodium Potassium Chloride Carbon Dioxide Anion Gap BUN Creatinine Estim Creat Clear Calc Estimated GFR Glucose POC Capillary Glucose 148 H 161 H 297 H Calcium Phosphorus Magnesium Total Bilirubin AST ALT Alkaline Phosphatase Total Protein Albumin Vitamin D 25-Hydroxy 06/17/24 06/17/24 06/17/24 05:10 08:42 11:30 WBC 7.0 RBC 3.61 L Hgb 9.8 L Hct 30.7 L MCV 85.0 MCH 27.1 MCHC 31.9 L RDW 15.0 H Plt Count 288 MPV 9.2 Sodium 135 L Potassium 4.3 Chloride 98 Carbon Dioxide 28 Anion Gap 9 BUN 26 H Creatinine 0.97 Estim Creat Clear Calc 38 Estimated GFR 54 L Glucose 201 H POC Capillary Glucose 207 H 212 H Calcium 6.4 L Phosphorus 5.2 H Magnesium 1.6 Total Bilirubin 0.4 AST 14 ALT 17 Alkaline Phosphatase 125 Total Protein 6.0 L Albumin 3.2 L Vitamin D 25-Hydroxy 30.4 Quality VTE Prophylaxis VTE prophylaxis: mechanical ordered
[2024-06-17 14:00] VITALS: BP 144/77; PULSE 74; RESP 18; TEMP 36.3; O2SAT 96
--- NOTE | 2024-06-17 16:23 | PC.NURSE ---
On 06/17/24, the student, Sybil Pizano, provided care and completed [facility] documentation on this patient. I have reviewed the student's documentation and agree with the findings.
[2024-06-17 16:44] LABS: Glucose Point of Care 216 mg/dl (65-105)
--- NOTE | 2024-06-17 16:49 | WPDGIPROGNO ---
Progress Note: A&P Assessment and Plan (1) GI bleed: Code(s): K92.2 - Gastrointestinal hemorrhage, unspecified Status: Acute Assessment and Plan: egd no changes wonder if could have been perianal or even diverticular source monitor for now no need of colonoscopy given advanced age (2) Type 2 diabetes mellitus: Code(s): E11.9 - Type 2 diabetes mellitus without complications Status: Acute (3) Dementia with anxiety: Qualifiers: Dementia type: Alzheimer's Alzheimer's disease onset: late onset Dementia severity: moderate Qualified Code(s): G30.1 - Alzheimer's disease with late onset; F02.B4 - Dementia in other diseases classified elsewhere, moderate, with anxiety Code(s): F03.94 - Unspecified dementia, unspecified severity, with anxiety Status: Acute (4) Colon, diverticulosis: Code(s): K57.30 - Diverticulosis of large intestine without perforation or abscess without bleeding Status: Acute (5) Anemia: Code(s): D64.9 - Anemia, unspecified Status: Acute Assessment and Plan: no more overt gib monitor Subjective Date/time seen: 06/17/24 16:49 Interval history: no new events, pleasantly confused egd no findings yesterday Review of Systems Review of Systems: All systems reviewed & are unremarkable except as noted in HPI and below Exam Const: General: comfortable and no acute distress HENMT: Face/Nose/Sinus: Normal nares present Eyes: General: appearance normal, both eyes and all related structures Neck: Neck: no JVD Resp: Auscultation: clear to auscultation bilaterally Cardio: Rate: regular rate Rhythm: regular rhythm GI: Inspection: non-distended GI Palp: Yes Soft to palpation and No Tenderness to palpation present (GI) Skin: General skin exam: normal color Neuro: Speech: normal speech Other: awake and alert x2 Extrem: General: normal to inspection Objective Data Vital Signs Vital Signs: Vital Signs - 24 hr 06/16/24 21:20 06/17/24 05:21 06/17/24 09:15 Temperature 97.1 F L 96.9 F L Pulse Rate 73 71 Respiratory Rate 18 18 Blood Pressure 131/60 150/89 H Pulse Oximetry 95 95 Oxygen Delivery Room Air 06/17/24 14:00 Temperature 97.3 F L Pulse Rate 74 Respiratory Rate 18 Blood Pressure 144/77 H Pulse Oximetry 96 Oxygen Delivery Intake/Output Intake/Output: Intake & Output 06/14/24 06/15/24 06/16/24 06/17/24 23:59 23:59 23:59 23:59 Intake Total 470 675 Balance 470 675 Meds/Results Medications: Active Medications Generic Name Dose Route Start Last Admin Trade Name Freq PRN Reason Stop Dose Admin Acetaminophen 650 mg 06/15/24 18:38 Acetaminophen 325 Mg Tablet PO Q4H PRN Mild Pain (1-3) or Fever Al Hydrox/Mg Hydrox/Simethicone 10 ml 06/15/24 23:22 Mag Hydrox/Al Hydrox/Simeth 30 Ml Udc PO Q6H PRN Indigestion Artificial Tears 1 drop 06/15/24 23:24 Artificial Tears Ophth Soln 15 Ml Bottle EACH EYE TID PRN Dry Eye(s) Dextrose 12.5 gm 06/15/24 20:44 Dextrose 50% 25 Gm/50 Ml Syringe IV PUSH PRN PRN Hypoglycemia Protocol Escitalopram Oxalate 5 mg 06/16/24 09:00 06/17/24 09:15 Escitalopram Oxalate 5 Mg Tablet PO 5 mg DAILY OSCAR Administration Furosemide 40 mg 06/16/24 09:00 06/17/24 09:15 Furosemide 40 Mg Tablet PO 40 mg DAILY OSCAR Administration Glucagon 1 mg 06/15/24 20:44 Glucagon For Inj 1 Mg Vial IM PRN PRN Hypoglycemia Protocol Glucose 15 gm 06/15/24 20:44 Glucose Oral Gel 15 Gm Of Glucse In 37.5 Gm Tube PO PRN PRN Hypoglycemia Protocol Dextrose 1,000 mls @ 100 mls/hr 06/15/24 20:44 Dextrose 5% 1,000 Ml IVPB PRN PRN Hypoglycemia Protocol Insulin Aspart 3 - 6 units 06/16/24 17:00 06/17/24 12:36 Insulin Aspart (*Bkc) 100 Units/Ml SUB-Q 3 units TIDWM OSCAR Administration Protocol Insulin Glargine 10 units 06/15/24 23:25 06/16/24 21:06 Insulin Glargine (*Bkc) 100 Units/Ml SUB-Q 10 units QHS OSCAR Administration Levetiracetam 500 mg 06/16/24 09:00 06/17/24 09:15 Levetiracetam 500 Mg Tablet PO 500 mg Q12HR OSCAR Administration Losartan Potassium 25 mg 06/17/24 09:00 06/17/24 09:15 Losartan Potassium 25 Mg Tablet PO 25 mg DAILY OSCAR Administration Memantine 5 mg 06/16/24 09:00 06/17/24 09:15 Memantine 5 Mg Tablet PO 5 mg DAILY OSCAR Administration Ondansetron HCl 4 mg 06/15/24 18:38 Ondansetron Inj 4 Mg/2 Ml Vial IV PUSH Q4H PRN Nausea Thiamine HCl 100 mg 06/16/24 09:00 06/17/24 09:16 Thiamine Hcl 100 Mg Tablet PO 100 mg QAM OSCAR Administration Radiology Results: ITS Impressions Lumbar Spine X-Ray 06/16/24 16:50 IMPRESSION: 1. L1 burst fracture with no change in 20% anterior to central vertebral body height loss. 2. Mild S-shaped scoliosis of the lumbar and lower thoracic spine with severe lower lumbar spondylosis. Labs Labs: Laboratory Results - last 24 hr 06/16/24 06/16/24 06/17/24 16:55 20:53 05:10 WBC 7.0 RBC 3.61 L Hgb 9.8 L Hct 30.7 L MCV 85.0 MCH 27.1 MCHC 31.9 L RDW 15.0 H Plt Count 288 MPV 9.2 Sodium 135 L Potassium 4.3 Chloride 98 Carbon Dioxide 28 Anion Gap 9 BUN 26 H Creatinine 0.97 Estim Creat Clear Calc 38 Estimated GFR 54 L Glucose 201 H POC Capillary Glucose 161 H 297 H Calcium 6.4 L Phosphorus 5.2 H Magnesium 1.6 Total Bilirubin 0.4 AST 14 ALT 17 Alkaline Phosphatase 125 Total Protein 6.0 L Albumin 3.2 L Vitamin D 25-Hydroxy 30.4 06/17/24 06/17/24 06/17/24 08:42 11:30 16:35 WBC RBC Hgb Hct MCV MCH MCHC RDW Plt Count MPV Sodium Potassium Chloride Carbon Dioxide Anion Gap BUN Creatinine Estim Creat Clear Calc Estimated GFR Glucose POC Capillary Glucose 207 H 212 H 216 H Calcium Phosphorus Magnesium Total Bilirubin AST ALT Alkaline Phosphatase Total Protein Albumin Vitamin D 25-Hydroxy
[2024-06-17] MEDS: INSULIN GLARGINE (*BKC) 100 UNITS/ML 10 UNITS SUB-Q (20:46)
[2024-06-17 20:47] VITALS: BP 121/55; PULSE 74; RESP 18; TEMP 36.6; O2SAT 97
[2024-06-17 22:14] LABS: Glucose Point of Care 231 mg/dl (65-105)
[2024-06-18 05:49] VITALS: BP 133/45; PULSE 69; RESP 16; TEMP 36.4; O2SAT 98
[2024-06-18 06:02] LABS: Hematocrit 30.5 % (37.0-47.0); Hemoglobin 9.5 g/dL (12.0-15.0); Mean Corpuscular HGB Conc 31.1 g/dl (32-36); Mean Corpuscular Hemoglobin 26.9 pg (26-34); Mean Corpuscular Volume 86.4 fl (80-100); Mean Platelet Volume 9.7 fl (7.4-10.4); Platelet Count Result 284 k/mm3 (150-375); Red Blood Count 3.53 M/mm3 (4.2-5.4); Red Cell Distribution Width 15.2 % (11.5-14.5); White Blood Count 8.7 K/mm3 (4.5-10.0)
[2024-06-18 06:14] LABS: Alanine Aminotransferase 17 U/L (6-35); Albumin Level 3.2 g/dL (3.5-5.1); Alkaline Phosphatase 133 U/L (38-126); Anion Gap 8 mmol/L (4-12); Aspartate Amino Transferase 16 U/L (14-36); Bilirubin,Total 0.4 mg/dL (0.2-1.3); Blood Urea Nitrogen 26 mg/dL (7-17); Carbon Dioxide 30 mmol/L (22-30); Chloride 97 mmol/L (98-107); Estimated CRCL calculation 33 ml/min; Estimated Glomerular Filt Rate 46; Glucose 206 mg/dL (65-110); Potassium 3.7 mmol/L (3.4-5.0); Sodium 135 mmol/L (137-145)
[2024-06-18 08:20] LABS: Glucose Point of Care 197 mg/dl (65-105)
[2024-06-18] MEDS: MEMANTINE 5 MG TABLET PO (08:26)
[2024-06-18] MEDS: ESCITALOPRAM OXALATE 5 MG TABLET PO (08:27)
[2024-06-18] MEDS: FUROSEMIDE 40 MG TABLET PO (08:27)
[2024-06-18] MEDS: LOSARTAN POTASSIUM 25 MG TABLET PO (08:27)
[2024-06-18] MEDS: levETIRAcetam 500 MG TABLET PO (08:27)
[2024-06-18] MEDS: THIAMINE HCL 100 MG TABLET PO (08:27)
[2024-06-18] MEDS: CALCIUM GLUCONATE 1,000 MG/10 ML VIAL 1000 MG IV PUSH (10:02)
[2024-06-18] MEDS: SODIUM CHLORIDE 0.9% IV 50 ML (10:06)
--- NOTE | 2024-06-18 10:40 | PCNFU ---
Nutrition Follow-Up Complete: Inadequate energy intake related to NPO status as evidenced by current diet orders Diet order - Resolved. Pt diet advanced Goal: Pt current nutrition is Diabetic consistent carb diet, Glucerna BID (220 kcal, 10 g protein each). Nutrition recommendation: No new recommendations. Continue current nutrition care plan and orders. Agree with orders Last recorded weight is 83 kg. Bowel Motility: +3 BMs 06/17/24 Labs Reviewed: Hgb 9.5, Hct 30.5, Alb 3.2, Na 135, BUN 26, Cre 1.13, Glu 206, PO4 5.2 Meds Noted: Lasix, Lantus, novolog, Zofran Skin: No skin issues Additional Notes: Intakes are fair, 10-100% overall. Supplements are on. COntinue current orders. Monitor diet orders, intake, wt, labs. Follow up in 3 days.
[2024-06-18 11:46] LABS: Glucose Point of Care 248 mg/dl (65-105)
--- NOTE | 2024-06-18 12:09 | P.DS_ITS ---
DS: Admitting Diagnosis Discharge Date 06/18 Admitting Diagnosis dark stool DS: Discharge Diagnosis Discharge Diagnosis (1) GI bleed: Code(s): K92.2 - Gastrointestinal hemorrhage, unspecified Status: Acute (2) Hypocalcemia: Code(s): E83.51 - Hypocalcemia Status: Acute (3) Benign essential HTN: Code(s): I10 - Essential (primary) hypertension Status: Acute (4) Type 2 diabetes mellitus: Code(s): E11.9 - Type 2 diabetes mellitus without complications Status: Acute Assessment and Plan: - DS: Summary Hospital Course Hospital Course: 88-year-old female with history dementia, seizures, hypertension, hyperlipidemia, type 2 diabetes mellitus, and anxiety who presented to the hospital via EMS from [facility] for evaluation of dark stools. GI was consulted. EGD done: egd no changes wonder if could have been perianal or even diverticular source monitor for now no need of colonoscopy given advanced age No more reports of dark stools. Hg/Hch was stable. Mental state remained at her baseline, was stable for discharge. Will order repeated cbc in few days to ensure stable. Pt ca level was low- 6.6, was given calcium gluconate iv x 2 and started on calcium/vit d supplements. 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 IMPRESSION: 1. L1 burst fracture with no change in 20% anterior to central vertebral body height loss. 2. Mild S-shaped scoliosis of the lumbar and lower thoracic spine with severe lower lumbar spondylosis. Status at Discharge Functional status at discharge: uses cane/walker Overall status at discharge: patient is progressing back to baseline Time Spent with Patient Time attestation: Total time spent providing and/or coordinating discharge services: Time spent: Greater than 30 minutes Exam Narrative: General: female in no acute respiratory distress who is nontoxic appearing, lying semi recumbent in bed. HEENT: Normocephalic. Atraumatic. Extraocular movement intact. Sclera clear and anicteric. No facial asymmetry. Chest: Lungs are clear to auscultation bilaterally. No wheezes or crackles. CV: Heart was regular rate and rhythm. Abd: Abdomen was soft. Nontender. Nondistended. Positive bowel sounds. Ext: No clubbing, cyanosis, or edema. DP pulses bilaterally. Neuro: Patient is alert and oriented x2 person, place. Speech is clear. Const: General: comfortable DS: Data Data Completed and Pending Labs on day of discharge: Labs from last 24 hours 06/18/24 06/18/24 06/18/24 11:40 08:16 05:35 WBC 8.7 RBC 3.53 L Hgb 9.5 L Hct 30.5 L MCV 86.4 MCH 26.9 MCHC 31.1 L RDW 15.2 H Plt Count 284 MPV 9.7 Sodium 135 L Potassium 3.7 Chloride 97 L Carbon Dioxide 30 Anion Gap 8 BUN 26 H Creatinine 1.13 H Estim Creat Clear Calc 33 Estimated GFR 46 L Glucose 206 H POC Capillary Glucose 248 H 197 H Calcium 6.0 L Total Bilirubin 0.4 AST 16 ALT 17 Alkaline Phosphatase 133 H Total Protein 6.0 L Albumin 3.2 L 06/17/24 06/17/24 20:45 16:35 WBC RBC Hgb Hct MCV MCH MCHC RDW Plt Count MPV Sodium Potassium Chloride Carbon Dioxide Anion Gap BUN Creatinine Estim Creat Clear Calc Estimated GFR Glucose POC Capillary Glucose 231 H 216 H Calcium Total Bilirubin AST ALT Alkaline Phosphatase Total Protein Albumin Discharge Plan Discharge Attending physician on discharge: Augustus Ivy Discharging Clinician: Sheeba Billings Patient Disposition: NH Assisted/Asst Living Activity: july shower Diet: diabetic Patient Instructions: Antibiotic Form Patient Language: Mohawk Stand Alone Forms: General Discharge Information Follow-up/Referrals: Adeola,Clive Fish DO [Primary Care Provider] - 2 Weeks Discharge Medications: New calcium carbonate-vitamin D3 [Oyster Shell Calcium-Vit D3] 250 mg-3.125 mcg (125 unit) Tablet 1 tablet PO DAILY@0800 Qty: 90 0RF Continued escitalopram oxalate [Lexapro] 5 mg tablet 5 mg PO DAILY memantine [Namenda] 5 mg tablet 5 mg PO DAILY Lubricant Eye (PG-PEG 400)(PF) 0.4-0.3 % dropperette 1 drp EACH EYE TID PRN (Reason: dry eye(s)) furosemide 40 mg tablet 40 mg PO DAILY aspirin 81 mg tablet,chewable 81 mg PO DAILY glucagon HCl [Glucagon (HCl) Emergency Kit] 1 mg recon soln 1 mg subcut ONCE insulin lispro [Humalog Karsten KwikPen U-100] 100 unit/mL insulin pen, half- unit 5 unit subcut .COMPLEX Rx Instructions: 5 units subcutaneously with meals; insulin lispro [Humalog Karsten KwikPen U-100] 100 unit/mL insulin pen, half- unit 1 sliding scale dose subcut USEASDIRECTD insulin glargine [Lantus U-100 Insulin] 100 unit/mL solution 10 unit subcut DAILY Patient Comments: QPM losartan 25 mg tablet 25 mg PO DAILY alum-mag hydroxide-simeth [Maalox Maximum Strength] 400-400-40 mg/5 mL suspension 10 ml PO Q6H PRN (Reason: indigestion) metformin 1,000 mg tablet 1,000 mg PO BID magnesium hydroxide [Milk of Magnesia] 400 mg/5 mL suspension 10 ml PO DAILY omeprazole 20 mg tablet,delayed release (DR/EC) 20 mg PO DAILY ondansetron 4 mg tablet,disintegrating 4 mg PO Q6H PRN (Reason: nausea and vomiting) trolamine salicylate [Pain Relief (trolamine salicy)] 10 % cream 1 applic topical TID PRN (Reason: muscle pain) senna 8.6 mg capsule 8.6 mg PO BID acetaminophen [Tylenol] 325 mg tablet 650 mg PO Q4H PRN (Reason: pain) polyethylene glycol 3350 [Miralax] 17 gram powder in packet 17 g PO DAILY levetiracetam [Keppra] 500 mg Tablet 500 mg PO Q12HR Qty: 60 0RF thiamine HCl (vitamin B1) [Vitamin B-1] 100 mg Tablet 100 mg PO QAM Qty: 30 0RF Other Ambulatory Orders: Basic Metabolic Panel (Routine) Timeframe: 1 Week Location: Determined by Patient Ordered By: Sheeba Billings Complete Blood Count no Diff (Routine) Timeframe: 1 Week Location: Determined by Patient Ordered By: Sheeba Billings Date of admission: 06/16/24 10:53 Primary Care Provider: VidalClive Admitting Provider: Guerita Almazan Attending physician on admission: Karolina Jurado Condition: Stable Quality VTE Prophylaxis VTE prophylaxis: mechanical ordered Hospitalist MIPS Heart Failure (Exclusion) Patient has history of Heart Transplant or Left Ventricular Assistive Device?: No IF YES, STOP HERE Heart Failure (Qualifier) Patient has current or prior documentation of LVEF less than or equal to 40%, or mod/servere depressed LVSF?: No IF NO, STOP HERE
[2024-06-18] MEDS: CALCIUM/VITAMIN D 250 MG/3.125 MCG (125 I.U.) TABLET 1 TABLET PO (13:08)
[2024-06-18] MEDS: INSULIN ASPART (*BKC) 100 UNITS/ML SUB-Q ×2 (13:10→17:13)
[2024-06-18 14:00] VITALS: BP 137/52; PULSE 81; RESP 16; TEMP 36.3; O2SAT 94
--- NOTE | 2024-06-18 16:07 | PC.NURSE ---
On 06/18/24, the student, Sybil Pizano, provided care and completed [facility] documentation on this patient. I have reviewed the student's documentation and agree with the findings.
[2024-06-18 17:02] LABS: Glucose Point of Care 275 mg/dl (65-105)
[2024-06-25 23:44] LABS: Parathyroid Hormone Related Pr 12 pg/mL (11-20)
== END 2024-06-18 17:40 | DRG 378 ==
LOC: ANHED 18:45 → ANH3MED 19:47
PROVIDERS: Internal Medicine Gastroenterology; Physician Assistant; Student in an Organized Health Care Education/Training Program; Admitting Provider Internal Medicine; Emergency Provider Emergency Medicine; PCP Internal Medicine; Visit Provider Nurse Practitioner
PROC: 0DJ08ZZ Inspection of Upper Intestinal Tract, Via Natural or Artificial Opening Endoscopic (ICD-10-PCS; principal; 2024-06-16 16:00)
DX: K92.2 Gastrointestinal hemorrhage, unspecified (principal); F02.84 Dementia in other diseases classified elsewhere, unspecified severity, with anxiety; I12.9 Hypertensive chronic kidney disease with stage 1 through stage 4 chronic kidney disease, or unspecified chronic kidney disease; N18.30 Chronic kidney disease, stage 3 unspecified; E11.22 Type 2 diabetes mellitus with diabetic chronic kidney disease; E11.51 Type 2 diabetes mellitus with diabetic peripheral angiopathy without gangrene; E83.51 Hypocalcemia; E78.5 Hyperlipidemia, unspecified; D64.9 Anemia, unspecified; K57.30 Diverticulosis of large intestine without perforation or abscess without bleeding; K44.9 Diaphragmatic hernia without obstruction or gangrene; K21.9 Gastro-esophageal reflux disease without esophagitis; K80.20 Calculus of gallbladder without cholecystitis without obstruction; M19.90 Unspecified osteoarthritis, unspecified site; G30.9 Alzheimer's disease, unspecified; G40.909 Epilepsy, unspecified, not intractable, without status epilepticus; S32.011D Stable burst fracture of first lumbar vertebra, subsequent encounter for fracture with routine healing; Z79.4 Long term (current) use of insulin; Z79.82 Long term (current) use of aspirin; Z86.711 Personal history of pulmonary embolism; Z86.718 Personal history of other venous thrombosis and embolism
CPT/HCPCS: 36415; 72100; 80048; 80053; 82306; 82330; 82607; 82746; 82948; 83036; 83519; 83540; 83550; 83735; 84100; 85014; 85018; 85025; 85027; 85610; 85730; 86850; 86900; 86901; 96374; 96375; 99285; A9270; G0378; J0612; J1815; J2004; J2470; J2704; J7120